=== PATIENT | female | born 1945 | race Caucasian/White ===

== ENCOUNTER 2020-06-05 08:56 | Outpatient (REF) | payer MEDICARE, SELFPAY ==
--- NOTE | 2020-06-05 | US_ITS ---
EXAMINATION: US RETROPERITONEAL LIMITED (RENAL ONLY) CLINICAL INFORMATION: Cyst of kidney. COMPARISON: Ultrasound abdomen 09/20/2019, CT abdomen without and with contrast 11/15/2019. TECHNIQUE: Real-time imaging of the kidneys. The bladder is not imaged. FINDINGS: RIGHT KIDNEY: 6.3 x 4.5 x 4.7 cm (SAG x AP x TRV). Similar size to prior exam 09/20/2019. There is no hydronephrosis, caliectasis, or visible calculi. Renal parenchymal echogenicity is normal. Lower pole cortical thinning is better appreciated on the CT exam. There is no parenchymal mass. LEFT KIDNEY: 12.3 x 5.7 x 5.1 cm (SAG x AP x TRV). There is prominent extrarenal pelvis and mild fullness upper ureter without overt hydronephrosis renal sinus or caliectasis. There is normal renal parenchymal thickness and echogenicity. The upper pole complex cystic mass for follow-up measures 4.0 x 3.8 x 3.1 cm. This is similar to prior CT measurements 4.1 x 3.8 x 2.8 cm. Again, there are are several internal septations measuring up to 3 mm in thickness. No associated vascularity seen on color Doppler within the septations. No interval solid component. US/US renal BI IMPRESSION: 1. Right: Stable renal atrophy. No hydronephrosis, calculi, or mass. 2. Left: Stable complex cystic mass upper pole 4.0 cm with moderate avascular internal septations. Fullness proximal left ureter and extrarenal pelvis. No intrarenal hydronephrosis.
== END 2020-06-05 08:57 | disposition home or self-care (01) ==
LOC: HO.HMGCX 08:56
PROVIDERS: PCP Internal Medicine; Visit Provider Urology
DX: N28.1 Cyst of kidney, acquired (principal)
CPT/HCPCS: 76775

== ENCOUNTER → 2020-06-17 11:12 | Outpatient (BNVA) | payer MEDICARE, SELFPAY | PROVIDERS: PCP Internal Medicine; Visit Provider Urology | DX: N32.81 Overactive bladder (principal); N28.1 Cyst of kidney, acquired | CPT/HCPCS: Q3014 ==

== ENCOUNTER 2020-09-14 09:27 | Outpatient (REF) | payer MEDICARE, SELFPAY ==
[2020-09-14 11:09] LABS: MANUAL DIFF FLAG NO
[2020-09-14 11:16] LABS: Basophils Absolute Auto 0.1 X10*3/uL (0.0-0.2); Basophils Percent Auto 1.2 % (0-2); Eosinophils Absolute Auto 0.2 X10*3/uL (0.0-0.4); Eosinophils Percent Auto 3.8 % (0-4); Hematocrit 39.7 % (37-47); Hemoglobin 12.5 g/dl (12.0-16.0); Imm Gran Abs Auto 0.02 X10*3/uL (0.00-0.03); Imm Gran Pct Auto 0.3 % (0.0-0.4); Lymphocytes Absolute Auto 1.5 X10*3/uL (1.2-4.9); Lymphocytes Percent Auto 26.2 % (20-40); Mean Corpuscular HGB Conc 31.5 g/dl (31.0-35.0); Mean Corpuscular Hemoglobin 28.3 pg (27.0-33.0); Mean Platelet Volume 11.5 fL (9.4-12.3); Monocytes Absolute Auto 0.6 X10*3/uL (0.1-1.2); Monocytes Percent Auto 10.3 % (2-11); Neutrophils Absolute Auto 3.4 X10*3/uL (2.0-8.3); Neutrophils Percent Auto 58.2 % (45-73); Platelet Count 213 X10*3/uL (160-400); Red Blood Count 4.41 X10*6/uL (4.20-5.50); Red Cell Distribution Width 12.7 % (11.0-16.0); White Blood Count 5.8 X10*3/uL (4.8-10.8)
[2020-09-14 11:56] LABS: Alanine Aminotransferase 31 U/L (0-31); Albumin Level 4.4 g/dL (3.5-5.0); Alkaline Phosphatase 48 U/L (39-117); Anion Gap 16 (12-20); Aspartate Amino Transferase 33 U/L (5-31); Bilirubin Total 1.2 mg/dL (0.0-1.0); Blood Urea Nitrogen 18 mg/dL (9-16); Calcium 9.9 mg/dL (8.4-10.2); Carbon Dioxide 27 mmol/L (22-29); Chloride 102 mmol/L (96-108); Cholesterol 191 mg/dL; Estimated Glomerular Filt Rate > 60; Glucose Random 95 mg/dL (60-115); HDL Cholesterol 75 mg/dL; LDL Cholesterol Calculated 102 mg/dl; Potassium 4.7 mmol/L (3.3-5.1); Sodium 140 mmol/L (135-145); Total Protein 7.3 g/dL (6.5-8.0); Triglycerides 73 mg/dL
[2020-09-14 12:18] LABS: Thyroid Stimulating Hormone 2.47 uIU/mL (0.32-4.0); Vitamin D 25-OH Total 57.1 ng/mL (>30)
[2020-09-14 12:24] LABS: Folate 15.6 ng/mL (> or = 4.0); Vitamin B12 188 pg/mL (200-900)
== END 2020-09-14 09:28 | disposition home or self-care (01) ==
LOC: HO.HMGCLDS 09:27
PROVIDERS: PCP Internal Medicine; Visit Provider Internal Medicine
DX: I10 Essential (primary) hypertension (principal); E78.00 Pure hypercholesterolemia, unspecified; R94.6 Abnormal results of thyroid function studies; M81.0 Age-related osteoporosis without current pathological fracture
CPT/HCPCS: 36415; 80053; 80061; 82306; 82607; 82746; 84439; 84443; 85025

== ENCOUNTER 2021-01-15 08:21 | Outpatient (REF) | payer MEDICARE, SELFPAY ==
--- NOTE | ~2021-01-15 | US_ITS ---
EXAMINATION: US RETROPERITONEAL LIMITED (RENAL ONLY) CLINICAL INFORMATION: Calculus of kidney. COMPARISON: Renal ultrasound 06/05/2020. CT abdomen and pelvis 11/15/2019. Ultrasound abdomen complete 09/20/2019. TECHNIQUE: Real-time imaging of the kidneys. FINDINGS: RIGHT KIDNEY: 6.6 x 3.5 x 5.0 cm (SAG x AP x TRV). The kidney is smaller than the left with lower pole renal cortical thinning or scarring. No renal stone, mass or hydronephrosis is seen. LEFT KIDNEY: 12.7 x 4.5 x 5.0 cm (SAG x AP x TRV). The kidney is normal in size, contour, and echogenicity. Renal cortical thickness is normal. There is a 4.7 x 3.9 x 4.1 cm complex cyst in the upper pole with septation or this measured 4 x 3.8 x 3.1 cm on June 2020 exam and may be slightly increased in size. No renal calculi or hydronephrosis. US/US renal BI IMPRESSION: No stone seen. Small right kidney. 4.7 x 3.9 x 4.1 cm complex left renal cyst. This may be slightly increased in size compared to previous exams.
== END 2021-01-15 08:22 | disposition home or self-care (01) ==
LOC: HO.HMGCX 08:21
PROVIDERS: PCP Internal Medicine; Visit Provider Urology
DX: N20.0 Calculus of kidney (principal); N28.1 Cyst of kidney, acquired; N28.0 Ischemia and infarction of kidney
CPT/HCPCS: 76775

== ENCOUNTER 2021-01-19 08:05 | Outpatient (REF) | payer MEDICARE, SELFPAY ==
[2021-01-20 15:37] LABS: Folate 11.8 ng/mL (> or = 4.0); Vitamin B12 575 pg/mL (200-900)
[2021-01-22 19:05] LABS: Intrinsic Factor Antibodies Negative (Negative)
[2021-01-25 14:01] LABS: Parietal Cell Antibody 46.6 Unit (<=20.0)
== END 2021-01-19 08:06 | disposition home or self-care (01) ==
LOC: HO.HMGCLDS 08:05
PROVIDERS: PCP Internal Medicine; Visit Provider Internal Medicine
DX: E53.8 Deficiency of other specified B group vitamins (principal)
CPT/HCPCS: 36415; 82607; 82746; 83516; 86340

== ENCOUNTER → 2021-07-22 08:51 | Outpatient (REF) | payer MEDICARE, SELFPAY ==
--- NOTE | 2021-07-22 08:56 | CA_ITS ---
Acquisition Time: 2021-07-22 09:04:43 Total Exercise Time: 00:04:34 Test Indications: CHEST PAIN Medications: Protocol: HEIDI Max HR: 148 BPM 100% of Pred: 147 BPM Max BP: 148/084 mmHG Max Work Load: 6.4 METS Exercise stress test with exercise 4 min 34 sec of Heidi protocol, with moderate shortness of breath, no chest discomfort, with isolated PAC which increase in stage 2 with runs of atrial bigeminy, with normotensive response to exercise, without EKG changes meeting criteria for ischemia at peak exercise, then with scooping ST segment inferiorly in recovery. Breathing normalized quickly with rest. Test reviewed with Dr Green. Message sent to Dr Wallace with above report and recommendation for pharmacological nuclear stress test for further evaluation. Referred By: Murray Wallace Overread By: JENIFFER GOMEZ
--- NOTE | 2021-07-22 08:56 | ECG_ITS ---
Test Reason : chest pain Blood Pressure : / mmHG Vent. Rate : 076 BPM Atrial Rate : 076 BPM P-R Int : 120 ms QRS Dur : 082 ms QT Int : 392 ms P-R-T Axes : 040 012 057 degrees QTc Int : 441 ms Normal sinus rhythm Normal ECG No previous ECGs available Referred By: Murray Wallace Electronically Signed By:Orville Green
== END ==
LOC: HO.CARD 08:51
PROVIDERS: PCP Internal Medicine; Visit Provider Internal Medicine
DX: R07.9 Chest pain, unspecified (principal)
CPT/HCPCS: 93005; 93017

== ENCOUNTER 2021-08-17 08:03 | Outpatient (REF) | payer MEDICARE, SELFPAY ==
--- NOTE | ~2021-08-17 | XR_ITS ---
EXAMINATION: XR CHEST CLINICAL INFORMATION: Chest pain. COMPARISON: None TECHNIQUE: 2 views of the chest were obtained. FINDINGS: The lungs are well-expanded and clear. The heart size and pulmonary vascularity is normal. No gross bony abnormality seen. There is a round calcification in the right breast likely calcified capsule surrounding the prosthesis. XR/XR chest 2V IMPRESSION: No acute cardiopulmonary process seen.
[2021-08-17 11:36] LABS: MANUAL DIFF FLAG NO
[2021-08-17 11:46] LABS: Basophils Absolute Auto 0.1 X10*3/uL (0.0-0.2); Basophils Percent Auto 1.4 % (0-2); Eosinophils Absolute Auto 0.2 X10*3/uL (0.0-0.4); Eosinophils Percent Auto 4.5 % (0-4); Imm Gran Abs Auto 0.03 X10*3/uL (0.00-0.03); Imm Gran Pct Auto 0.6 % (0.0-0.4); Lymphocytes Absolute Auto 1.5 X10*3/uL (1.2-4.9); Lymphocytes Percent Auto 29.8 % (20-40); Mean Corpuscular HGB Conc 31.6 g/dl (31.0-35.0); Mean Corpuscular Hemoglobin 28.4 pg (27.0-33.0); Mean Platelet Volume 10.8 fL (9.4-12.3); Monocytes Absolute Auto 0.6 X10*3/uL (0.1-1.2); Monocytes Percent Auto 12.2 % (2-11); Neutrophils Absolute Auto 2.5 x10*3/uL (2.0-8.3); Neutrophils Percent Auto 51.5 % (45-73); Platelet Count 209 X10*3/uL (160-400); Red Blood Count 4.22 X10*6/uL (4.20-5.50); Red Cell Distribution Width 12.9 % (11.0-16.0); White Blood Count 4.9 X10*3/uL (4.8-10.8)
[2021-08-17 11:56] LABS: Alanine Aminotransferase 25 U/L (0-31); Albumin Level 4.1 g/dL (3.5-5.0); Alkaline Phosphatase 42 U/L (39-117); Anion Gap 10 (12-20); Aspartate Amino Transferase 28 U/L (5-31); Bilirubin Total 0.8 mg/dL (0.0-1.0); Blood Urea Nitrogen 13 mg/dL (9-16); Calcium 10.1 mg/dL (8.4-10.2); Carbon Dioxide 30 mmol/L (22-29); Chloride 105 mmol/L (96-108); Cholesterol 162 mg/dL; Estimated Glomerular Filt Rate > 60; Glucose Random 101 mg/dL (60-115); HDL Cholesterol 66 mg/dL; LDL Cholesterol Calculated 85 mg/dl; Potassium 5.1 mmol/L (3.3-5.1); Sodium 140 mmol/L (135-145); Total Protein 7.2 g/dL (6.5-8.0); Triglycerides 55 mg/dL
[2021-08-17 12:17] LABS: Free T4 (Free Thyroxine) 1.01 ng/dL (0.71-1.85); Thyroid Stimulating Hormone 3.16 uIU/mL (0.32-4.0); Vitamin D 25-OH Total 53.3 ng/mL (>30)
[2021-08-17 12:25] LABS: B Type Natriuretic Peptide 73 pg/mL (<100)
[2021-08-17 12:35] LABS: Folate 17.7 ng/mL (> or = 4.0); Vitamin B12 618 pg/mL (200-900)
== END 2021-08-17 08:04 | disposition home or self-care (01) ==
LOC: HO.HMGCLDS 08:03
PROVIDERS: PCP Internal Medicine; Visit Provider Internal Medicine
DX: R07.9 Chest pain, unspecified (principal); E78.00 Pure hypercholesterolemia, unspecified
CPT/HCPCS: 36415; 71046; 80053; 80061; 82306; 82607; 82746; 83880; 84439; 84443; 85025

== ENCOUNTER 2021-10-12 15:42 | Outpatient (REF) | payer MEDICARE, SELFPAY ==
--- NOTE | 2021-10-12 17:32 | PFT_ITS ---
FLOWS: FEV1 102% of predicted at 2.48 L. FVC 97% of predicted at 3.13 L. FEV1 to FVC ratio of 0.79. No bronchodilator response. LUNG VOLUMES: Total lung capacity 94% of predicted at 5.20 L. Residual volume 84% of predicted at 2.03 L. Slow vital capacity 102% of predicted at 3.17 L. Expiratory reserve volume 64% of predicted at 0.48 L. Diffusion capacity is mildly decreased. IMPRESSION: No obstructive or restrictive ventilatory defect. No bronchodilator response. Isolated decrease in diffusion capacity suggests underlying pulmonary edema. Clinical correlation is advised. MD CARLY Garza/MODL / [id number]
== END 2021-10-12 15:43 | disposition home or self-care (01) ==
LOC: HO.RESP 15:42
PROVIDERS: PCP Internal Medicine; Visit Provider Internal Medicine
DX: R06.02 Shortness of breath (principal)
CPT/HCPCS: 94060; 94727; 94729

== ENCOUNTER → 2021-10-26 07:57 | Outpatient (REF) | payer MEDICARE, SELFPAY ==
--- NOTE | ~2021-10-26 | NM_ITS ---
Lexiscan Myocardial perfusion study Indication: Chest pain, assess for coronary disease and ischemia Technique: The patient was brought in for a Lexiscan perfusion study on 10/26/2021 and was injected 0.4 mg of Lexiscan intravenously. Within a minute of this injection 25 mCi of sestamibi was given intravenously. Images were obtained using the SPECT gamma camera interlaced with the gating device. Images were obtained in supine position. Resting perfusion study was performed on 10/29/2021. Patient was administered 25 mCi of sestamibi intravenously at rest. Images were then obtained in supine position. Total DLP 80mGy-cm. Images were processed with the software and compared side to side in short axis, horizontal long axis and vertical long axis views. Findings: Raw acquisition was reviewed. The stress perfusion study showed no significant perfusion abnormality. Both uncorrected as well as CT attenuation corrected images were reviewed. The gated study shows normal LV systolic function with calculated LVEF of 70%. LV cavity is normal in size. The gated study shows normal wall thickening and contraction of segments. Resting study shows diminished tracer uptake in the distal part of anterior wall. There is significant improvement with CT attenuation correction suggestive of soft tissue attenuation artifact. Gating at rest reveals normal wall motion with ejection fraction at > 70%. The findings are consistent with no definite reversible or fixed perfusion defects. NM/NM yonatan perf SPECT rest & str Impression: 1. Myocardial perfusion imaging study shows no definitive evidence of any ischemia or infarction. Likely normal myocardial perfusion. 2. Gated LVEF is 70% during stress; > 70% during rest. 3. Transient ischemic dilatation not present. EKG component of the test reported separately.
--- NOTE | 2021-10-26 07:59 | CA_ITS ---
Acquisition Time: 2021-10-26 08:24:09 Total Exercise Time: 00:02:00 Test Indications: Abnormal Treadmill Test Medications: Protocol: LEXISCAN Max HR: 112 BPM 76% of Pred: 146 BPM Max BP: 132/074 mmHG Max Work Load: 1.6 METS Pharmacological stress test with Lexiscan injection, while walking on treadmill, without anginal symptoms, with isolated PACs and runs of atrial bigeminy, with normotensive response to injection, with nondiagnostic EKG for ischemia. In recovery she reported dizziness that was treated with Aminophyllne 75mg IVP to reverse Lexiscan with resolution of symptom. Nuclear images pending. Test reviewed with Dr Strickland. Referred By: Murray Wallace Overread By: JENIFFER GOMEZ
== END ==
LOC: HO.CARD 07:57
PROVIDERS: PCP Internal Medicine; Visit Provider Internal Medicine
DX: R07.9 Chest pain, unspecified (principal)
CPT/HCPCS: 78452; 93017; A9500; J0280; J2785

== ENCOUNTER → 2021-12-21 14:48 | Outpatient (REF) | payer MEDICARE, SELFPAY ==
--- NOTE | 2021-12-21 14:50 | CA_ITS ---
Transthoracic Echocardiogram Patient (Last, First, Middle): Nikunj Lizama, Gender: Female Date of : 1945 Age: 76 Procedure Date: 12/21/2021 Procedure Type: Transthoracic Echocardiogram Location: OP Height: 170.18 cm Weight: 68.95 kg BSA: 1.80 m2 Heart Rate: 63 bpm Tower Switch Operator: USAMA Referring MD: Murray Wallace MD Painting Supervisor: Aric Adamson MD Symptoms: R07.9 - Chest pain, unspecified Study Quality: Adequate/TDS/Breast implants ECG Rhythm: Sinus Conclusions: - 1. Normal LV systolic function with grade 1 diastolic dysfunction 2. Normal cardiac valvular Doppler 3. Normal RV systolic pressure 4. No pericardial effusion Findings Left Ventricle Normal left ventricular size, thickness, and systolic function. The visually estimated ejection fraction is between 65-70%. Spectral Doppler is indicative of an impaired relaxation filling pattern. E/E prime ratio is <8, consistent with normal filling pressures. Evidence suggests grade I (mild) diastolic dysfunction. Peak GLS is -18.8%, within normal limits. Right Ventricle Normal right ventricular cavity size and systolic function. Atria The left atrium is normal in size. There is lipomatous hypertrophy of the interatrial septum. There is no evidence of interatrial shunt. The right atrium is normal in size. Aortic Valve The aortic valve structure and function is likely normal. There is no aortic valve stenosis. There is no aortic valve regurgitation. Mitral Valve Normal mitral valve structure and function. There is trace mitral valve regurgitation. There is no mitral valve stenosis. Pulmonic Valve The pulmonic valve was not well visualized. Tricuspid Valve Likely normal tricuspid valve structure and function. There is trace tricuspid valve regurgitation. The right ventricular systolic pressure is normal. The right ventricular systolic pressure is 24 mmHg. Normal right atrial pressure. There is no evidence of pulmonary hypertension. Great Vessels All visible segments of the aorta are normal in size. The pulmonary artery was not well visualized. Venous The inferior vena cava is normal in size and collapses greater than 50% with inspiration. Pericardium/Pleural There is no evidence of pericardial effusion. Prior Study Comparison No prior study available for comparison. Measurements 2D Linear Measurements IVSd: 1.02 0.6-0.9/0.6-1.0 cm LVIDd: 4.50 3.9-5.3/4.2-5.9 cm LVIDd Index: 2.50 2.4-3.2/2.2-3.1 cm/m2 LVIDs: 2.40 2.0-3.6 cm LVPWd: 0.48 0.7-1.1 cm LA Diam: 3.40 2.7-3.8/3.0-4.0 cm LAIDs Index: 1.89 1.5-2.3 cm/m2 LV Mass: 130.09 67-162/88-224 g LV Mass Index: 72.27 43-95/49-115 g/m2 LVOT Diam: 2.00 3.0+(-)1.3 cm 2D Systolic Function EF 4C: 72.10 >55% EF 2C: 73.90 >55% EF BiP: 72.80 >55% Mitral Valve MV Pk E: 0.63 MV PK A: 0.78 MV Decel Time: 202.00 E/A: 0.80 E'Lateral: 7.51 E'Medial: 5.98 E/E' Med: 10.50 E/E' Lat: 8.40 PHT: 59.00 MVA PHT: 3.73 Decel [place]: 3.12 Aortic Valve AoV Pk Steven: 1.34 AoV Mn Steven: 0.92 AoV VTI: 0.28 AoV Pk Grad: 7.00 Aov Mn Grad: 4.00 CARLOS Cont.VTI: 2.55 LVOT LVOT Pk Steven: 1.03 LVOT Mn Steven: 0.65 LVOT VTI: 0.23 LVOT Pk Grad: 4.00 LVOT Mn Grad: 2.00 LVOT Diam: 2.00 LVOT Area: 3.14 Diastolic Function MV Pk E: 0.63 MV Pk A: 0.78 E/A: 0.80 E'Medial: 5.98 E/E' Med: 10.50 E' Laterial: 7.51 E/E' Lat: 8.40 Right Ventricle TAPSE (mm): 26.50 TVS' Steven: 15.90 Tricuspid Valve TR Pk Steven: 1.99 TR Pk Grad: 16.00 RA Press: 8.00 RVSP: 24.00 Great Vessels Aorta Sinus of Valsalva: 3.32 2.0-3.5 cm Ao Asc: 3.50 2.1-3.4 cm Ao Arch: 3.10 Ao Desc: 2.40 Pulmonary Veins Pulm Vein S/D 1.20 Pulmonary Valve PV Pk Steven: 0.93 Peak PV Grad: 3.00 Updated in Other Vendor System with Status of Final Aric Adamson MD electronically signed on 12/21/2021 4:55:39 PM with status of Final
== END ==
LOC: HO.CARD 14:48
PROVIDERS: Visit Provider Internal Medicine
DX: R07.9 Chest pain, unspecified (principal)
CPT/HCPCS: 93306; 93356

== ENCOUNTER 2022-04-07 11:28 | Outpatient (REF) | payer MEDICARE, SELFPAY ==
--- NOTE | ~2022-04-07 | US_ITS ---
EXAMINATION: US RETROPERITONEAL LIMITED (RENAL ONLY) CLINICAL INFORMATION: Cyst of kidney, acquired. COMPARISON: Renal ultrasound 01/15/2021 and 06/05/2020. CT abdomen and pelvis 11/15/2019. TECHNIQUE: Real-time imaging of the kidneys. FINDINGS: RIGHT KIDNEY: 6.6 x 3.5 x 4.0 cm (SAG x AP x TRV). The kidney is normal in size, contour, and echogenicity. Renal cortical thickness is normal. No calculi or focal parenchymal lesions. No hydronephrosis. Atrophic right kidney LEFT KIDNEY: 13.6 x 5.4 x 5.2 cm (SAG x AP x TRV). The kidney is normal in size, contour, and echogenicity. Renal cortical thickness is normal. No renal calculi or hydronephrosis. There is a complex anechoic cyst upper pole measuring 4.6 x 3.0 x 4.1 cm. US/US renal BI IMPRESSION: Complex anechoic cyst upper pole left kidney measuring 4.6 cm. Atrophic right kidney appears unremarkable.
== END 2022-04-07 11:29 | disposition home or self-care (01) ==
LOC: HO.US 11:28
PROVIDERS: Visit Provider Urology
DX: N28.1 Cyst of kidney, acquired (principal)
CPT/HCPCS: 76775

== ENCOUNTER → 2022-04-28 13:12 | Outpatient (BNVA) | payer MEDICARE, SELFPAY | PROVIDERS: PCP Internal Medicine; Visit Provider Urology | DX: N28.1 Cyst of kidney, acquired (principal); N32.81 Overactive bladder | CPT/HCPCS: Q3014 ==

== ENCOUNTER 2022-05-17 14:06 | Outpatient (REF) | payer MEDICARE, SELFPAY ==
[2022-05-17 15:43] LABS: Hemoglobin 13.2 g/dl (12.0-16.0); Mean Corpuscular HGB Conc 32.2 g/dl (31.0-35.0); Mean Corpuscular Volume 90.1 fL (80.0-98.0); Mean Platelet Volume 11.3 fL (9.4-12.3); Platelet Count 221 X10*3/uL (160-400); Red Blood Count 4.55 X10*6/uL (4.20-5.50); Red Cell Distribution Width 12.7 % (11.0-16.0); White Blood Count 6.7 X10*3/uL (4.8-10.8)
[2022-05-17 15:51] LABS: Prothrombin Time 11.2 SEC (10.0-13.1)
[2022-05-17 16:13] LABS: Anion Gap 15 (12-20); Blood Urea Nitrogen 16 mg/dL (9-16); Calcium 10.4 mg/dL (8.4-10.2); Carbon Dioxide 25 mmol/L (22-29); Chloride 104 mmol/L (96-108); Estimated Glomerular Filt Rate > 60; Glucose Random 101 mg/dL (60-115); Potassium 4.8 mmol/L (3.3-5.1); Sodium 139 mmol/L (135-145)
== END 2022-05-17 14:07 | disposition home or self-care (01) ==
LOC: HO.LAB 14:06
PROVIDERS: PCP Internal Medicine; Referring Provider Internal Medicine; Visit Provider Internal Medicine
DX: I49.8 Other specified cardiac arrhythmias (principal); I10 Essential (primary) hypertension; R07.9 Chest pain, unspecified; R06.02 Shortness of breath; E78.5 Hyperlipidemia, unspecified; Z79.899 Other long term (current) drug therapy
CPT/HCPCS: 36415; 80048; 85027; 85610; 93005; 99202

== ENCOUNTER → 2022-05-27 08:22 | Outpatient (REF) | payer MEDICARE, SELFPAY ==
--- NOTE | 2022-05-27 08:30 | HM_ITS ---
* Total monitoring time 3 days. * Underlying rhythm is sinus. Average ventricular rate 70/Min. Range 36 to 102/Min. * Rare premature ventricular complexes. Minimal burden, 0.14%. * Occasional premature supraventricular complexes. Billings of about 1%. Very brief runs. * No sustained tachycardias. No significant bradycardia or pauses. * Rapid heartbeat in patient diary correlates with sinus rhythm. MTDD
[2022-05-27 09:13] LABS: Calcium 9.8 mg/dL (8.4-10.2)
[2022-05-29 10:17] LABS: Calcium (PTHI) 9.6 mg/dL (8.6-10.4); PTHI 63 pg/mL (16-77)
[2022-05-30 15:26] LABS: Calcium, Ionized 5.2 mg/dL (4.8-5.6)
== END ==
LOC: HO.CARD 08:22
PROVIDERS: Absent Provider Internal Medicine; PCP Internal Medicine; Visit Provider Internal Medicine
DX: I49.8 Other specified cardiac arrhythmias (principal); R06.02 Shortness of breath; E83.52 Hypercalcemia
CPT/HCPCS: 36415; 82310; 82330; 83970; 93242

== ENCOUNTER 2022-05-31 08:28 | Outpatient (REF) | payer MEDICARE, SELFPAY ==
--- NOTE | ~2022-05-31 | MM_ITS ---
EXAMINATION: BONE DENSITOMETRY CLINICAL INDICATION: Hypercalcemia. COMPARISON: Baseline BD dated 07/18/2019. TECHNIQUE: Using a [employer] DXA System (software version: 13.1) manufactured by [employer], dual-energy x-ray absorptiometry was performed of the lumbar spine and left hip. The images are of good technical quality. Summary results are attached. FINDINGS: AP SPINE L1-L4: Current: BMD 0.793 g/cm2, Z-score -1.6, T-score -3.2, osteoporosis, 15.4% decrease from baseline (<5% change is not significant). Baseline: BMD 0.937 g/cm2. LEFT FEMUR, NECK: Current: BMD 0.658 g/cm2, Z-score -0.9, T-score -2.7, osteoporosis. Baseline: BMD 0.724 g/cm2. LEFT FEMUR, TOTAL: Current: BMD 0.648 g/cm2, Z-score -1.2, T-score -2.9, osteoporosis, 6.4% decrease from baseline (<5% change is not significant). Baseline: BMD 0.692 g/cm2. IDENTIFIED RISK FACTORS: Menopause, family history (parental hip fracture), history of fracture (adult), osteoporosis. HISTORY OF FRACTURE: Ankle. MEDICATIONS: Vitamin D. MM/XR DEXA axial skeleton IMPRESSION: 1. DIAGNOSIS: Osteoporosis based on the lowest T-score value of -3.2 in the lumbar spine applying World Health Organization criteria. 2. 10-YEAR FRACTURE RISK PREDICTION, FRAX: According to the guidelines, FRAX calculation should only be performed on patients in the osteopenia bone density category. Therefore, FRAX was not performed on this patient. 3. Treatment Recommendations: NOF guidelines recommend consideration for treatment in postmenopausal women and men age 50 and older presenting with the following: -A hip or vertebral (clinical or morphometric) fracture. -T-score less than or equal to -2.5 at the femoral neck or spine after appropriate evaluation to exclude secondary causes. -Low bone mass at the hip or spine and a 10-year fracture probability by FRAX of greater than or equal to 3% for hip fracture or greater than or equal to 20% for major osteoporotic fracture based on the [place] adapted WHO algorithm. 4. Other Recommendations: All treatment decisions require clinical judgment and consideration of individual patient factors, including patient preferences, comorbidities, previous drug use, risk factors not captured in the FRAX model (e.g. frailty, falls, vitamin D deficiency, increased bone turnover, interval significant decline in bone density) and possible under or overestimation of fracture risk by FRAX. Additional medical evaluation for secondary cause of low bone mineral density may be appropriate. FUTURE SCAN RECOMMENDATION: People with diagnosed cases of osteoporosis or at high risk for fracture should have regular bone mineral density tests. For patients eligible for Medicare, routine testing is allowed once every 2 years. The testing frequency can be increased to one year for patients who have rapidly progressing disease, those who are receiving or discontinuing medical therapy to restore bone mass, or have additional risk factors.
== END 2022-05-31 08:29 | disposition home or self-care (01) ==
LOC: HO.MAMMO 08:28
PROVIDERS: PCP Internal Medicine; Visit Provider Internal Medicine
DX: Z13.820 Encounter for screening for osteoporosis (principal); Z78.0 Asymptomatic menopausal state; M81.0 Age-related osteoporosis without current pathological fracture; E83.52 Hypercalcemia
CPT/HCPCS: 77080

== ENCOUNTER → 2022-06-29 13:38 | Outpatient (BNVA) | payer MEDICARE, SELFPAY | PROVIDERS: PCP Internal Medicine; Referring Provider Internal Medicine; Visit Provider Nurse Practitioner Family | DX: R06.02 Shortness of breath (principal); R07.9 Chest pain, unspecified; I25.10 Atherosclerotic heart disease of native coronary artery without angina pectoris; I10 Essential (primary) hypertension; Z98.890 Other specified postprocedural states | CPT/HCPCS: 99212 ==

== ENCOUNTER → 2022-09-06 09:47 | Outpatient (BNVA) | payer MEDICARE, SELFPAY | PROVIDERS: PCP Internal Medicine; Visit Provider Internal Medicine | DX: R06.02 Shortness of breath (principal); Z98.890 Other specified postprocedural states | CPT/HCPCS: 99202 ==

== ENCOUNTER → 2022-12-27 13:03 | Outpatient (BNVA) | payer MEDICARE, SELFPAY | PROVIDERS: PCP Internal Medicine; Referring Provider Internal Medicine; Visit Provider Internal Medicine | DX: I51.89 Other ill-defined heart diseases (principal); I49.8 Other specified cardiac arrhythmias; R06.02 Shortness of breath; I10 Essential (primary) hypertension | CPT/HCPCS: 93005; 99212 ==

== ENCOUNTER 2023-03-24 08:07 | Outpatient (REF) | payer MEDICARE, SELFPAY ==
[2023-03-24 12:26] LABS: Anion Gap 12 (12-20); Blood Urea Nitrogen 13 mg/dL (9-16); Calcium 10.1 mg/dL (8.4-10.2); Carbon Dioxide 28 mmol/L (22-29); Chloride 101 mmol/L (96-108); Estimated Glomerular Filt Rate > 60; Glucose Random 94 mg/dL (60-115); Potassium 4.3 mmol/L (3.3-5.1); Sodium 137 mmol/L (135-145)
== END 2023-03-24 08:08 | disposition home or self-care (01) ==
LOC: HO.HMGCLDS 08:07
PROVIDERS: PCP Internal Medicine; Visit Provider Internal Medicine
DX: I25.10 Atherosclerotic heart disease of native coronary artery without angina pectoris (principal)
CPT/HCPCS: 36415; 80048

== ENCOUNTER 2023-03-30 12:42 | Outpatient (AMB) | payer MEDICARE, SELFPAY ==
--- NOTE | 2023-03-30 12:43 | MHC.OFFVIS ---
Intake Vital Signs 03/30/23 12:45 Height 5 ft 7.5 in Weight 148 lb 9.465 oz BMI 22.9 BP 129/66 Blood Pressure Location Lt brachial Position Sitting Respiration 16 Pulse 96 Pulse Source Pulse Oximeter Pulse Oximetry (%) 100 Oxygen Delivery Method Room Air Intake Visit Reasons: 3 mth f/up Golf Ball Cover Treater Required: No Allergies sulfur Allergy (Unknown, Verified 03/30/23 12:48) hives Medication List - Last Reconciled 03/30/23 by Los Strickland MD albuterol sulfate 90 mcg/actuation (Ventolin HFA) 2 puffs inhalation Q4-6H PRN amlodipine 10 mg PO DAILY 90 days atorvastatin 80 mg PO DAILY biotin 10,000 mcg PO DAILY cholecalciferol (vitamin D3) 25 mcg PO DAILY cyanocobalamin (vitamin B-12) 1,000 mcg PO DAILY oxybutynin chloride ER 10 mg PO DAILY 90 days rimegepant (Nurtec ODT) 75 mg PO Q OTHER DAY spironolacton-hydrochlorothiaz 25-25 mg 1 tab PO DAILY vitamin B comp and C no.3 (B Complex Plus Vitamin C) 1 cap PO DAILY HPI HPI Comments History of Present Illness Details Nikunj returns for follow-up. She was seen in consultation regarding shortness of breath and chest discomfort. Per patient, she still feels short of breath with any kind of activity. She underwent extensive workup including cardiac catheterization but no significant findings. Denies any history of prior smoking. Symptoms possibly related to exercise-induced diastolic dysfunction but not clear. Deconditioning also may play a role. [facility] Medical History (Updated 12/27/22 @ 15:41 by Los Strickland MD) Hypercalcemia Atrial arrhythmia Shortness of breath on exertion Chest pain Vitamin B12 deficiency Impacted cerumen of right ear TSH elevation CVA (cerebral vascular accident) Anemia Left renal mass Osteoporosis Hypertension Hypercholesterolemia Surgical History History of ankle surgery History of breast implant History of bunionectomy History of cardiac cath History of tubal ligation Family History Father Colon cancer Mother CHF (congestive heart failure) Daughter In good health Son In good health Sister In good health Sister In good health Sister In good health Brother In good health Social History Housing: House Alcohol intake: current Alcohol intake frequency: a few times a month Patient Tobacco Use Status: Never used Tobacco e-Cigarette/Vaping Use: Never Used Second Hand Smoke Exposure: No Current occupational status: retired Cognitive needs: No Hearing needs: Yes Vision needs: Yes Review of Systems Const Denies weakness ENT Denies dizziness Card Denies chest pain, Denies chest pain with activity, Denies syncope, Denies rapid heart rate, Denies pedal edema, Denies edema, Denies leg edema, Denies lightheadedness, Denies palpitations, Reports dyspnea, Reports dyspnea on exertion and Denies orthopnea Resp Denies cough, Reports dyspnea and Reports dyspnea on exertion GI Denies hematochezia and Denies change in stool character Reports no additional complaints and Reports as per HPI Musc Denies abnormal gait, Denies muscle cramps, Denies muscle weakness, Denies numbness, Denies radiating pain into limb and Denies tingling Skin/Breast Reports system reviewed and no additional complaints, except as documented and Reports as per HPI Neuro Denies abnormal gait, Denies dizziness, Denies syncope, Denies numbness, Denies tingling and Denies weakness Psych Reports no additional complaints and Reports as per HPI Endo Denies palpitations Physical Exam Vital Signs: Last Vital Signs Pulse 96 03/30/23 12:45 Resp 16 03/30/23 12:45 BP 129/66 03/30/23 12:45 Pulse Ox 100 03/30/23 12:45 Oxygen Delivery Method Room Air 03/30/23 12:45 BMI result Body Mass Index 22.9 Const General: comfortable and no acute distress Orientation/consciousness: patient oriented x3 HEENT Other: Unremarkable Head: Yes normal to inspection Neck Neck: Yes normal visual inspection Chest Chest palpation & inspection: normal inspection of the chest Resp Auscultation: clear to auscultation bilaterally Cardio Palpation: normal PMI Heart sounds: S1 normal heart sound present, S2 normal heart sound present, no gallops, no murmurs and no rubs GI Palpation (GI): Soft to palpation Back/Spine/Pelvis Other: unremarkable Skin General skin exam: no rashes or lesions noted Neuro General: patient oriented x3 Extrem General: Yes normal to inspection Psych Mental Status: mental status grossly normal Assessment & Plan Assessment & Plan (1) Shortness of breath on exertion: Code(s): R06.02 - Shortness of breath (2) Diastolic dysfunction: Code(s): I51.89 - Other ill-defined heart diseases (3) Atrial arrhythmia: Code(s): I49.8 - Other specified cardiac arrhythmias (4) Essential hypertension: Code(s): I10 - Essential (primary) hypertension Plan Pertinent data reviewed. Echocardiogram with LVEF 65-70%, no significant valvular pathology otherwise unremarkable. Mild diastolic dysfunction with normal filling pressures. Strain was also unremarkable. Myocardial perfusion imaging study without any definitive evidence of ischemia or infarction. In pulmonary function testing, described to have decreased diffusion capacity suggesting pulmonary edema. However, no obstructive or restrictive defects. In the cardiac catheterization, proximal circumflex/1st marginal 40% stenosis. Otherwise unremarkable. Normal left and right-sided filling pressures. She may have exercise-induced diastolic dysfunction/pulmonary hypertension. Other possibility being deconditioned. We will try to do an exercise stress echocardiogram, specifically looking at the diastolic parameters/pulmonary artery pressure. Will also get a chest CT scan. Otherwise, continue current meds for blood pressure. They seem to be better regulated. Follow-up after the above. Orders: Orders CA echo stress exercise Today I27.20 - Pulmonary hypertension, unspecified, I51.89 - Other ill-defined heart diseases, R06.02 - Shortness of breath CT chest wo IV con Today R06.02 - Shortness of breath Coding Level of Care Code Est Pt Level 4 (21521) Diagnoses Shortness of breath on exertion R06.02 Diastolic dysfunction I51.89 Atrial arrhythmia I49.8 Essential hypertension I10
[2023-03-30 12:45] VITALS: BP 129/66; PULSE 96; RESP 16; O2SAT 100; BMI 22.9
== END 2023-03-30 13:05 | disposition home or self-care (01) ==
PROVIDERS: PCP Internal Medicine; Visit Provider Internal Medicine
DX: R06.02 Shortness of breath (principal); I51.89 Other ill-defined heart diseases; I49.8 Other specified cardiac arrhythmias; I10 Essential (primary) hypertension
CPT/HCPCS: 99214

== ENCOUNTER → 2023-03-30 12:42 | Outpatient (BNVA) | payer MEDICARE, SELFPAY | PROVIDERS: PCP Internal Medicine; Visit Provider Internal Medicine | DX: R06.02 Shortness of breath (principal); I11.9 Hypertensive heart disease without heart failure; I49.8 Other specified cardiac arrhythmias | CPT/HCPCS: 99212 ==

== ENCOUNTER 2023-04-11 08:49 | Outpatient (REF) | payer MEDICARE, SELFPAY ==
--- NOTE | ~2023-04-11 | US_ITS ---
EXAMINATION: US RETROPERITONEAL LIMITED (RENAL ONLY) CLINICAL INFORMATION: Cyst of kidney, acquired. COMPARISON: Ultrasound retroperitoneal limited (renal only) 04/07/2022 and 01/15/2021. CT abdomen and pelvis 11/15/2019. TECHNIQUE: Real-time imaging of the kidneys. FINDINGS: RIGHT KIDNEY: 6.4 x 3.7 x 4.6 cm (SAG x AP x TRV). The kidney is normal in contour and echogenicity. Renal cortical thickness is normal. No calculi or focal parenchymal lesions. No hydronephrosis. LEFT KIDNEY: 14.0 x 5.6 x 4.8 cm (SAG x AP x TRV). The kidney is normal in size, contour, and echogenicity. Renal cortical thickness is normal. No renal calculi or hydronephrosis. Upper pole cyst with calcified septations measuring 4.6 x 3.8 x 4.2 cm. US/US renal BI IMPRESSION: Complex left upper pole cyst. Bosniak 2F.
== END 2023-04-11 08:50 | disposition home or self-care (01) ==
LOC: HO.HMGCX 08:49
PROVIDERS: PCP Internal Medicine; Visit Provider Nurse Practitioner Family
DX: N28.1 Cyst of kidney, acquired (principal)
CPT/HCPCS: 76775

== ENCOUNTER → 2023-04-13 10:47 | Outpatient (REF) | payer MEDICARE, SELFPAY ==
--- NOTE | 2023-04-13 10:55 | CA_ITS ---
Acquisition Time: 2023-04-13 11:13:53 Total Exercise Time: 00:04:57 Test Indications: Dyspnea Medications: SEE H Protocol: HEIDI Max HR: 162 BPM 111% of Pred: 145 BPM Max BP: 134/080 mmHG Max Work Load: 6.9 METS Exercise stress test exercise 4 min 57 sec of Heidi protocol achieving 94% MPHR, with moderate SOB, no chest discomfort, without arrhythmias, with normotensive response to exercise, with downsloping noted leads 2, 3, aVF . Echo images obtained by tech at rest and immediately post exercise. Test reviewed with Dr. Green Exercise stress echocardiogram reviewed. This was done for diastolic function assessment. Resting medial e' 8cm/s. Resting lateral e' 6cm/s. E/e' 7. Resting PASP 24mmHg. Post exercise medial e' 6cm/s; lateral e' 7cm/s; E/e' 11; PASP 38mmHg. Overall, no clear evidence of exercise induced diastolic dysfunction or pulmonary hypertension. Referred By: Michael Strickland Overread By: MICHAEL STRICKLAND
== END ==
LOC: HO.CARD 10:47
PROVIDERS: Visit Provider Internal Medicine
DX: R06.02 Shortness of breath (principal); I51.89 Other ill-defined heart diseases
CPT/HCPCS: 93017; 93350; Q9957

== ENCOUNTER → 2023-04-13 10:55 | Outpatient (BNV) | payer MEDICARE, SELFPAY | PROVIDERS: Visit Provider Internal Medicine | DX: R06.02 Shortness of breath (principal) | CPT/HCPCS: 93016; 93018; 93350 ==

== ENCOUNTER 2023-04-20 07:31 | Outpatient (REF) | payer MEDICARE, SELFPAY ==
--- NOTE | ~2023-04-20 | CT_ITS ---
EXAMINATION: CT CHEST WITHOUT CONTRAST CLINICAL INFORMATION: Shortness of breath. COMPARISON: Chest x-ray to. TECHNIQUE: Multidetector volumetric CT imaging of the chest was done. Axial MIP volume rendering provided. Sagittal and coronal reformatted images were obtained. This CT examination was performed using dose optimization techniques as appropriate, variously including the following: *Automated exposure control *Adjustment of mA and/or kV according to patient size (this includes techniques or standardized protocols for targeted exams where dose is matched to indication/reason for exam; i.e. extremities or head) *Use of iterative reconstruction technique DLP: 129 mGy-cm FINDINGS: LUNGS: No consolidation. No evidence of interstitial lung disease. Scattered micronodules. 6 mm average diameter groundglass nodule left upper lobe series 5 image 186. 6 mm average diameter part solid nodule superior segment right lower lobe series 5 image 242. MEDIASTINUM: No adenopathy. No pericardial effusion. Thoracic aorta top normal at 3.9 cm. Small hiatal hernia. CORONARY ARTERY CALCIFICATION: Mild RCA and LAD calcium. PLEURA: There is no pleural effusion. No pleural mass or thickening. AXILLA: No lymphadenopathy. Peripherally calcified breast implants. No focal chest wall mass. UPPER ABDOMEN: Simple cysts in the upper left kidney. No follow-up imaging is recommended. Degenerative changes in the spine. OSSEOUS STRUCTURES: Unremarkable. CT/CT chest wo IV con IMPRESSION: No acute findings. No focal pneumonia. Two 6 mm groundglass and part solid nodules as above. Per Fleischner Society Guidelines recommend a non-contrast chest CT at 3-6 months. Subsequent management based on the most suspicious nodule(s). Fleischner guidelines were followed.
== END 2023-04-20 07:32 | disposition home or self-care (01) ==
LOC: HO.CT 07:31
PROVIDERS: Visit Provider Internal Medicine
DX: R06.02 Shortness of breath (principal)
CPT/HCPCS: 71250

== ENCOUNTER 2023-05-02 13:15 | Outpatient (REF) | payer MEDICARE, SELFPAY | END 2023-05-02 13:16 | disposition home or self-care (01) | LOC: CF 13:15 | PROVIDERS: Visit Provider Nurse Practitioner Family | DX: N28.1 Cyst of kidney, acquired (principal); R35.1 Nocturia; R39.15 Urgency of urination; R35.0 Frequency of micturition; R39.9 Unspecified symptoms and signs involving the genitourinary system | CPT/HCPCS: 81003; 87086; 87088; 87186; 99212 ==

== ENCOUNTER 2023-05-02 13:15 | Outpatient (AMB) | payer MEDICARE, SELFPAY ==
--- NOTE | 2023-05-02 13:35 | MHC.OFFVIS ---
Intake Intake Visit Reasons: Cyst of Kidney- 1yr follow up/US(set) Intake Note: Patient presents today for 1 year follow-up with US Results: Meds- None Allergies to Antibiotic- No Known Allergies Blood Thinner- None Patient Symptoms: None Local Superintendent Required: No Accompanied by: Self / Same As Patient Allergies sulfur Allergy (Unknown, Verified 05/02/23 14:03) hives Medication List - Last Reconciled 05/02/23 by ENID Zeng-TITA albuterol sulfate 90 mcg/actuation (Ventolin HFA) 2 puffs inhalation Q4-6H PRN amlodipine 10 mg PO DAILY 90 days atorvastatin 80 mg PO DAILY biotin 10,000 mcg PO DAILY cholecalciferol (vitamin D3) 25 mcg PO DAILY cyanocobalamin (vitamin B-12) 1,000 mcg PO DAILY nitrofurantoin monohyd/m-cryst 100 mg (Macrobid) 100 mg PO Q12H 7 days oxybutynin chloride ER 10 mg PO DAILY 90 days rimegepant (Nurtec ODT) 75 mg PO Q OTHER DAY spironolacton-hydrochlorothiaz 25-25 mg 1 tab PO DAILY vitamin B comp and C no.3 (B Complex Plus Vitamin C) 1 cap PO DAILY HPI HPI Comments History of Present Illness Details Danielle is a very pleasant 77-year-old female patient. She has a past medical history of hypercalcemia, atrial rhythm E a, vitamin B12 deficiency, CVA, anemia, osteoporosis, hypertension, hypercholesteremia, and left renal cyst. She presents to the office today for follow-up of her complex renal cyst. In discussion with the patient today she reports to be doing and feeling well. She reports noting over the last 1-2 weeks increased episodes of nocturia, urinary urgency, and frequency. In office urinalysis results reviewed with the patient today 3+ leukocytes/negative nitrates; will send for urine culture. Recent renal ultrasound results reviewed with the patient today. Complex left upper pole cyst. Bosniak 2 F. bilateral kidneys with no calculi and or hydronephrosis. Left upper pole cyst with calcified septations measuring 4.6 x 3.8 x 4.2 cm. Discussed at length potential causes for renal cysts. Patient otherwise denies hematuria, dysuria, foul smelling urine, changes to urinary stream, flank pain, fever, and or chills. PFSH Medical History Hypercalcemia Atrial arrhythmia Shortness of breath on exertion Chest pain Vitamin B12 deficiency Impacted cerumen of right ear TSH elevation CVA (cerebral vascular accident) Anemia Left renal mass Osteoporosis Hypertension Hypercholesterolemia Surgical History History of ankle surgery History of breast implant History of bunionectomy History of cardiac cath History of tubal ligation Family History Father Colon cancer Mother CHF (congestive heart failure) Daughter In good health Son In good health Sister In good health Sister In good health Sister In good health Brother In good health Social History Housing: House Alcohol intake: current Alcohol intake frequency: a few times a month Patient Tobacco Use Status: Never used Tobacco e-Cigarette/Vaping Use: Never Used Second Hand Smoke Exposure: No Current occupational status: retired Cognitive needs: No Hearing needs: Yes Vision needs: Yes Review of Systems Const Reports as per HPI Eyes Reports no additional complaints ENT Reports no additional complaints Card Reports as per HPI Resp Reports no additional complaints GI Reports no additional complaints Reports as per HPI Musc Reports as per HPI Neuro Reports as per HPI Psych Reports no additional complaints Endo Reports no additional complaints Malik/Lymph Reports no additional complaints Aller/Immun Reports no additional complaints Physical Exam Const General: cooperative, healthy appearing, comfortable, no acute distress, well developed, alert and awake Orientation/consciousness: patient oriented x3 Limitations: no limitations HEENT Head: Yes normal to inspection, Yes normocephalic and Yes atraumatic Ears: hearing grossly normal bilaterally Eyes General: appearance normal, both eyes and all related structures Neck Neck: Yes normal visual inspection and Yes trachea midline Chest Chest palpation & inspection: normal inspection of the chest Resp Effort & Inspection: normal respiratory effort and able to speak in complete sentences Cardio Rate: regular rate GI Inspection: Yes normal to inspection General: Yes no CVA tenderness Back/Spine/Pelvis Back: no CVA tenderness Skin General skin exam: no rashes or lesions noted Neuro General: patient oriented x3 Extrem General: Yes normal to inspection Psych Appearance: grossly normal and well kempt Mental Status: mental status grossly normal Speech and movement: Normal speech and movement present and Clear speech present Affect: normal affect Attitude: cooperative Thought process: Normal thought process present Thought content: Normal thought content present Insight: Fair insight present (Psych) Judgement: Fair judgement present (Psych) Results AMB Urinalysis, Automated UA Leukoctes 500 Oleksandr/uL Last Edit by Javan Ogden Jarett on 05/02/23 13:43 3+ Javan Ogden 05/02/23 13:43 UA Nitrite Negative Last Edit by Javan Ogden [facility] on 05/02/23 13:43 UA Urobilinogen 0.2 mg/dL Last Edit by Javan Ogden [facility] on 05/02/23 13:43 UA Protein 15 mg/dL Last Edit by Javan Ogden [facility] on 05/02/23 13:43 UA pH 6.5 Last Edit by Javan Ogden [facility] on 05/02/23 13:43 UA Blood 0 Carson/uL Last Edit by Javan Ogden [facility] on 05/02/23 13:43 UA Specific [place] 1.010 Last Edit by Javan Ogden [facility] on 05/02/23 13:43 UA Ketone Negative Last Edit by Javan Ogden [facility] on 05/02/23 13:43 UA Bilirubin 0 mg/dL Last Edit by Javan Ogden [facility] on 05/02/23 13:43 UA Glucose 0 mg/dL Last Edit by Javan Ogden [facility] on 05/02/23 13:43 Results Reviewed Results Reviewed: Laboratory Last Values Urine pH (Auto) 6.5 05/02/23 13:37 Specific [place] (Auto) 1.010 05/02/23 13:37 Urine Protein (Auto) 15 mg/dL 05/02/23 13:37 Glucose (UA)(Auto) 0 mg/dL 05/02/23 13:37 Urine Ketones (Auto) Negative 05/02/23 13:37 Urine Blood (Auto) 0 Carson/uL 05/02/23 13:37 Urine Nitrite (Auto) Negative 05/02/23 13:37 Urine Bilirubin (Auto) 0 mg/dL 05/02/23 13:37 Urine Urobilinogen (Auto) 0.2 mg/dL 05/02/23 13:37 Leukocyte Esterase (Auto) 500 Oleksandr/uL 05/02/23 13:37 Date of Service: 04/11/23 EXAMINATION: US RETROPERITONEAL LIMITED (RENAL ONLY) CLINICAL INFORMATION: Cyst of kidney, acquired. COMPARISON: Ultrasound retroperitoneal limited (renal only) 04/07/2022 and 01/15/2021. CT abdomen and pelvis 11/15/2019. TECHNIQUE: Real-time imaging of the kidneys. FINDINGS: RIGHT KIDNEY: 6.4 x 3.7 x 4.6 cm (SAG x AP x TRV). The kidney is normal in contour and echogenicity. Renal cortical thickness is normal. No calculi or focal parenchymal lesions. No hydronephrosis. LEFT KIDNEY: 14.0 x 5.6 x 4.8 cm (SAG x AP x TRV). The kidney is normal in size, contour, and echogenicity. Renal cortical thickness is normal. No renal calculi or hydronephrosis. Upper pole cyst with calcified septations measuring 4.6 x 3.8 x 4.2 cm. IMPRESSION: Complex left upper pole cyst. Bosniak 2F. Assessment & Plan Assessment & Plan (1) Complex renal cyst: Code(s): N28.1 - Cyst of kidney, acquired (2) Nocturia: Code(s): R35.1 - Nocturia (3) Urinary urgency: Code(s): R39.15 - Urgency of urination (4) Urinary frequency: Code(s): R35.0 - Frequency of micturition (5) Lower urinary tract symptoms: Code(s): R39.9 - Unspecified symptoms and signs involving the genitourinary system Plan Urinalysis results reviewed with the patient today; as noted above; will send for urine culture. Recent renal ultrasound results reviewed with the patient today; as noted above. Start Macrobid as discussed and prescribed. Discussed at length potential causes for renal cyst. Discussed UTI prevention with D mannose supplement, vitamin-C, increasing fluid intake, behavioral therapy with timed voiding, perineal hygiene and postcoital voiding, and management of constipation with stool softeners and increased fiber intake. Will obtain retroperitoneal ultrasound in 1 year. Follow-up in 1 year with imaging to be completed prior; or sooner with any issues, concerns, and or questions. Orders: Orders Urine Culture Today R35.1 - Nocturia, R39.15 - Urgency of urination US retroperitoneal comp 364 Days N28.1 - Cyst of kidney, acquired AMB Urinalysis Automated Today Z13.9 - Encounter for screening, unspecified Medications: New nitrofurantoin monohyd/m-cryst 100 mg (Macrobid) must administer with a meal/food 100 mg PO Q12H 14 caps 0RF 7 days Patient Instructions: The patient had an opportunity to ask questions regarding the treatment plan. All questions were answered. Physical exam, labs, and imaging were discussed and reviewed in detail. As well as risks, benefits, and discussion of treatment choices. No major barriers to understanding were identified. The patient expressed understanding and agreement with the above treatment plan. The patient was made aware they should contact our office by phone for worsening of their current condition, the appearance of new symptoms, or with any questions or concerns. Compliance is encouraged with any medications and follow up testing that is ordered. It is a privilege to be allowed the opportunity to participate in? your urological care.? Again, if you have any questions or concerns If you have any questions or concerns please do not hesitate to contact me. The office is [phone]. This note is constructed using voice recognition software. While every effort has been made to ensure accuracy watermelon harvesting supervisor errors may have been included. Yours sincerely, PAMELA Zeng Coding Level of Care Code Est Pt Level 4 (69375) Diagnoses Complex renal cyst N28.1 Nocturia R35.1 Urinary urgency R39.15 Urinary frequency R35.0 Lower urinary tract symptoms R39.9
== END 2023-05-02 14:06 | disposition home or self-care (01) ==
PROVIDERS: Visit Provider Nurse Practitioner Family
DX: N28.1 Cyst of kidney, acquired (principal); R35.1 Nocturia; R39.15 Urgency of urination; R35.0 Frequency of micturition; R39.9 Unspecified symptoms and signs involving the genitourinary system
CPT/HCPCS: 99214

== ENCOUNTER 2023-06-02 08:37 | Outpatient (REF) | payer MEDICARE, SELFPAY ==
[2023-06-02 11:22] LABS: MANUAL DIFF FLAG NO
[2023-06-02 11:36] LABS: Basophils Absolute Auto 0.1 X10*3/uL (0.0-0.2); Basophils Percent Auto 1.7 % (0-2); Eosinophils Absolute Auto 0.2 X10*3/uL (0.0-0.4); Imm Gran Abs Auto 0.03 X10*3/uL (0.00-0.03); Imm Gran Pct Auto 0.5 % (0.0-0.4); Lymphocytes Absolute Auto 1.9 X10*3/uL (1.2-4.9); Lymphocytes Percent Auto 31.1 % (20-40); Mean Corpuscular HGB Conc 31.7 g/dl (31.0-35.0); Mean Corpuscular Hemoglobin 29.7 pg (27.0-33.0); Mean Corpuscular Volume 93.8 fL (80.0-98.0); Mean Platelet Volume 11.4 fL (9.4-12.3); Monocytes Absolute Auto 0.7 X10*3/uL (0.1-1.2); Neutrophils Absolute Auto 3.1 x10*3/uL (2.0-8.3); Neutrophils Percent Auto 50.7 % (45-73); Platelet Count 208 X10*3/uL (160-400); Red Blood Count 4.37 X10*6/uL (4.20-5.50); Red Cell Distribution Width 12.9 % (11.0-16.0)
[2023-06-02 12:24] LABS: Alanine Aminotransferase 61 U/L (0-31); Albumin Level 4.3 g/dL (3.5-5.0); Alkaline Phosphatase 38 U/L (39-117); Anion Gap 14 (12-20); Aspartate Amino Transferase 71 U/L (5-31); Bilirubin Total 0.8 mg/dL (0.0-1.0); Blood Urea Nitrogen 16 mg/dL (9-16); Calcium 10.3 mg/dL (8.4-10.2); Carbon Dioxide 27 mmol/L (22-29); Chloride 102 mmol/L (96-108); Cholesterol 188 mg/dL (<200); Estimated Glomerular Filt Rate > 60; Glucose Random 97 mg/dL (60-115); HDL Cholesterol 73 mg/dL (>40); LDL Cholesterol Calculated 100 mg/dL (<100); Sodium 139 mmol/L (135-145); Total Protein 8.1 g/dL (6.5-8.0); Triglycerides 78 mg/dL (<150)
[2023-06-02 12:26] LABS: Free T4 (Free Thyroxine) 1.02 ng/dL (0.71-1.85); Thyroid Stimulating Hormone 2.72 uIU/mL (0.32-4.0); Vitamin D 25-OH Total 47.2 ng/mL (>30)
[2023-06-02 12:31] LABS: Folate 15.3 ng/mL (> or = 4.0); Vitamin B12 > 2000 pg/mL (200-900)
== END 2023-06-02 08:38 | disposition home or self-care (01) ==
LOC: HO.HMGCLDS 08:37
PROVIDERS: PCP Internal Medicine; Visit Provider Internal Medicine
DX: E78.00 Pure hypercholesterolemia, unspecified (principal); M81.0 Age-related osteoporosis without current pathological fracture
CPT/HCPCS: 36415; 80053; 80061; 82306; 82607; 82746; 84439; 84443; 85025

== ENCOUNTER 2023-06-09 10:48 | Outpatient (AMB) | payer MEDICARE, SELFPAY ==
[2023-06-09 10:51] VITALS: BP 140/80; PULSE 63; O2SAT 95; BMI 24.6
--- NOTE | 2023-06-09 10:51 | A.OFFVIS_ITS ---
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 Patient presents today for subsequent annual wellness visit. Bone density screening completed 05/2022 showed osteoporosis Mammogram: Patient reports that she will no longer go for mammogram screening. Colonoscopy: Referral entered Eye exam: Goes for yearly eye exam. Healthcare proxy MOLST forms root with patient in office today patient advised to bring completed forms into office to be scanned into chart. [place] of care was reviewed with patient patient was provided with a written screening schedule Labs reviewed in office with patient today, noted to have elevated calcium 10.3. Labs ordered to follow-up on calcium level, ionized calcium and PTH ordered. Patient noted to have elevated LFTs will repeat LFTs in draw hepatitis panel to further evaluate. [facility] Medical History (Updated 06/09/23 @ 11:28 by ENID Perales) Hypercalcemia Atrial arrhythmia Shortness of breath on exertion Chest pain Vitamin B12 deficiency Impacted cerumen of right ear TSH elevation CVA (cerebral vascular accident) Anemia Left renal mass Osteoporosis Hypertension Hypercholesterolemia Surgical History History of cardiac cath History of ankle surgery History of bunionectomy History of breast implant History of tubal ligation Family History Father Colon cancer Mother CHF (congestive heart failure) Daughter In good health Son In good health Sister In good health Sister In good health Sister In good health Brother In good health Social History Housing: House Alcohol intake: current Alcohol intake frequency: a few times a month Patient Tobacco Use Status: Never used Tobacco e-Cigarette/Vaping Use: Never Used Second Hand Smoke Exposure: No Current occupational status: retired Cognitive needs: No Hearing needs: Yes Vision needs: Yes Questionnaire Medicare Wellness Checkup [age] What gender do you identify with?: female During the past 4 weeks, how much have you been bothered by emotional problems such as feeling anxious, depressed, irritable, sad or downhearted, and blue?: quite a bit During the past 4 weeks, has your physical & emotional health limited your social activities with family, friends, neighbors, or groups?: moderately During the past 4 weeks, how much bodily pain have you generally had?: no pain During the past 4 weeks, was someone available to help you if you needed & wanted help?: yes, quite a bit During the past 4 weeks, what was the hardest physical activity you could do for at least 2 minutes?: heavy Can you get to places out of walking distance without help? (For eg., can you travel alone on buses, taxis or drive your car?): Yes Can you go shopping for groceries or clothes without someone's help?: Yes Can you prepare your own meals?: Yes Can you do your housework without help?: Yes Because of any health problems, do you need the help of another person with your personal care needs such as eating, bathing, dressing or getting around the terrie se?: No Can you handle your own money without help?: Yes During the past 4 weeks, how would you rate your health in general?: fair During the past 4 weeks how have things been going for you?: good & bad parts about equal Are you having difficulties driving your car?: no Do you always fasten your seat belt when you are in a car?: yes, usually During past 4 weeks, have you been bothered by the following: never: Teeth or denture problems? and Problems using the telephone?, seldom: Sexual problems? and sometimes: Falling or dizzy when standing up, Trouble eating well? and Tiredness or fatigue? Have you fallen 2 or more times in the past year?: No Are you afraid of falling?: No Are you a smoker?: no During the past 4 weeks, how many drinks of wine, beer, or other alcoholic beverages did you have?: 1 drink or less per week Do you exercise for about 20 minutes 3 or more times a week?: yes, all the time Have you been given information to help with the following?: no: Hazards in your house that might hurt you? and no: Keeping track of your medications? How often do you have trouble taking medicines the way you have been told to take them?: I always take medicine as prescribed How confident are you that you can control & manage most of your health proble ms?: somewhat confident What is your race?: White PHQ-9 Over the last 2 weeks, how often have you been bothered by any of the following problems? 1. Little interest or pleasure in doing things: more than half the days 2. Feeling down, depressed, or hopeless: more than half the days 3. Trouble falling or staying asleep, or sleeping too much: more than half the days 4. Feeling tired or having little energy: more than half the days 5. Poor appetite or overeating: more than half the days 6. Feeling bad about yourself - or that you are a failure or have let yourself or your family down: more than half the days 7. Trouble concentrating on things, such as reading the newspaper or watching television: not at all 8. Moving or speaking so slowly that other people could have noticed. Or the opposite - being so fidgety or restless that you have been moving around a lot more than usual: not at all 9. Thoughts that you would be better off or of hurting yourself in some way: not at all Total score: 12 39914 - PHQ-9 Billing: Yes Source: Developed by Drs. Steven Omer, Lavonne Mattson, Dom Aguilar and colleagues, with an educational cat from [employer]. Physical Exam Vital Signs: Last Vital Signs Pulse 63 06/09/23 10:51 BP 140/80 H 06/09/23 10:51 Pulse Ox 95 06/09/23 10:51 Oxygen Delivery Method Room Air 06/09/23 10:51 BMI result Body Mass Index 24.6 Const General: cooperative and no acute distress Orientation/consciousness: patient oriented x3 HEENT Ears: other (whisper test: pass) Neuro General: patient oriented x3 Gait exam (Neuro): Normal gait present Coordination: tandem gait normal and Romberg test negative Assessment & Plan Assessment & Plan (1) Hypercholesterolemia: Code(s): E78.00 - Pure hypercholesterolemia, unspecified Plan: Continue on atorvastatin 80 mg daily. Follow low-cholesterol diet and exercise (2) Hypertension: Code(s): I10 - Essential (primary) hypertension Qualifiers: Hypertension type: essential hypertension Qualified Code(s): I10 - Essential (primary) hypertension Plan: Continue on spironolactone-hydrochlorothiazide. Blood pressure goal less than 140/90. Follow low-salt diet and exercise. (3) Medicare annual wellness visit, subsequent: Code(s): Z00.00 - Encounter for general adult medical examination without abnormal findings Plan: Follow-up in 1 year for subsequent annual wellness visit. Patient declined flu shot (4) Hypercalcemia: Code(s): E83.52 - Hypercalcemia Plan: Repeat calcium, ionized calcium and PTH ordered to further evaluate. (5) Elevated LFTs: Code(s): R79.89 - Other specified abnormal findings of blood chemistry Plan: Repeat LFTs and hepatitis panel ordered. Plan Follow-up in 6 months with PCP or sooner if needed. Orders: Orders Comprehensive Met. Panel Today R79.89 - Other specified abnormal findings of blood chemistry Hepatitis A,B,C Profile Today R79.89 - Other specified abnormal findings of blood chemistry Calcium, Ionized Today E83.52 - Hypercalcemia Parathyroid Hormone Intact Today E83.52 - Hypercalcemia Referrals Gastroenterology Referral Z12.11 - Encounter for screening for malignant neoplasm of colon Quality Reporting (2019) Depression/Bipolar (159/160/161/177) PHQ-9: Total score: 12 Coding Level of Care Code Medicare Subsequent (G0439) Diagnoses Hypercholesterolemia E78.00 Essential hypertension I10 Hypertension type: essential hypertension Medicare annual wellness visit, subsequent Z00.00 Hypercalcemia E83.52 Elevated LFTs R79.89 CPT Codes Advance Care Planning - Time spent: 1-15 minutes, not on file ([id number]) Advance Care Planning Date of discussion: 06/09/23 Who was present: patient Forms completed: Health Care Proxy and MOLST Time spent: 1-15 minutes, not on file Actual minutes spent: 2
== END 2023-06-09 11:26 | disposition home or self-care (01) ==
PROVIDERS: Visit Provider Nurse Practitioner Family
DX: E78.00 Pure hypercholesterolemia, unspecified (principal); I10 Essential (primary) hypertension; Z00.00 Encounter for general adult medical examination without abnormal findings; E83.52 Hypercalcemia; R79.89 Other specified abnormal findings of blood chemistry
CPT/HCPCS: 1124F; G0439

== ENCOUNTER 2023-06-27 13:37 | Outpatient (AMB) | payer MEDICARE, SELFPAY ==
[2023-06-27 13:40] VITALS: BP 140/80; PULSE 81; BMI 24.8
--- NOTE | 2023-06-27 13:40 | MHC.OFFVIS ---
Intake Vital Signs 06/27/23 13:40 Height 5 ft 7.5 in Weight 160 lb 14.999 oz BMI 24.8 BP 140/80 H Blood Pressure Location Lt brachial Position Sitting Pulse 81 Intake Visit Reasons: 3 month follow up Intake Note: 3 month follow up Service Order Clerk Required: No Accompanied by: Self / Same As Patient Allergies sulfur Allergy (Unknown, Verified 06/27/23 13:43) hives Medication List - Last Reconciled 06/27/23 by Los Strickland MD albuterol sulfate 90 mcg/actuation (Ventolin HFA) 2 puffs inhalation Q4-6H PRN amlodipine 10 mg PO DAILY 90 days atorvastatin 80 mg PO DAILY biotin 10,000 mcg PO DAILY cholecalciferol (vitamin D3) 25 mcg PO DAILY cyanocobalamin (vitamin B-12) 1,000 mcg PO DAILY oxybutynin chloride ER 10 mg PO DAILY 90 days spironolacton-hydrochlorothiaz 25-25 mg 1 tab PO DAILY vitamin B comp and C no.3 (B Complex Plus Vitamin C) 1 cap PO DAILY HPI HPI Comments History of Present Illness Details Nikunj returns for follow-up. She was seen in consultation regarding shortness of breath and chest discomfort. Per patient, she still feels short of breath with any kind of activity. She underwent extensive workup including cardiac catheterization but no significant findings. Denies any history of prior smoking. Now she has known drug if it is all just psychological as opposed to being something true. [facility] Medical History (Updated 06/27/23 @ 14:45 by Los Strickland MD) Hypercalcemia Atrial arrhythmia Shortness of breath on exertion Chest pain Vitamin B12 deficiency Impacted cerumen of right ear TSH elevation CVA (cerebral vascular accident) Anemia Left renal mass Osteoporosis Hypertension Hypercholesterolemia Surgical History History of cardiac cath History of ankle surgery History of bunionectomy History of breast implant History of tubal ligation Family History Father Colon cancer Mother CHF (congestive heart failure) Daughter In good health Son In good health Sister In good health Sister In good health Sister In good health Brother In good health Social History Housing: House Alcohol intake: current Alcohol intake frequency: a few times a month Patient Tobacco Use Status: Never used Tobacco e-Cigarette/Vaping Use: Never Used Second Hand Smoke Exposure: No Current occupational status: retired Cognitive needs: No Hearing needs: Yes Vision needs: Yes Review of Systems Const Denies weakness ENT Denies dizziness Card Denies chest pain, Denies chest pain with activity, Denies syncope, Denies rapid heart rate, Denies pedal edema, Denies edema, Denies leg edema, Denies lightheadedness, Denies palpitations, Reports dyspnea and Reports dyspnea on exertion Resp Denies cough, Reports dyspnea and Reports dyspnea on exertion GI Denies hematochezia and Denies change in stool character Musc Denies abnormal gait, Denies muscle cramps, Denies muscle weakness, Denies numbness, Denies radiating pain into limb and Denies tingling Neuro Denies abnormal gait, Denies dizziness, Denies syncope, Denies numbness, Denies tingling and Denies weakness Endo Denies palpitations Physical Exam Vital Signs: Last Vital Signs Pulse 81 06/27/23 13:40 BP 140/80 H 06/27/23 13:40 BMI result Body Mass Index 24.8 Const General: comfortable and no acute distress Orientation/consciousness: patient oriented x3 HEENT Other: Unremarkable Head: Yes normal to inspection Neck Neck: Yes normal visual inspection Chest Chest palpation & inspection: normal inspection of the chest Resp Auscultation: clear to auscultation bilaterally Cardio Palpation: normal PMI Heart sounds: S1 normal heart sound present, S2 normal heart sound present, no gallops, no murmurs and no rubs GI Palpation (GI): Soft to palpation Back/Spine/Pelvis Other: unremarkable Skin General skin exam: no rashes or lesions noted Neuro General: patient oriented x3 Extrem General: Yes normal to inspection Psych Mental Status: mental status grossly normal Assessment & Plan Assessment & Plan (1) Shortness of breath on exertion: Code(s): R06.02 - Shortness of breath (2) Essential hypertension: Code(s): I10 - Essential (primary) hypertension (3) Ascending aorta dilatation: Code(s): I77.810 - Thoracic aortic ectasia Plan Pertinent data reviewed. Echocardiogram with LVEF 65-70%, no significant valvular pathology, otherwise unremarkable. Mild diastolic dysfunction with normal filling pressures. Strain was also unremarkable. Myocardial perfusion imaging study without any definitive evidence of ischemia or infarction. In pulmonary function testing, described to have decreased diffusion capacity suggesting pulmonary edema. However, no obstructive or restrictive defects. In the cardiac catheterization, proximal circumflex/1st marginal 40% stenosis. Otherwise unremarkable. Normal left and right-sided filling pressures. Then she had an exercise stress echocardiogram where she reached 6.9 METS and had shortness of breath but there was no evidence of exercise induced diastolic dysfunction or pulmonary hypertension on the echocardiogram. In the chest CT scan chest, no findings to explain the shortness of breath. 2 small nodules and she was recommended PCP follow-up for any additional CTs in the future. Discussed today. Overall, no clear cardiac etiology to explain her shortness of breath. As she has had extensive workup as above, do not recommend anything more at this time. Blood pressure is borderline. She is on amlodipine/spironolactone-hydrochlorothiazide. In the chest CT scan, ascending aortic size described to be at 3.9 cm. We can recheck that in the future. Otherwise, mainly reassurance. Total time spent including review of data, counseling, documentation, coordination of care-32 minutes. Orders: Orders CA echo transthoracic complete 51 Weeks I77.810 - Thoracic aortic ectasia Coding Level of Care Code Est Pt Level 4 (27944) Diagnoses Shortness of breath on exertion R06.02 Essential hypertension I10 Ascending aorta dilatation I77.810
== END 2023-06-27 14:05 | disposition home or self-care (01) ==
PROVIDERS: PCP Internal Medicine; Visit Provider Internal Medicine
DX: R06.02 Shortness of breath (principal); I10 Essential (primary) hypertension; I77.810 Thoracic aortic ectasia
CPT/HCPCS: 99214

== ENCOUNTER → 2023-06-27 13:37 | Outpatient (BNVA) | payer MEDICARE, SELFPAY | PROVIDERS: PCP Internal Medicine; Visit Provider Internal Medicine | DX: R06.02 Shortness of breath (principal); I77.810 Thoracic aortic ectasia; I10 Essential (primary) hypertension | CPT/HCPCS: 99212 ==

== ENCOUNTER 2023-07-18 07:27 | Outpatient (AMB) | payer MEDICARE, SELFPAY ==
--- NOTE | 2023-07-18 07:33 | MHC.OFFVIS ---
Intake Vital Signs 07/18/23 07:38 Height 5 ft 7.5 in BP 163/71 H Blood Pressure Location Lt brachial Position Sitting Pulse 84 Intake Visit Reasons: Colonoscopy Screening Intake Note: Nikunj presents in the office as a colonoscopy screening. CC: She states that she is not having any concerns - she states she has a every 5 year colo. Litigation Docket Manager Required: No Allergies sulfur Allergy (Unknown, Verified 07/18/23 07:36) hives Medication List - Last Reconciled 07/18/23 by Danielle Foster PA-C albuterol sulfate 90 mcg/actuation (Ventolin HFA) 2 puffs inhalation Q4-6H PRN amlodipine 10 mg PO DAILY 90 days atorvastatin 80 mg PO DAILY biotin 10,000 mcg PO DAILY cholecalciferol (vitamin D3) 25 mcg PO DAILY cyanocobalamin (vitamin B-12) 1,000 mcg PO DAILY oxybutynin chloride ER 10 mg PO DAILY 90 days spironolacton-hydrochlorothiaz 25-25 mg 1 tab PO DAILY vitamin B comp and C no.3 (B Complex Plus Vitamin C) 1 cap PO DAILY HPI HPI Comments History of Present Illness Details A 75 y/o family hx colon cancer-she has never had polyps- Bowels good Appetite good dad at 72CRC Monitors BP at home-was better No HOLLIDAY, dizziness, cough or CP. No N/V/D, abdominal pain, fever or chills PFSH Medical History (Updated 07/18/23 @ 08:04 by Danielle Foster PA-C) Hypercalcemia Atrial arrhythmia Shortness of breath on exertion Chest pain Vitamin B12 deficiency Impacted cerumen of right ear TSH elevation CVA (cerebral vascular accident) Anemia Left renal mass Osteoporosis Hypertension Hypercholesterolemia Surgical History Hx of colonoscopy History of cardiac cath History of ankle surgery History of bunionectomy History of breast implant History of tubal ligation Family History Father Colon cancer Mother CHF (congestive heart failure) Daughter In good health Son In good health Sister In good health Sister In good health Sister In good health Brother In good health Social History Housing: House Alcohol intake: current Alcohol intake frequency: a few times a month Patient Tobacco Use Status: Never used Tobacco e-Cigarette/Vaping Use: Never Used Second Hand Smoke Exposure: No Current occupational status: retired Cognitive needs: No Hearing needs: Yes Vision needs: Yes Review of Systems Const All systems reviewed & are unremarkable except as noted in HPI and below Card Denies chest pain and Reports dyspnea on exertion Resp Reports dyspnea on exertion GI Denies abdominal pain, Denies hematochezia, Denies heartburn, Denies nausea and Denies vomiting Physical Exam Vital Signs: Last Vital Signs Pulse 84 07/18/23 07:38 BP 163/71 H 07/18/23 07:38 Const General: cooperative, healthy appearing, comfortable, no acute distress and well developed Orientation/consciousness: patient oriented x3 Limitations: no limitations HEENT Ears: hearing grossly abnormal bilaterally Resp Effort & Inspection: normal respiratory effort and able to speak in complete sentences Auscultation: clear to auscultation bilaterally, no rales, no rhonchi and no wheezes Cardio Rate: regular rate Rhythm: regular rhythm Heart sounds: S1 normal heart sound present and S2 normal heart sound present GI Palpation (GI): Soft to palpation and nontender Auscultation: normal bowel sounds Skin General skin exam: no rashes or lesions noted Neuro General: patient oriented x3 Extrem General: Yes full ROM Psych Appearance: grossly normal and well kempt Mental Status: mental status grossly normal Speech and movement: Normal speech and movement present and Clear speech present Affect: normal affect Attitude: cooperative Thought process: Normal thought process present Thought content: Normal thought content present Assessment & Plan Assessment & Plan (1) Family history of colon cancer in father: Comment: discussed 5 year plan- likely if no polyps- may not need to repeat in 5 years Discussed procedure, rare risks, need for escort prep Code(s): Z80.0 - Family history of malignant neoplasm of digestive organs Plan: colonoscopy Plan colonoscopy MG prep Orders: Orders Colonoscopy - GI Use Only Today Z12.11 - Encounter for screening for malignant neoplasm of colon, Z80.0 - Family history of malignant neoplasm of digestive organs Medications: New bisacodyl (Dulcolax (bisacodyl)) Day before procedure, prep day Take 4 tablets by mouth upon awakening followed by large glass of water 20 mg (4 x 5 mg) PO ONCE 4 tabs 0RF colonoscopy prep 1 day Z12.11 - Encounter for screening for malignant neoplasm of colon polyethylene glycol 3350 (Miralax) Take as directed by mouth the day before your procedure. 238 grams PO ONCE PRN 238 grams 0RF laxative effect 1 day Patient Instructions: colonoscopy MG prep, reviewed, lit given Call with questions or concerns Coding Level of Care Code New Pt Level 3 (44945) Diagnoses Family history of colon cancer in father Z80.0 Time Spent (min) 30
[2023-07-18 07:38] VITALS: BP 163/71; PULSE 84
== END 2023-07-18 08:05 | disposition home or self-care (01) ==
PROVIDERS: PCP Internal Medicine; Visit Provider Physician Assistant
DX: Z80.0 Family history of malignant neoplasm of digestive organs (principal)
CPT/HCPCS: 99203

== ENCOUNTER → 2023-07-18 07:27 | Outpatient (BNVA) | payer MEDICARE, SELFPAY | PROVIDERS: PCP Internal Medicine; Visit Provider Physician Assistant | DX: Z01.818 Encounter for other preprocedural examination (principal); Z80.0 Family history of malignant neoplasm of digestive organs | CPT/HCPCS: 99202 ==

== ENCOUNTER 2023-11-14 08:55 | Day surgery (SDC) | payer MEDICARE, SELFPAY ==
[2023-11-13 06:58] VITALS: BMI 25.1
--- NOTE | 2023-11-13 13:06 | HO.ANESPROP2 ---
Documented by User: Maura Sykes NP 11/13/23 13:15 HPI - Anesthesia Eval Consult details Narrative: 78yo F for Colonoscopy 2022 cardiac w/u for CABA, non cardiac etiology per 06/2023 office visit note PMFSH Active Problems Active Problems: All Active Problems Family history of colon cancer in father (Acute) Ascending aorta enlargement (Acute) Ascending aorta dilatation (Acute) Elevated LFTs (Acute) Hypercalcemia (Acute) Lower urinary tract symptoms (Acute) Urinary frequency (Acute) Nocturia (Acute) Urinary urgency (Acute) Diastolic dysfunction (Acute) Essential hypertension (Acute) Colon cancer screening (Acute) Peripheral vascular disease (Acute) Coronary artery arteriosclerosis (Acute) History of cardiac cath (Acute) Impaired fasting blood sugar (Acute) Vitamin B12 deficiency (Acute) Mammogram declined (Acute) Osteoporosis (Acute) Hypertension (Acute) Hypercholesterolemia (Acute) Overactive bladder (Acute) Complex renal cyst (Acute) Past Medical History Medical History (Updated 07/18/23 @ 08:04 by Danielle Foster PA-C) Hypercalcemia Atrial arrhythmia Shortness of breath on exertion Chest pain Vitamin B12 deficiency Impacted cerumen of right ear TSH elevation CVA (cerebral vascular accident) Anemia Left renal mass Osteoporosis Hypertension Hypercholesterolemia Family History Family History Father Colon cancer Mother CHF (congestive heart failure) Daughter In good health Son In good health Sister In good health Sister In good health Sister In good health Brother In good health Surgical History Surgical History Hx of colonoscopy History of cardiac cath History of ankle surgery History of bunionectomy History of breast implant History of tubal ligation Social History Social History Housing: House Alcohol intake: current Alcohol intake frequency: a few times a month Patient Tobacco Use Status: Never used Tobacco e-Cigarette/Vaping Use: Never Used Second Hand Smoke Exposure: No Advance Directives: No Advance Directives Information Provided: Yes Current occupational status: retired Cognitive needs: No Hearing needs: Yes Vision needs: Yes Meds Allergies Allergy/AdvReac Type Severity Reaction Status Date / Time sulfur Allergy Unknown hives Verified 07/18/23 07:36 Home Medications ?Medication ?Instructions ?Recorded ?Confirmed ?Last Taken ?Type biotin 5,000 mcg disintegrating 10,000 mcg PO DAILY 09/07/20 11/14/23 Unknown History tablet cholecalciferol (vitamin D3) 25 25 mcg PO DAILY 09/07/20 11/14/23 Unknown History mcg (1,000 unit) capsule Exam Height,Weight and Vital Signs: Height 5 ft 7 in Weight 72.575 kg Narrative Narrative: Per 06/2023 cardiac office visit: Echocardiogram with LVEF 65-70%, no significant valvular pathology, otherwise unremarkable. Mild diastolic dysfunction with normal filling pressures. Strain was also unremarkable. Myocardial perfusion imaging study without any definitive evidence of ischemia or infarction. In pulmonary function testing, described to have decreased diffusion capacity suggesting pulmonary edema. However, no obstructive or restrictive defects. In the cardiac catheterization, proximal circumflex/1st marginal 40% stenosis. Otherwise unremarkable. Normal left and right-sided filling pressures. Then she had an exercise stress echocardiogram where she reached 6.9 METS and had shortness of breath but there was no evidence of exercise induced diastolic dysfunction or pulmonary hypertension on the echocardiogram. Assessment and Plan Assessment Anesthesia Assessment: Chart Reviewed Documented by User: Stanford Magallanes MD 11/14/23 10:48 REPLACED BY [facility] Past Medical History Medical History (Updated 07/18/23 @ 08:04 by Danielle Foster PA-C) Hypercalcemia Atrial arrhythmia Shortness of breath on exertion Chest pain Vitamin B12 deficiency Impacted cerumen of right ear TSH elevation CVA (cerebral vascular accident) Anemia Left renal mass Osteoporosis Hypertension Hypercholesterolemia Family History Family History Father Colon cancer Mother CHF (congestive heart failure) Daughter In good health Son In good health Sister In good health Sister In good health Sister In good health Brother In good health Family history of problems with anesthesia: No Surgical History Surgical History Hx of colonoscopy History of cardiac cath History of ankle surgery History of bunionectomy History of breast implant History of tubal ligation History of Problems with Anesthesia: No Social History Social History Housing: House Alcohol intake: current Alcohol intake frequency: a few times a month Patient Tobacco Use Status: Never used Tobacco e-Cigarette/Vaping Use: Never Used Second Hand Smoke Exposure: No Advance Directives: No Advance Directives Information Provided: Yes Current occupational status: retired Cognitive needs: No Hearing needs: Yes Vision needs: Yes Meds Allergies Allergy/AdvReac Type Severity Reaction Status Date / Time sulfur Allergy Unknown hives Verified 07/18/23 07:36 Home Medications ?Medication ?Instructions ?Recorded ?Confirmed ?Last Taken ?Type biotin 5,000 mcg disintegrating 10,000 mcg PO DAILY 09/07/20 11/14/23 Unknown History tablet cholecalciferol (vitamin D3) 25 25 mcg PO DAILY 09/07/20 11/14/23 Unknown History mcg (1,000 unit) capsule Exam Airway Mallampati Class: II TM Dist: >3cm Neck ROM: Full Partial: Upper and Lower Loose/Missing/Broken Teeth: No Heart: rrr Lungs: cta Assessment and Plan Assessment Anesthesia Assessment: Anesthesia Plan Discussed Final Anesthetic Review Family History of Problems with Anesthesia: No History of Problems with Anesthesia: No NPO: Yes ASA Class: II Final Preanesthetic Review: No Changes in Pt Med Stat, Meds/Allgs Chart Reviewed, Consent Obtained/Reviewed and Anes Risks/Benef Reviewed Patient Risk: Intermediate Procedure Risk: Intermediate Anesthetic Plan Anesthetic Plan: MAC: Disposition: Standard PACU
--- NOTE | 2023-11-14 10:36 | MHC.SHP ---
Pre-Procedural Eval Section A - 24 Hr Update-Section A only Date of Service: 11/14/23 Section B - Complete if H&P > 30 days Chief Complaint: screening Details of Present Illness: crc in parent Relevant Family History (Specify if Yes): Yes Relevant Social History: None Present Medications: see Short Stay Collaborative assessment Medical History: Significant History (Hypercalcemia Atrial arrhythmia Shortness of breath on exertion Chest pain Vitamin B12 deficiency Impacted cerumen of right ear TSH elevation CVA (cerebral vascular accident) Anemia Left renal mass Osteoporosis Hypertension Hypercholesterolemia) History of Previous Operations: Relevant previous surgery/procedure and date(s) (Hx of colonoscopy History of cardiac cath History of ankle surgery History of bunionectomy History of breast implant History of tubal ligation) Allergies: Allergies Allergy/AdvReac Type Severity Reaction Status Date / Time sulfur Allergy Unknown hives Verified 07/18/23 07:36 Review of Systems Sugical H&P ROS: Negative: Constitution, Cardiovascular, Respiratory, Neurological, Psychiatric, Hem-Onc, Allergic/Immunologic, Gastrointestinal, Genitourinary, Musculoskeletal, Integumentary, Endocrine and Eyes/Ears/Nose/Throat Exam Surgical H&P Exam: Normal: HEENT, Normal: Heart, Normal: Lungs, Normal: Extremities, Normal: Abdomen, Normal: Skin and Normal: Neurological Plan Diagnosis/Plan: Unchanged I have reviewed the history and physical and performed a pertinent physical examination on my patient. No changes have occurred unless specified. Time Spent With Patient Time: Total time managing care of this patient today ____ minutes.
[2023-11-14 10:44] VITALS: BP 157/79; PULSE 84; RESP 18; TEMP 36.7; O2SAT 99; BMI 24.6
[2023-11-14] MEDS: Lactated Ringers 1,000 ML 100 ML IVCONT (11:11)
--- NOTE | 2023-11-14 11:22 | HO.OPN-COLON ---
Colonoscopy Operative Note Operative Note Date of Service: 11/14/23 Narrative: Operative Information Procedure Description: Colonoscopy Indication: screening, FH of CRC Anesthesia: MAC COLONOSCOPY Instrument: Olympus variable stiffness pediatric scope 190L Colonoscopy Monitoring: Vital signs and clinical assessment, continuous EKG monitoring, Pulse oximetry, Carbon Dioxide monitoring and blood pressure monitoring were done throughout the procedure. Colon withdrawal time was 6 minutes. Procedure: The patient was placed in the left lateral decubitis position and pre-procedure medications were administered. After a digital rectal examination of the ano-rectum, the video colonoscope was inserted into the rectum and advanced through the colon to the cecum/TI. The colonoscope was slowly withdrawn in a retrograde panoramic fashion and the colon mucosa was carefully examined including a retroflexed view of the rectum. Findings and interventions are described below. Procedure Difficulty: easy Findings: Terminal Ileum-normal Cecum:normal Right sided retroflexion- normal Ascending Colon: normal Transverse Colon -normal Descending Colon:normal Sigmoid Colon: moderate diverticulosis Rectum: Retroflexion with small internal hemorrhoids seen, grade I Anorectum - normal Intervention: none Colon preparation: [place] Bowel Preparation Scale Right colon; 1-2 Transverse colon: 2 Left colon; 2 (0 = Unprepared colon segment with mucosa not seen due to solid stool that cannot be cleared. 1 = Portion of mucosa of the colon segment seen, but other areas of the colon segment not well seen due to staining, residual stool and/or opaque liquid. 2 = Minor amount of residual staining, small fragments of stool and/or opaque liquid, but mucosa of colon segment seen well. 3 = Entire mucosa of colon segment seen well with no residual staining, small fragments of stool or opaque liquid) Impression and Post Procedure Diagnosis: diverticulosis internal hemorrhoids Plan: High fiber diet leaflet Avoid straining at stool, epsom salts and sitz bath, anusol supps or cream Repeat Colonoscopy in 5 years due to FH and fair prep on right if health allows or earlier if clinically indicated Above findings were reviewed with the patient and relevant handouts were provided if indicated.
[2023-11-14 11:57] VITALS: BP 99/50; PULSE 64; RESP 16; TEMP 36.1; O2SAT 97
[2023-11-14 12:17] VITALS: BP 128/71; PULSE 60; RESP 18; TEMP 36.3; O2SAT 100
== END 2023-11-14 13:00 | disposition home or self-care (01) ==
PROVIDERS: PCP Internal Medicine; Visit Provider Internal Medicine Gastroenterology
PROC: 0DJD8ZZ Inspection of Lower Intestinal Tract, Via Natural or Artificial Opening Endoscopic (ICD-10-PCS; CPT 45378; principal; 2023-11-14 12:40)
DX: Z12.11 Encounter for screening for malignant neoplasm of colon (principal); K57.30 Diverticulosis of large intestine without perforation or abscess without bleeding; K64.0 First degree hemorrhoids; Z80.0 Family history of malignant neoplasm of digestive organs; I10 Essential (primary) hypertension; Z86.73 Personal history of transient ischemic attack (TIA), and cerebral infarction without residual deficits; Z88.2 Allergy status to sulfonamides
CPT/HCPCS: G0105; J2704

== ENCOUNTER → 2023-11-14 08:55 | Outpatient (BNV) | payer MEDICARE, SELFPAY | PROVIDERS: PCP Internal Medicine; Visit Provider Internal Medicine Gastroenterology | DX: Z12.11 Encounter for screening for malignant neoplasm of colon (principal); Z80.0 Family history of malignant neoplasm of digestive organs; K57.30 Diverticulosis of large intestine without perforation or abscess without bleeding; K64.0 First degree hemorrhoids | CPT/HCPCS: G0105 ==

== ENCOUNTER 2023-11-16 08:59 | Outpatient (AMB) | payer MEDICARE, SELFPAY ==
[2023-11-16 09:03] VITALS: BP 122/70; PULSE 65; TEMP 36.3; O2SAT 99; BMI 24.0
--- NOTE | 2023-11-16 09:03 | AM.OFFWIN_ITS ---
Intake Vital Signs 11/16/23 09:03 Height 5 ft 7 in Weight 153 lb BMI 24.0 BP 122/70 Blood Pressure Location Lt brachial Position Sitting Pulse 65 Pulse Source Pulse Oximeter Temp 97.3 F Temp Source Temporal Artery Scan Pulse Oximetry (%) 99 Oxygen Delivery Method Room Air Intake Visit Reasons: EST/poison sumac on face(lobby) Intake Note: pt is here today for poison sumac on face started 1 week ago Patient Tobacco Use Status: Never used Tobacco Allergies sulfur Allergy (Unknown, Verified 11/16/23 09:18) hives Do you need a note to return to daycare/school/sports/work: No HPI HPI Comments History of Present Illness Details 78 y/o female patient who presents to [facility] with c/o Rash on her face for 1 week. Reports that rash is very itchy, red and swelling. Denies SOB, CP or tightness. She was working on her Garden and she accidentally touched her face with Gardening gloves. [facility] Medical History (Updated 07/18/23 @ 08:04 by Danielle Foster PA-C) Hypercalcemia Atrial arrhythmia Shortness of breath on exertion Chest pain Vitamin B12 deficiency Impacted cerumen of right ear TSH elevation CVA (cerebral vascular accident) Anemia Left renal mass Osteoporosis Hypertension Hypercholesterolemia Surgical History Hx of colonoscopy History of cardiac cath History of ankle surgery History of bunionectomy History of breast implant History of tubal ligation Family History Father Colon cancer Mother CHF (congestive heart failure) Daughter In good health Son In good health Sister In good health Sister In good health Sister In good health Brother In good health Social History Housing: House Alcohol intake: current Alcohol intake frequency: a few times a month Patient Tobacco Use Status: Never used Tobacco e-Cigarette/Vaping Use: Never Used Second Hand Smoke Exposure: No Current occupational status: retired Cognitive needs: No Hearing needs: Yes Vision needs: Yes Review of Systems Const All systems reviewed & are unremarkable except as noted in HPI and below Physical Exam Vital Signs: Last Vital Signs Temp 97.3 F 11/16/23 09:03 Pulse 65 11/16/23 09:03 BP 122/70 11/16/23 09:03 Pulse Ox 99 11/16/23 09:03 Oxygen Delivery Method Room Air 11/16/23 09:03 BMI result Body Mass Index 24.0 Const General: comfortable and no acute distress Orientation/consciousness: patient oriented x3 HEENT Head: Yes normocephalic General nose exam: Normal external nose present Face and sinus: Yes erythema and Yes edema (mild swelling cheeks, no tongue swelling or lips) Resp Effort & Inspection: normal respiratory effort Auscultation: clear to auscultation bilaterally Neuro General: patient oriented x3, gait normal and moves all extremities Psych Speech and movement: Normal speech and movement present Assessment & Plan Assessment & Plan (1) Rash: Code(s): R21 - Rash and other nonspecific skin eruption Plan: - Apply a thin layer to the face and neck x 7 days - Take medications as directed. - RTC if not better. Medications: New prednisone 50 mg PO DAILY 5 tabs 0RF Rash 5 days R21 - Rash and other nonspecific skin eruption triamcinolone acetonide 0.1% 1 appl topical BID 15 grams 0RF Itching R21 - Rash and other nonspecific skin eruption hydroxyzine HCl 25 mg PO BID PRN 20 tabs 0RF itching R21 - Rash and other nons pecific skin eruption Coding Level of Care Code Est Pt Level 3 (18616) Diagnoses Rash R21 Time Spent (min) 15
== END 2023-11-16 10:21 | disposition home or self-care (01) ==
PROVIDERS: PCP Internal Medicine; Visit Provider Nurse Practitioner Family
DX: R21 Rash and other nonspecific skin eruption (principal)
CPT/HCPCS: 99213

== ENCOUNTER 2024-04-22 10:21 | Outpatient (REF) | payer MEDICARE, SELFPAY ==
--- NOTE | ~2024-04-22 | US_ITS ---
EXAMINATION: US RETROPERITONEAL COMPLETE (RENAL) CLINICAL INFORMATION: Cyst of kidney, acquired. COMPARISON: Renal ultrasound 04/11/2023 and 04/07/2022. Correlated to CT abdomen and pelvis 11/15/2019. TECHNIQUE: Real-time imaging of the kidneys and bladder using grayscale and color Doppler technique. FINDINGS: RIGHT KIDNEY: 7 x 3 x 5 cm (SAG x AP x TRV). Volume is 54 cc. Small. No hydronephrosis. No solid or cystic lesion. The LEFT KIDNEY: 13 x 6 x 6 cm (SAG x AP x TRV). Volume is 235 cc. There is an exophytic 5 cm septated anechoic lesion in the upper pole without flow on color Doppler interrogation. 2.1 cm septated anechoic lesion in the corticomedullary junction in the midportion without flow on color Doppler interrogation. No hydronephrosis. BLADDER: Fluid-filled. Bilateral ureteral jets are demonstrated. Prevoid bladder volume is 364 mL. Postvoid bladder volume is 112 mL. . US/US retroperitoneal comp IMPRESSION: Complex septated cystic lesions in the left kidney the largest in the upper pole. Recommend IV contrast enhanced CT versus MRI renal mass protocol. No hydronephrosis. 112 urinary retention.. Electronically signed by: Isaias Parra MD 05/09/2024 01:42 PM BRITTANI
== END 2024-04-22 10:22 | disposition home or self-care (01) ==
LOC: HO.US 10:21
PROVIDERS: PCP Internal Medicine; Visit Provider Nurse Practitioner Family
DX: N28.1 Cyst of kidney, acquired (principal)
CPT/HCPCS: 76770

== ENCOUNTER → 2024-04-22 10:23 | Outpatient (BNV) | payer MEDICARE, SELFPAY | PROVIDERS: PCP Internal Medicine; Visit Provider Radiology Diagnostic Radiology | DX: N28.1 Cyst of kidney, acquired (principal) | CPT/HCPCS: 76770 ==

== ENCOUNTER 2024-04-29 15:20 | Outpatient (AMB) | payer MEDICARE, SELFPAY ==
[2024-04-29 15:24] VITALS: BP 130/64; PULSE 81; O2SAT 97; BMI 22.6
--- NOTE | 2024-04-29 15:24 | A.OFFPC_ITS ---
Vital Signs 04/29/24 15:24 Height 5 ft 7 in Weight 144 lb BMI 22.6 BP 130/64 Blood Pressure Location Lt brachial Position Sitting Pulse 81 Pulse Source Pulse Oximeter Pulse Oximetry (%) 97 Oxygen Delivery Method Room Air Intake Visit Reasons: 6 Month Follow Up Dynamite Shooter Required: No Allergies sulfur Allergy (Unknown, Verified 04/29/24 15:24) hives Tobacco use date assessed: 04/29/24 Fall risk assessment: No Falls in past year Last assessed Fall Risk: 04/29/24 Dental Screening Dental Screen Date: 04/29/24 HPI 6 Month Follow Up HPI Details 78-year-old female(noted 9 lb weight los s) with hypertension hypercholesterolemia coming in for follow-up. Last seen in June for wellness exam. Patient had bone density done in 05/22/2022 for osteoporosis, up-to-date with colonoscopy november 2023 declined mammogram. Patient was seen in the Urgent Center in November 2023 for allergic contact dermatitis was given prednisone hydroxyzine and triamcinolone. Colonoscopy done in October showing only internal hemorrhoids and diverticulosis. Five years due to family history . Patient also has seen Cardiology June due to shortness of breath and chest pain. Echocardiogram normal with mild diastolic dysfunction. Perfusion imaging negative PFT suggesting pulmonary edema however no obstructive or restrictive. Cardiac catheterization no exercise of exercise-induced diastolic dysfunction. Two small nodules and was advised follow-up CT no clear cardiac etiology. eating better and exercising. [facility] Medical History (Updated 04/29/24 @ 15:50 by Murray Wallace MD) Hypertension Hypercalcemia Atrial arrhythmia Shortness of breath on exertion Chest pain Vitamin B12 deficiency Impacted cerumen of right ear TSH elevation CVA (cerebral vascular accident) Anemia Left renal mass Osteoporosis Hypercholesterolemia Surgical History Hx of colonoscopy History of cardiac cath History of ankle surgery History of bunionectomy History of breast implant History of tubal ligation Family History Father Colon cancer Mother CHF (congestive heart failure) Daughter In good health Son In good health Sister In good health Sister In good health Sister In good health Brother In good health Social History Housing: House Alcohol intake: current Alcohol intake frequency: a few times a month Patient Tobacco Use Status: Never used Tobacco e-Cigarette/Vaping Use: Never Used Second Hand Smoke Exposure: No Current occupational status: retired Cognitive needs: No Hearing needs: Yes Vision needs: Yes Questionnaire PHQ-9 Over the last 2 weeks, how often have you been bothered by any of the following problems? 1. Little interest or pleasure in doing things: more than half the days 2. Feeling down, depressed, or hopeless: more than half the days 3. Trouble falling or staying asleep, or sleeping too much: more than half the days 4. Feeling tired or having little energy: more than half the days 5. Poor appetite or overeating: more than half the days 6. Feeling bad about yourself - or that you are a failure or have let yourself or your family down: more than half the days 7. Trouble concentrating on things, such as reading the newspaper or watching television: not at all 8. Moving or speaking so slowly that other people could have noticed. Or the opposite - being so fidgety or restless that you have been moving around a lot more than usual: not at all 9. Thoughts that you would be better off or of hurting yourself in some way: not at all Total score: 12 41610 - PHQ-9 Billing: Yes Source: Developed by Drs. Steven Omer, Lavonne Mattson, Dom Aguilar and colleagues, with an educational cat from [employer]. Thrive Questionnaire Date Thrive assessed: 07/26/22 AUDIT C Alcohol Use Questionnaire (AUDIT-C) 2. How many drinks containing alcohol do you have on a typical day when you are drinking?: 10 or more 3. How often do you have six or more drinks on one occasion?: Daily or almost daily Total Score: 8 TONY-7 AMB Questionnaire TONY-7 Date TONY - 7 assessed: 04/29/24 Source: Developed by Drs. Steven Omer, Dom Magallon and colleagues, with an educational cat from [employer]. Physical exam (Primary Care) Vital Signs: Last Vital Signs Pulse 81 04/29/24 15:24 BP 130/64 04/29/24 15:24 Pulse Ox 97 04/29/24 15:24 Oxygen Delivery Method Room Air 04/29/24 15:24 BMI result Body Mass Index 22.6 Tobacco/Smoking Status: Tobacco use Status Tobacco use date assessed 04/29/24 04/29/24 15:25 Patient Tobacco Use Status Never used Tobacco 04/29/24 15:25 e-Cigarette/Vaping Use Never Used 04/29/24 15:25 PHQ-9: PHQ-9 Score PHQ-9: Total score 12 04/29/24 15:25 Thrive Assessment: Date of Thrive Assessment Date Thrive assessed 07/26/22 04/29/24 15:25 Const General: alert; No acute distress Eyes Conjunctivae: conjunctivae normal Resp Auscultation: clear to auscultation bilaterally Cardio Rate: regular rate Rhythm: regular rhythm GI Inspection: Yes normal to inspection Extrem General: Yes normal to inspection and No edema Coding Level of Care Code Est Pt Level 4 (91951) Diagnoses Family history of colon cancer in father Z80.0 Hypercholesterolemia E78.00 Essential hypertension I10 Pulmonary nodule R91.1 Assessment & Plan Assessment & Plan (1) Family history of colon cancer in father: Comment: discussed 5 year plan- likely if no polyps- may not need to repeat in 5 years Discussed procedure, rare risks, need for escort prep Code(s): Z80.0 - Family history of malignant neoplasm of digestive organs Category: Medical Plan: Patient was advised repeat CT scan in 5 years (2) Hypercholesterolemia: Code(s): E78.00 - Pure hypercholesterolemia, unspecified Category: Medical Plan: Avoid fried foods, chicken skin, eggs, butter margarine, pastries and meat. Be it pork or beef they have a lot of cholesterol presently on atorvastatin 80 mg once a day LDL goal of less than (3) Essential hypertension: Code(s): I10 - Essential (primary) hypertension Category: Medical Plan: Continue with blood pressure medication. Decrease salt intake and exercise on amlodipine 10 mg once a day (4) Pulmonary nodule: Comment: April 2023Two 6 mm groundglass and part solid nodules as above. Per Fleischner Society Guidelines recommend a non-contrast chest CT at 3-6 months. Subsequent management based on the most suspicious nodule(s). Code(s): R91.1 - Solitary pulmonary nodule Category: Medical Plan: Patient is a nonsmoker. Orders: Orders CT chest wo IV con Today R91.1 - Solitary pulmonary nodule Vitamin B12 and Folate Today E78.00 - Pure hypercholesterolemia, unspecified Complete Blood Count Auto Diff Today E78.00 - Pure hypercholesterolemia, unspecified Comprehensive Met. Panel Today E78.00 - Pure hypercholesterolemia, unspecified Free T4 (Free Thyroxine) Today E78.00 - Pure hypercholesterolemia, unspecified Lipid Panel Today E78.00 - Pure hypercholesterolemia, unspecified Thyroid Stimulating Hormone Today E78.00 - Pure hypercholesterolemia, unspecified Vitamin D 25-OH Total Today E78.00 - Pure hypercholesterolemia, unspecified
== END 2024-04-29 16:14 | disposition home or self-care (01) ==
LOC: HO.HMCH 15:21
PROVIDERS: PCP Internal Medicine; Visit Provider Internal Medicine
DX: Z80.0 Family history of malignant neoplasm of digestive organs (principal); E78.00 Pure hypercholesterolemia, unspecified; I10 Essential (primary) hypertension; R91.1 Solitary pulmonary nodule

== ENCOUNTER → 2024-04-29 15:20 | Outpatient (BNVA) | payer MEDICARE, SELFPAY | PROVIDERS: PCP Internal Medicine; Visit Provider Internal Medicine | DX: R91.1 Solitary pulmonary nodule (principal); E78.00 Pure hypercholesterolemia, unspecified; I10 Essential (primary) hypertension; Z80.0 Family history of malignant neoplasm of digestive organs | CPT/HCPCS: 96127; 99212 ==

== ENCOUNTER 2024-05-01 09:22 | Outpatient (AMB) | payer MEDICARE, SELFPAY ==
--- NOTE | 2024-05-01 09:25 | A.OFFVIS_ITS ---
Intake Visit Reasons: 1y/US(set) Intake Note: Patient presents today for 1 year follow-up with US Results: Meds- Oxybutynin Allergies to Antibiotic- No Known Allergies Blood Thinner- None PVR: 0ml's Patient Symptoms: None Nat Instructor Required: No Accompanied by: Self / Same As Patient Allergies sulfur Allergy (Unknown, Verified 05/01/24 10:43) hives Medication List - Last Reconciled 05/01/24 by ENID Zeng- amlodipine 10 mg PO DAILY 90 days atorvastatin 80 mg PO DAILY oxybutynin chloride ER 10 mg PO DAILY 90 days triamcinolone acetonide 0.1% 1 appl topical BID vitamin B comp and C no.3 (B Complex Plus Vitamin C) 1 cap PO DAILY HPI Comments Details: Danielle is a very pleasant 78-year-old female patient of Dr. Wallace. She has a past medical history of hypercalcemia, atrial arrhythmia, vitamin B12 deficiency, CVA, anemia, osteoporosis, hypertension, hypercholesteremia, and left renal cyst. She presents to the office today for follow-up of her left co mplex renal cyst. In discussion with the patient today she reports to be doing and feeling well. She denies having had any bothersome urinary issues or concerns since her last office visit here approximately 1 year ago. She reports compliance with oxybutynin as prescribed and feels this has been extremely helpful in episodes of urinary urgency and frequency she had been experiencing. In office urinalysis results reviewed with the patient today. PVR 0 mL. Recent renal imaging results reviewed with the patient today. Right kidney with no hydronephrosis or cystic lesion. Left kidney with exophytic 5 cm septated anechoic lesion in the upper pole. 2.1 cm septated anechoic lesion in the midportion of the left kidney. No hydronephrosis. We discussed stability of cystic lesion dating back to 2019. Discussed potential causes for renal cysts. We discussed further intervention with MRI verses CT renal mass protocol versus surveillance monitoring. Risks and benefits of these interventions were discussed. Will continue with surveillance monitoring at this time. We discuss trial of another OAB medication due to BEERS criteria and oxybutynin. Patient otherwise denies hematuria, dysuria, foul smelling urine, changes to urinary stream, flank pain, fever, and or chills. [facility] Medical History Hypertension Hypercalcemia Atrial arrhythmia Shortness of breath on exertion Chest pain Vitamin B12 deficiency Impacted cerumen of right ear TSH elevation CVA (cerebral vascular accident) Anemia Left renal mass Osteoporosis Hypercholesterolemia Surgical History Hx of colonoscopy History of cardiac cath History of ankle surgery History of bunionectomy History of breast implant History of tubal ligation Family History Father Colon cancer Mother CHF (congestive heart failure) Daughter In good health Son In good health Sister In good health Sister In good health Sister In good health Brother In good health Social History Housing: House Alcohol intake: current Alcohol intake frequency: a few times a month Patient Tobacco Use Status: Never used Tobacco e-Cigarette/Vaping Use: Never Used Second Hand Smoke Exposure: No Current occupational status: retired Cognitive needs: No Hearing needs: Yes Vision needs: Yes Review of Systems Const Reports as per HPI Eyes Reports no additional complaints ENT Reports no additional complaints Card Reports as per HPI Resp Reports no additional complaints GI Reports no additional complaints Reports as per HPI Musc Reports as per HPI Neuro Reports as per HPI Psych Reports no additional complaints Endo Reports no additional complaints Malik/Lymph Reports no additional complaints Aller/Immun Reports no additional complaints Physical Exam Const General: cooperative, healthy appearing, comfortable, no acute distress, well developed, alert and awake Orientation/consciousness: patient oriented x3 Limitations: no limitations HEENT Head: Yes normal to inspection, Yes normocephalic and Yes atraumatic Ears: hearing grossly normal bilaterally Eyes General: appearance normal, both eyes and all related structures Neck Neck: Yes normal visual inspection and Yes trachea midline Chest Chest palpation & inspection: normal inspection of the chest Resp Effort & Inspection: normal respiratory effort and able to speak in complete sentences Cardio Rate: regular rate GI Inspection: Yes normal to inspection General: Yes no CVA tenderness Back/Spine/Pelvis Back: no CVA tenderness Skin General skin exam: no rashes or lesions noted Neuro General: patient oriented x3 Extrem General: Yes normal to inspection Psych Appearance: grossly normal and well kempt Mental Status: mental status grossly normal Speech and movement: Normal speech and movement present and Clear speech present Affect: normal affect Attitude: cooperative Thought process: Normal thought process present Thought content: Normal thought content present Insight: Fair insight present (Psych) Judgement: Fair judgement present (Psych) Office Procedures Post Void Residual Post Residual Void Post Void Residual (PVR): 0 [id number]-[id number] Void Residual by ultrasound Results Reviewed Results Reviewed: Date of Service: 04/22/24 EXAMINATION: US RETROPERITONEAL COMPLETE (RENAL) FINDINGS: RIGHT KIDNEY: 7 x 3 x 5 cm (SAG x AP x TRV). Volume is 54 cc. Small. No hydronephrosis. No solid or cystic lesion. The LEFT KIDNEY: 13 x 6 x 6 cm (SAG x AP x TRV). Volume is 235 cc. There is an exophytic 5 cm septated anechoic lesion in the upper pole without flow on color Doppler interrogation. 2.1 cm septated anechoic lesion in the corticomedullary junction in the midportion without flow on color Doppler interrogation. No hydronephrosis. BLADDER: Fluid-filled. Bilateral ureteral jets are demonstrated. Prevoid bladder volume is 364 mL. Postvoid bladder volume is 112 mL. . IMPRESSION: Complex septated cystic lesions in the left kidney the largest in the upper pole. Recommend IV contrast enhanced CT versus MRI renal mass protocol. No hydronephrosis. 112 urinary retention.. Assessment & Plan Assessment & Plan (1) Nocturia: Code(s): R35.1 - Nocturia Category: Medical (2) Urinary urgency: Code(s): R39.15 - Urgency of urination Category: Medical (3) Overactive bladder: Code(s): N32.81 - Overactive bladder Category: Medical (4) Complex renal cyst: Code(s): N28.1 - Cyst of kidney, acquired Category: Medical Plan In office urinalysis results reviewed with the patient today; as noted above. PVR 0 mL. Recent renal imaging results reviewed with the patient today; as noted above. We discussed further interventions and CT or MRI renal mass protocol versus surveillance monitoring; risks and benefits of these interventions were discussed. We discuss trial of other OAB medication given patient's age and beers criteria however she declines at this time. She denies any bothersome urinary issues or concerns. She reports be happy with current voiding parameters. Will obtain MRI renal mass protocol in 1 year. Follow-up in 1 year with imaging to be completed prior; or sooner with any issues, concerns, and or questions. Orders: Orders AMB Urinalysis Automated 05/01/24 Z13.9 - Encounter for screening, unspecified AMB Post Void Residual by ultrasound 05/01/24 R35.0 - Frequency of micturition Patient Instructions: The patient had an opportunity to ask questions regarding the treatment plan. All questions were answered. Physical exam, labs, and imaging were discussed and reviewed in detail. As well as risks, benefits, and discussion of treatment choices. No major barriers to understanding were identified. The patient expressed understanding and agreement with the above treatment plan. The patient was made aware they should contact our office by phone for worsening of their current condition, the appearance of new symptoms, or with any questions or concerns. Compliance is encouraged with any medications and follow up testing that is ordered. It is a privilege to be allowed the opportunity to participate in? your urological care.? Again, if you have any questions or concerns If you have any questions or concerns please do not hesitate to contact me. The office is [phone]. This note is constructed using voice recognition software. While every effort has been made to ensure accuracy wirer maintenance errors may have been included. Yours sincerely, PAMELA Zeng Coding Level of Care Code Est Pt Level 3 (17786) Complex EM visit Add On G2211 Diagnoses Nocturia R35.1 Urinary urgency R39.15 Overactive bladder N32.81 Complex renal cyst N28.1 CPT Codes Post Residual Void - PVR CPT Code: 37023-Qklq Void Residual by ultrasound ([id number])
== END 2024-05-01 10:01 | disposition home or self-care (01) ==
LOC: HO.HUSH 09:22
PROVIDERS: PCP Internal Medicine; Visit Provider Nurse Practitioner Family
DX: R35.1 Nocturia (principal); R39.15 Urgency of urination; N32.81 Overactive bladder; N28.1 Cyst of kidney, acquired
CPT/HCPCS: 99213; G2211

== ENCOUNTER → 2024-05-01 09:22 | Outpatient (BNVA) | payer MEDICARE, SELFPAY | PROVIDERS: PCP Internal Medicine; Visit Provider Nurse Practitioner Family | DX: R35.1 Nocturia (principal); R39.15 Urgency of urination; N32.81 Overactive bladder; R35.0 Frequency of micturition; N28.1 Cyst of kidney, acquired | CPT/HCPCS: 51798; 99212 ==

== ENCOUNTER 2024-06-07 07:21 | Outpatient (REF) | payer MEDICARE, SELFPAY ==
--- NOTE | ~2024-06-07 | CT_ITS ---
EXAMINATION: CT CHEST WITHOUT CONTRAST CLINICAL INFORMATION: Solitary pulmonary nodule COMPARISON: CT chest 04/20/2023. TECHNIQUE: Multidetector volumetric CT imaging of the chest was done. Axial MIP volume rendering provided. Sagittal and coronal reformatted images were obtained. This CT examination was performed using dose optimization techniques as appropriate, variously including the following: *Automated exposure control *Adjustment of mA and/or kV according to patient size (this includes techniques or standardized protocols for targeted exams where dose is matched to indication/reason for exam; i.e. extremities or head) *Use of iterative reconstruction technique DLP: 107 mGy/cm. FINDINGS: DIE POLISHER: Hyperinflated lungs. LUNGS: There is diffuse centrilobular emphysema without acute pneumonic process. There is a 4 mm groundglass nodule left upper lobe, image 151/6 punctate 1 mm calcification in the left major fissure image 20/6, pleural 1 mm nodule left lower lobe axial image 255/5, 2 mm subpleural nodule right middle lobe axial image 265/6, October nodule right middle lobe axial image 307/6, 3 mm nodule left lingula axial image 40/6. Some of these nodules are new since the last exam especially the last couple of nodules. MEDIASTINUM: Thyroid lobes are symmetric and normal. The central trachea and the bronchi are widely patent. Heart size and the great vessels are normal caliber. No pericardial effusion seen. No abnormal size mediastinal hilar lymph nodes seen. CORONARY ARTERY CALCIFICATION: Trace coronary artery calcification seen. PLEURA: There is no pleural effusion. No pleural mass or thickening. AXILLA: No abnormal size axillary lymph nodes seen. There are bilateral augmented breasts with thick calcified capsule. There is probable right lateral wall breast prosthesis rupture but contained. Correlate with mammogram. UPPER ABDOMEN: Liver, gallbladder and pancreas are unremarkable. A small splenic granuloma. The spleen is otherwise unremarkable. The adrenal glands are unremarkable. A small right kidney lower pole seen OSSEOUS STRUCTURES: No aggressive lytic or sclerotic process seen. CT/CT chest wo IV con IMPRESSION: The 6 mm groundglass nodule seen previously now measures 4 mm in left upper lobe. Q. daily new pulmonary nodules visualized measuring less than 3 mm. No abnormal mediastinal hilar lymph nodes seen. Bilateral augmented breasts with thick calcified capsule. There is likely rupture of the right prosthesis. It is stable however to 04/20/2023 exam. Fleischner guidelines were followed. Electronically signed by: Jerry Viera MD 07/23/2024 12:24 PM EST
== END 2024-06-07 07:22 | disposition home or self-care (01) ==
LOC: HO.CT 07:21
PROVIDERS: PCP Internal Medicine; Visit Provider Internal Medicine
DX: R91.1 Solitary pulmonary nodule (principal)
CPT/HCPCS: 71250

== ENCOUNTER → 2024-06-07 07:24 | Outpatient (BNV) | payer MEDICARE, SELFPAY | PROVIDERS: PCP Internal Medicine; Visit Provider Radiology Diagnostic Radiology | DX: R91.1 Solitary pulmonary nodule (principal) | CPT/HCPCS: 71250 ==

== ENCOUNTER → 2024-06-18 08:55 | Outpatient (REF) | payer MEDICARE, SELFPAY ==
--- NOTE | 2024-06-18 08:57 | CA_ITS ---
Transthoracic Echocardiogram Patient (Last, First, Middle): Nikunj Lizama M Gender: Female Date of : 1945 Age: 78 Procedure Date: 06/18/2024 Procedure Type: Transthoracic Echocardiogram Location: OP Height: 170. cm Weight: 65.77 kg BSA: 1.76 m2 Heart Rate: 79 bpm BP: 130 / 70 mmHg Cripple Cutter: JULI Referring MD: Los Strickland MD Symptoms: I77.810 - Thoracic aortic ectasia Study Quality: Technically Difficult/Breast implant/Adequate ECG Rhythm: Sinus Conclusions: - The left ventricular systolic function is normal. The calculated ejection fraction is 69% by biplane method. - No obvious valvular pathology seen on this study. Findings Left Ventricle Normal left ventricular cavity size. There is mildly increased left ventricular wall thickness. The left ventricular systolic function is normal. The calculated ejection fraction is 69% by biplane method. There is no evidence of regional wall motion abnormalities. Diastolic function is normal for age. There is moderate septal and moderate basal asymmetric hypertrophy. LV peak GLS -19.7%. Right Ventricle Normal right ventricular cavity size and systolic function. Atria Both atria are normal in size. Aortic Valve There is a normal trileaflet aortic valve. There is no aortic valve stenosis. There is no aortic valve regurgitation. Mitral Valve There is mild mitral annular calcification. There is trace mitral valve regurgitation. There is no mitral valve stenosis. Pulmonic Valve The pulmonic valve is likely normal. Tricuspid Valve There is trace tricuspid valve regurgitation. There is no evidence of pulmonary hypertension. Great Vessels The asc aorta and aortic arch are normal in size. Venous The inferior vena cava is normal in size and collapses greater than 50% with inspiration. Pericardium/Pleural There is no evidence of pericardial effusion. Prior Study Comparison No significant change compared to prior study dated: 04/13/2023. Recommendations, Care & Conclusions No obvious valvular pathology seen on this study. Measurements 2D Linear Measurements IVSd: 1.34 0.6-0.9/0.6-1.0 cm LVIDd: 3.08 3.9-5.3/4.2-5.9 cm LVIDd Index: 1.75 2.4-3.2/2.2-3.1 cm/m2 LVIDs: 1.93 2.0-3.6 cm LVPWd: 1.18 0.7-1.1 cm LA Diam: 3.50 2.7-3.8/3.0-4.0 cm LAIDs Index: 1.99 1.5-2.3 cm/m2 LV Mass: 152.25 67-162/88-224 g LV Mass Index: 86.51 43-95/49-115 g/m2 LVOT Diam: 2.00 3.0+(-)1.3 cm 2D Systolic Function EF 4C: 64.70 >55% EF 2C: 72.00 >55% EF BiP: 68.60 >55% Mitral Valve MV Pk E: 0.73 MV PK A: 0.86 MV Decel Time: 249.00 E/A: 0.80 E'Lateral: 8.16 E'Medial: 7.94 E/E' Med: 9.20 E/E' Lat: 8.90 PHT: 73.00 MVA PHT: 3.01 Decel Blaine: 2.93 Aortic Valve AoV Pk Steven: 1.31 AoV Mn Steven: 1.01 AoV VTI: 0.30 AoV Pk Grad: 7.00 Aov Mn Grad: 4.00 CARLOS Cont.VTI: 2.14 LVOT LVOT Pk Steven: 1.04 LVOT Mn Steven: 0.72 LVOT VTI: 0.20 LVOT Pk Grad: 4.00 LVOT Mn Grad: 2.00 LVOT Diam: 2.00 LVOT Area: 3.14 Diastolic Function MV Pk E: 0.73 MV Pk A: 0.86 E/A: 0.80 E'Medial: 7.94 E/E' Med: 9.20 E' Laterial: 8.16 E/E' Lat: 8.90 Right Ventricle TAPSE (mm): 27.40 TVS' Steven: 13.40 Tricuspid Valve TR Pk Steven: 1.87 TR Pk Grad: 14.00 RA Press: 3.00 RVSP: 17.00 Great Vessels Aorta Sinus of Valsalva: 3.70 2.0-3.5 cm Ao Asc: 3.60 2.1-3.4 cm Ao Arch: 3.20 Pulmonary Valve PV Pk Steven: 1.06 Peak PV Grad: 4.00 Updated in Other Vendor System with Status of Final Los Strickland MD electronically signed on 06/18/2024 12:23:49 PM with status of Final
== END ==
LOC: HO.CARD 08:55
PROVIDERS: PCP Internal Medicine; Visit Provider Internal Medicine
DX: I77.810 Thoracic aortic ectasia (principal)
CPT/HCPCS: 93306

== ENCOUNTER → 2024-06-18 08:57 | Outpatient (BNV) | payer MEDICARE, SELFPAY | PROVIDERS: PCP Internal Medicine; Visit Provider Internal Medicine | DX: I42.2 Other hypertrophic cardiomyopathy (principal); I34.81 Nonrheumatic mitral (valve) annulus calcification | CPT/HCPCS: 93306; 93356 ==

== ENCOUNTER 2024-07-16 08:55 | Outpatient (AMB) | payer MEDICARE, SELFPAY ==
[2024-07-16 09:06] VITALS: BP 132/70; PULSE 75; BMI 23.4
--- NOTE | 2024-07-16 09:06 | MHC.OFFVIS ---
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 Cardiac catheterization showed mild nonobstructive coronary disease. Her last visit was 06/27/2023 and she now presents for follow-up. Today she reports that she has been feeling well overall. She continues to have some shortness of breath after physical activity. She denies shortness of breath during activity but finds that she needs to rest and catch her breath afterwards. This symptom is unchanged in the last 2 years. No chest discomfort at rest or with activity. No PND, orthopnea or edema. No palpitations, lightheadedness, presyncope, syncope. She reports being active and goes to the gym periodically where she does upper body exercises and light cardio. She is compliant with her meds. [facility] Medical History (Updated 07/16/24 @ 10:56 by Naheed Bridges, EDWARD-C) Shortness of breath on exertion Hypertension Hypercalcemia Atrial arrhythmia Chest pain Vitamin B12 deficiency Impacted cerumen of right ear TSH elevation CVA (cerebral vascular accident) Anemia Left renal mass Osteoporosis Hypercholesterolemia Surgical History Hx of colonoscopy History of cardiac cath History of ankle surgery History of bunionectomy History of breast implant History of tubal ligation Family History Father Colon cancer Mother CHF (congestive heart failure) Daughter In good health Son In good health Sister In good health Sister In good health Sister In good health Brother In good health Social History Housing: House Alcohol intake: current Alcohol intake frequency: a few times a month Patient Tobacco Use Status: Never used Tobacco e-Cigarette/Vaping Use: Never Used Second Hand Smoke Exposure: No Current occupational status: retired Cognitive needs: No Hearing needs: Yes Vision needs: Yes Review of Systems Const All systems reviewed & are unremarkable except as noted in HPI and below ENT Denies dizziness Card Denies chest pain, Denies chest pain at rest, Denies chest pain with activity, Denies rapid heart rate, Denies pedal edema, Denies edema, Denies leg edema, Denies lightheadedness, Denies palpitations, Denies dyspnea, Reports dyspnea on exertion (notices it after being active - needs to rest) and Denies orthopnea Resp Details: upper chest congestion from recent cold Denies cough, Denies dyspnea and Reports dyspnea on exertion (notices it after being active - needs to rest) GI Denies hematochezia and Denies change in stool character Musc Denies abnormal gait, Denies limited range of motion, Denies muscle cramps, Denies muscle weakness, Denies numbness, Denies radiating pain into limb, Denies stiffness and Denies tingling Neuro Denies abnormal gait, Denies dizziness, Denies numbness and Denies tingling Endo Denies palpitations Physical Exam Vital Signs: Last Vital Signs Pulse 75 07/16/24 09:06 BP 132/70 07/16/24 09:06 BMI result Body Mass Index 23.4 Const General: cooperative, healthy appearing, comfortable and no acute distress Orientation/consciousness: patient oriented x3 Neck Neck: Yes normal visual inspection Resp Effort & Inspection: normal respiratory effort Auscultation: clear to auscultation bilaterally, no rales, no rhonchi and no wheezes Cardio Rate: regular rate Rhythm: regular rhythm Heart sounds: S1 normal heart sound present, S2 normal heart sound present, no murmurs and no rubs Neuro General: patient oriented x3 Extrem General: Yes normal to inspection and No no pedal edema Psych Appearance: grossly normal Mental Status: mental status grossly normal Speech and movement: Normal speech and movement present Office Procedures EKG Details: Today, read by me, normal sinus rhythm, can not exclude prior anterior infarct, nonspecific ST and T-wave abnormality in lead 1 and aVL, some artifact noted on tracing, rate 75, QTC 457 milliseconds [id number], Complete Results Reviewed Results Reviewed: Echocardiogram 12/21/21 with LVEF 65-70%, no significant valvular pathology, otherwise unremarkable. Mild diastolic dysfunction with normal filling pressures. Strain was also unremarkable. Myocardial perfusion imaging study 10/26/21 without any definitive evidence of ischemia or infarction. Cardiac catheterization 06/14/22 proximal circumflex/1st marginal 40% stenosis. Otherwise unremarkable. Normal left and right-sided filling pressures. Exercise stress echocardiogram 04/13/23 where she reached 6.9 METS and had shortness of breath but there was no evidence of exercise induced diastolic dysfunction or pulmonary hypertension on the echocardiogram Assessment & Plan Assessment & Plan (1) Shortness of breath on exertion: Code(s): R06.02 - Shortness of breath Category: Medical Plan: Reports of shortness of breath with exertion. She tells me her symptom mostly occurs after she has done physical activity and has not changed in last 2 years. She underwent cardiac evaluation without significant findings. She was found to have nonobstructive coronary disease however this does not contribute to her symptom. EKG done today showing normal sinus rhythm, can not exclude prior anterior infarct, nonspecific ST and T-wave abnormality laterally, rate 75. Today she has no recent change to her symptoms. She has no chest discomfort at rest or with activity. She will continue to monitor symptoms and notify this office if she has changes. (2) Coronary artery arteriosclerosis: Comment: Nonobstructive Code(s): I25.10 - Atherosclerotic heart disease of [place] coronary artery without angina pectoris Category: Medical Plan: Cardiac catheterization with finding of mild nonobstructive coronary disease. He has no reports of chest discomfort. Will continue med management for stable mild CAD. Continue aspirin indefinitely. Continue atorvastatin with ideal LDL goal less than 70. She is due for an updated fasting lipid profile. Labs normally followed by her PCP. Continue activity as tolerated. Cardiology follow-up 1 year, sooner if needed. (3) History of cardiac cath: Comment: 06/14/2022 showing left main, LAD and RCA normal, left circumflex proximal 40% stenosis, 1st OM 40% stenosis, normal filling pressures, LVEDP normal, wedge 4 Code(s): Z98.890 - Other specified postprocedural states Category: Surgical Plan: As above (4) Ascending aorta enlargement: Code(s): I77.89 - Other specified disorders of arteries and arterioles Category: Medical Plan: Ascending aorta very mildly elevated on echocardiogram. Most recent echo 06/18/2024 showed EF 69%, moderate septal and basal asymmetric hypertrophy, ascending aorta 3.6 cm, unchanged from echo 04/13/2023. (5) Hypercholesterolemia: Code(s): E78.00 - Pure hypercholesterolemia, unspecified Category: Medical Plan: As above (6) Hypertension: Code(s): I10 - Essential (primary) hypertension Category: Medical Qualifiers: Hypertension type: essential hypertension Qualified Code(s): I10 - Essential (primary) hypertension Plan: Well controlled at this time. Continue amlodipine Plan Time spent on chart review, documentation, interview assessment Coding Level of Care Code Est Pt Level 4 (27117) Complex EM visit Add On G2211 Diagnoses Shortness of breath on exertion R06.02 Coronary artery arteriosclerosis I25.10 History of cardiac cath Z98.890 Ascending aorta enlargement I77.89 Hypercholesterolemia E78.00 Essential hypertension I10 Hypertension type: essential hypertension CPT Codes EKG - CPT: [id number], Complete ([id number]) Time Spent (min) 28
== END 2024-07-16 09:35 | disposition home or self-care (01) ==
PROVIDERS: PCP Internal Medicine; Visit Provider Nurse Practitioner Family
DX: R06.02 Shortness of breath (principal); I25.10 Atherosclerotic heart disease of native coronary artery without angina pectoris; Z98.890 Other specified postprocedural states; I77.89 Other specified disorders of arteries and arterioles; E78.00 Pure hypercholesterolemia, unspecified; I10 Essential (primary) hypertension
CPT/HCPCS: 93010; 99214; G2211

== ENCOUNTER → 2024-07-16 08:55 | Outpatient (BNVA) | payer MEDICARE, SELFPAY | PROVIDERS: PCP Internal Medicine; Visit Provider Nurse Practitioner Family | DX: I10 Essential (primary) hypertension (principal); I25.10 Atherosclerotic heart disease of native coronary artery without angina pectoris; I77.89 Other specified disorders of arteries and arterioles; E78.5 Hyperlipidemia, unspecified; R06.02 Shortness of breath; E78.00 Pure hypercholesterolemia, unspecified; Z98.890 Other specified postprocedural states; Z79.899 Other long term (current) drug therapy | CPT/HCPCS: 93005; 99212 ==

== ENCOUNTER 2024-08-01 08:36 | Outpatient (REF) | payer MEDICARE, SELFPAY ==
[2024-08-01 10:11] LABS: MANUAL DIFF FLAG NO
[2024-08-01 10:21] LABS: Basophils Absolute Auto 0.1 X10*3/uL (0.0-0.2); Basophils Percent Auto 1.4 % (0-2); Eosinophils Absolute Auto 0.3 X10*3/uL (0.0-0.4); Eosinophils Percent Auto 5.5 % (0-4); Hematocrit 37.1 % (37.0-47.0); Hemoglobin 12.1 g/dl (12.0-16.0); Imm Gran Abs Auto 0.02 X10*3/uL (0.00-0.03); Imm Gran Pct Auto 0.4 % (0.0-0.4); Lymphocytes Absolute Auto 1.9 X10*3/uL (1.2-4.9); Lymphocytes Percent Auto 38.7 % (20-40); Mean Corpuscular HGB Conc 32.6 g/dl (31.0-35.0); Mean Corpuscular Hemoglobin 29.5 pg (27.0-33.0); Mean Corpuscular Volume 90.5 fL (80.0-98.0); Mean Platelet Volume 10.9 fL (9.4-12.3); Monocytes Absolute Auto 0.5 X10*3/uL (0.1-1.2); Neutrophils Absolute Auto 2.1 x10*3/uL (2.0-8.3); Platelet Count 192 X10*3/uL (160-400); White Blood Count 4.9 X10*3/uL (4.8-10.8)
[2024-08-01 10:58] LABS: Alanine Aminotransferase 45 U/L (0-31); Albumin Level 4.2 g/dL (3.5-5.0); Alkaline Phosphatase 49 U/L (39-117); Anion Gap 10 (12-20); Aspartate Amino Transferase 55 U/L (5-31); Bilirubin Total 0.6 mg/dL (0.0-1.0); Blood Urea Nitrogen 10 mg/dL (9-16); Calcium 9.4 mg/dL (8.4-10.2); Carbon Dioxide 26 mmol/L (22-29); Chloride 110 mmol/L (96-108); Cholesterol 154 mg/dL (<200); Estimated Glomerular Filt Rate > 60; Glucose Random 96 mg/dL (60-115); HDL Cholesterol 73 mg/dL (>40); LDL Cholesterol Calculated 71 mg/dL (<100); Potassium 4.5 mmol/L (3.3-5.1); Sodium 141 mmol/L (135-145); Triglycerides 52 mg/dL (<150)
[2024-08-01 11:13] LABS: Folate 15.9 ng/mL (> or = 4.0); Vitamin B12 > 2000 pg/mL (200-900)
[2024-08-01 11:19] LABS: Thyroid Stimulating Hormone 3.17 uIU/mL (0.32-4.0); Vitamin D 25-OH Total 47.5 ng/mL (>30)
== END 2024-08-01 08:37 | disposition home or self-care (01) ==
LOC: HO.HMGCLDS 08:36
PROVIDERS: PCP Internal Medicine; Visit Provider Internal Medicine
DX: E78.00 Pure hypercholesterolemia, unspecified (principal)
CPT/HCPCS: 36415; 80053; 80061; 82306; 82607; 82746; 84439; 84443; 85025

== ENCOUNTER 2024-08-12 09:45 | Outpatient (AMB) | payer MEDICARE, SELFPAY ==
--- NOTE | 2024-08-12 10:03 | A.OFFVIS_ITS ---
Intake Vital Signs 08/12/24 10:05 Height 5 ft 7 in Weight 149 lb 8 oz BMI 23.4 BP 140/80 H Blood Pressure Location Lt brachial Position Sitting Pulse 76 Pulse Source Pulse Oximeter Temp 97.1 F Temp Source Skin Pulse Oximetry (%) 100 Oxygen Delivery Method Room Air Intake Visit Reasons: [facility] G0439 Intake Note: Patient is here for an Annual Wellness Visit. 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: Carton Waxing Machine Operator offered & declined Accompanied by: Self / Same As Patient Allergies sulfur Allergy (Unknown, Verified 08/12/24 10:31) hives Medication List - Last Reconciled 08/12/24 by Sonia Quiñonez PA-C amlodipine 10 mg PO DAILY 90 days aspirin 81 mg PO DAILY atorvastatin 80 mg PO DAILY oxybutynin chloride ER 10 mg PO DAILY 90 days triamcinolone acetonide 0.1% 1 appl topical BID vitamin B comp and C no.3 (B Complex Plus Vitamin C) 1 cap PO DAILY HPI SWV G0439 HPI Details 79-year-old female with past medical his tory of hypertension, hypercholesterolemia last seen 04/[address] Wallace coming in for annual wellness exam.? In review of the notes patient was seen by Cardiology 07/16/2024 advised to continue on atorvastatin with LDL goal less than 70 and follow up in 1 year.? Patient was seen by Urology 05/01/2024 advised to undergo MRI renal mass protocol in 1 year and follow up in 1 year. mammo: refused colo: 2023 repeat in 5 years DEXA: referred today [facility] and HCP: given and reviewed during this visit to be completed at home. pap: no longer needed/refused Patient states she exercises regularly and plan at fitness has a good diet. She does have 1 concern today she has ringing in bilateral ears which is a chronic problem and would like to be evaluated through an ear nose and throat specialists. She also mentions having an itchy patch of skin on the right ankle. She states her blood pressures at home are typically in the 130/80 range and does not exceed 140 systolic. [facility] Medical History Shortness of breath on exertion Hypertension Hypercalcemia Atrial arrhythmia Chest pain Vitamin B12 deficiency Impacted cerumen of right ear TSH elevation CVA (cerebral vascular accident) Anemia Left renal mass Osteoporosis Hypercholesterolemia Surgical History Hx of colonoscopy History of cardiac cath History of ankle surgery History of bunionectomy History of breast implant History of tubal ligation Family History Father Colon cancer Mother CHF (congestive heart failure) Daughter In good health Son In good health Sister In good health Sister In good health Sister In good health Brother In good health Social History Housing: House Alcohol intake: current Alcohol intake frequency: a few times a month Patient Tobacco Use Status: Never used Tobacco e-Cigarette/Vaping Use: Never Used Second Hand Smoke Exposure: No Current occupational status: retired Cognitive needs: No Hearing needs: Yes Vision needs: Yes Questionnaire Medicare Wellness Checkup [age] What gender do you identify with?: female During the past 4 weeks, how much have you been bothered by emotional problems such as feeling anxious, depressed, irritable, sad or downhearted, and blue?: moderately During the past 4 weeks, has your physical & emotional health limited your s ocial activities with family, friends, neighbors, or groups?: not at all During the past 4 weeks, how much bodily pain have you generally had?: no pain During the past 4 weeks, was someone available to help you if you needed & wanted help?: yes, as much as I wanted During the past 4 weeks, what was the hardest physical activity you could do for at least 2 minutes?: heavy Can you get to places out of walking distance without help? (For eg., can you travel alone on buses, taxis or drive your car?): Yes Can you go shopping for groceries or clothes without someone's help?: Yes Can you prepare your own meals?: Yes Can you do your housework without help?: Yes Because of any health problems, do you need the help of another person with your personal care needs such as eating, bathing, dressing or getting around the house?: Yes Can you handle your own money without help?: Yes During the past 4 weeks, how would you rate your health in general?: good During the past 4 weeks how have things been going for you?: pretty well Are you having difficulties driving your car?: no Do you always fasten your seat belt when you are in a car?: yes, usually During past 4 weeks, have you been bothered by the following: never: Sexual problems?, Trouble eating well?, Teeth or denture problems? and Problems using the telephone? and seldom: Falling or dizzy when standing up and Tiredness or fatigue? Have you fallen 2 or more times in the past year?: Yes Are you afraid of falling?: Yes Are you a smoker?: no During the past 4 weeks, how many drinks of wine, beer, or other alcoholic beverages did you have?: 1 drink or less per week Do you exercise for about 20 minutes 3 or more times a week?: yes, all the time Have you been given information to help with the following?: no: Hazards in your house that might hurt you? and no: Keeping track of your medications? How often do you have trouble taking medicines the way you have been told to take them?: I always take medicine as prescribed How confident are you that you can control & manage most of your health problems?: very confident What is your race?: White PHQ-9 Over the last 2 weeks, how often have you been bothered by any of the following problems? 1. Little interest or pleasure in doing things: not at all 2. Feeling down, depressed, or hopeless: not at all 3. Trouble falling or staying asleep, or sleeping too much: several days 4. Feeling tired or having little energy: several days 5. Poor appetite or overeating: not at all 6. Feeling bad about yourself - or that you are a failure or have let yourself or your family down: not at all 7. Trouble concentrating on things, such as reading the newspaper or watching television: not at all 8. Moving or speaking so slowly that other people could have noticed. Or the opposite - being so fidgety or restless that you have been moving around a lot more than usual: not at all 9. Thoughts that you would be better off or of hurting yourself in some way: not at all Total score: 2 Depression Screening Interpretation: Negative Depression Screening Done: Yes Source: Developed by Drs. Lavonne Samuels, Dom Aguilar and colleagues, with an educational cat from [employer]. Thrive Questionnaire Date Thrive assessed: 08/12/24 I am a: Patient What is your living situation today?: I have a steady place to live Within the past 12 months, did the food you bought not last and you didn't have the money to get more?: Never true Within the past 12 months, did you worry whether your food would run out before you got money to buy more?: Never true Do you have trouble paying for medicines?: No Do you have trouble getting transportation to medical appointments?: No Do you have trouble paying your heating and electricity bill?: No Do you have trouble taking care of your child, family member or friend?: No Do you have trouble with day-to-day activities such as bathing, preparing meals, shopping, managing finances, etc.?: No Are you currently unemployed and looking for a job?: No Are you interested in more education?: No Please select the resources that you would like help with: None Currently or been in a relationship where the following occur: No concerns reported THRIVE Score: 0 TONY-7 AMB Questionnaire TONY-7 Date TONY - 7 assessed: 08/12/24 Feeling nervous, anxious, or on edge: 0 = Not at all Not being able to stop or control worryin = Not at all Worrying too much about different things: 0 = Not at all Trouble relaxin = Not at all Being so restless that it is hard to sit still: 0 = Not at all Becoming easily annoyed or irritable: 0 = Not at all Feeling afraid as if something awful might happen: 0 = Not at all Total TONY-7 score (0-4 normal; 5-9 mild; 10-14 moderate; 15-21 severe): 0 Source: Developed by Drs. Steven Omer, Lavonne Mattson, Dom Aguilar and colleagues, with an educational cat from [employer]. AUDIT C Alcohol Use Questionnaire (AUDIT-C) 1. How often do you have a drink containing alcohol?: 2-4 times a month 2. How many drinks containing alcohol do you have on a typical day when you are drinking?: 1 or 2 Total Score: 2 Review of Systems Const Denies body aches, Denies fatigue, Denies fever(s), Denies frequent falls, Denies headache(s) and Denies weakness Eyes Reports no additional complaints and Denies change in vision ENT Denies dysphagia, Denies dizziness, Denies facial pain, Denies headache(s), Reports hearing loss, Denies nasal congestion, Denies odynophagia and Reports tinnitus Card Denies chest pain, Denies syncope, Denies irregular heart rhythm, Denies leg edema, Denies lightheadedness and Denies dyspnea Resp Denies cough and Denies dyspnea GI Denies abdominal pain, Denies constipation, Denies dysphagia, Denies dyspepsia, Denies diarrhea, Denies nausea, Denies odynophagia and Denies vomiting Denies urinary frequency, Denies dysuria, Denies urinary hesitancy and Denies urinary urgency Musc Denies back pain and Denies myalgias Skin/Breast Reports system reviewed and no additional complaints, except as documented Neuro Denies dizziness, Denies syncope, Denies frequent falls, Denies headache(s) and Denies weakness Psych Reports no additional complaints Endo Denies fatigue Physical Exam Vital Signs: Last Vital Signs Temp 97.1 F 08/12/24 10:05 Pulse 76 08/12/24 10:05 BP 140/80 H 08/12/24 10:05 Pulse Ox 100 08/12/24 10:05 Oxygen Delivery Method Room Air 08/12/24 10:05 BMI result Body Mass Index 23.4 Const General: cooperative, healthy appearing, comfortable and no acute distress Orientation/consciousness: patient oriented x3 HEENT Head: Yes normocephalic Ears: hearing grossly normal bilaterally, external ears normal, TM's normal bilaterally and EAC's normal General nose exam: Normal external nose present Face and sinus: Yes normal facial exam and Yes sinuses nontender Mouth: Normal oral and palatal mucosa present and tongue normal Throat: Yes posterior oropharynx normal Eyes General: appearance normal, both eyes and all related structures Conjunctivae: conjunctivae normal Pupils: Equal, round and reactive pupils present EOM: EOMs intact bilaterally and No Nystagmus present Neck Neck: Yes normal visual inspection, Yes full ROM and Yes no lymphadenopathy Chest Chest palpation & inspection: normal inspection of the chest Resp Effort & Inspection: normal respiratory effort Auscultation: clear to auscultation bilaterally, no crackles, no rales, no r honchi, no wheezes and breath sounds present Cardio Rate: regular rate Rhythm: regular rhythm Peripheral pulses: radial pulses present and dorsalis pedis present GI Inspection: Yes normal to inspection and No Abdominal wall edema Palpation (GI): Soft to palpation, not firm and nontender Auscultation: normal bowel sounds Rectal Exam - Female: deferred General: Yes no CVA tenderness Back/Spine/Pelvis Back: no CVA tenderness Skin General skin exam: no rashes or lesions noted Neuro General: patient oriented x3 Cranial nerves: Yes Equal, round and reactive pupils present, Yes Midline tongue present, Yes Ability to bilaterally elevate shoulders present and No Nystagmus present Gait exam (Neuro): Normal gait present Extrem General: Yes normal to inspection, Yes full ROM, No no pedal edema and No edema Psych Speech and movement: Normal speech and movement present Affect: normal affect Insight: Good insight present (Psych) Judgement: Good judgement present (Psych) Assessment & Plan Assessment & Plan (1) Hypertension: Code(s): I10 - Essential (primary) hypertension Qualifiers: Hypertension type: essential hypertension Qualified Code(s): I10 - Essential (primary) hypertension Plan: Continue on current blood pressure medication. Avoid salt intake and encourage healthy diet and regular exercise. Blood pressure mildly elevated today 140/80 and elevated when retaken at a similar value. Advised to continue to monitor blood pressures at home and if values are persistently above 140/90 to reach out to the office. (2) Pulmonary nodule: Comment: April 2023Two 6 mm groundglass and part solid nodules as above. Per Fleischner Society Guidelines recommend a non-contrast chest CT at 3-6 months. Subsequent management based on the most suspicious nodule(s). 07/2023 Code(s): R91.1 - Solitary pulmonary nodule Plan: Recent CT scan 06/2024 stable since last April (3) Family history of colon cancer in father: Comment: discussed 5 year plan- likely if no polyps- may not need to repeat in 5 years Discussed procedure, rare risks, need for escort prep Code(s): Z80.0 - Family history of malignant neoplasm of digestive organs Plan: Colonoscopy completed last year advised to follow up in 5 years. (4) Ascending aorta enlargement: Code(s): I77.89 - Other specified disorders of arteries and arterioles Plan: Advised to have good control of blood pressure and cholesterol. Recently saw cardiology advised to follow up in 1 year. (5) Overactive bladder: Code(s): N32.81 - Overactive bladder Plan: Recently saw Urology advised to undergo renal mass protocol. Continue to follow with urologist currently on oxybutynin 10 mg (6) Hypercholesterolemia: Code(s): E78.00 - Pure hypercholesterolemia, unspecified Plan: Avoid foods that are high in cholesterol such as red meat, fried foods, eggs and baked goods. Triglyceride goal of less than 150 and LDL goal of less than 70. Continue on atorvastatin 80 (7) Osteoporosis: Comment: July 2019 Code(s): M81.0 - Age-related osteoporosis without current pathological fracture Plan: Repeat bone density scan ordered today. (8) Mammogram declined: Comment: July 2019 Code(s): Z53.20 - Procedure and treatment not carried out because of patient's decision for unspecified reasons Plan: Patient continues to decline mammogram at this time (9) Vitamin B12 deficiency: Comment: 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 Code(s): E53.8 - Deficiency of other specified B group vitamins Plan: Continue to monitor blood work with serial B12 (10) History of cardiac cath: Comment: 06/14/2022 showing left main, LAD and RCA normal, left circumflex proximal 40% stenosis, 1st OM 40% stenosis, normal filling pressures, LVEDP normal, wedge 4 Code(s): Z98.890 - Other specified postprocedural states Plan: Continue to follow with Cardiology. Advised good control of cholesterol, blood sugars and blood pressures. (11) Impaired fasting blood sugar: Code(s): R73.01 - Impaired fasting glucose Plan: Decrease the amount of carbohydrates such as pasta, bread, rice, and potatoes and limit the amount of sweets. Although fruits are generally healthy they should be eaten in moderation as they are still high in sugar. (12) Coronary artery arteriosclerosis: Comment: Nonobstructive Code(s): I25.10 - Atherosclerotic heart disease of [place] coronary artery without angina pectoris Plan: Currently following with Cardiology stable on current medication regimen. Advised good control of blood pressure, cholesterol and blood sugars (13) Peripheral vascular disease: Code(s): I73.9 - Peripheral vascular disease, unspecified Plan: Advised good control of blood pressure, cholesterol and blood sugars. Healthy diet and regular exercise is encouraged. (14) Annual wellness visit: Code(s): Z00.00 - Encounter for general adult medical examination without abnormal findings Plan: Patient is up-to-date on all recommended routine screenings and vaccinations for her age. She continues to decline influenza, pneumonia and COVID vaccines and continues to decline mammogram at this time. I placed an order for a bone density scan. Blood work is up-to-date and within normal limits. [place] of care was reviewed with patient patient was provided with a written screening schedule. Healthcare proxy/ [facility] forms were reviewed with patient patient advised to bring completed forms to office to be scanned to chart (15) Tinnitus: Code(s): H93.19 - Tinnitus, unspecified ear Plan: Patient complaining of ringing in the ears which is a chronic problem for her does wear regular hearing aids. Referral placed to ENT (16) Decreased hearing of both ears: Code(s): H91.93 - Unspecified hearing loss, bilateral Plan: Patient complaining of decreased hearing in both ears she does regularly wear hearing aids. Referral placed to ENT for further evaluation Plan This note was constructed using voice recognition software. While every effort has been made to ensure accuracy and hog ribber, still areas may have been included sometimes these areas may affect the content or meeting of the given symptoms. Total time spent caring for the patient today was 30 minutes. This includes time spent before the visit reviewing the chart, time spent during the visit, and time spent after the visit and documentation. Orders: Orders XR DEXA axial skeleton Today Z78.0 - Asymptomatic menopausal state Referrals Ear/Nose/Throat Referral H91.93 - Unspecified hearing loss, bilateral, H93.19 - Tinnitus, unspecified ear Quality Reporting (2019) Depression/Bipolar (159/160/161/177) PHQ-9: Total score: 2 Coding Level of Care Code Medicare Subsequent (G0439) Diagnoses Essential hypertension I10 Hypertension type: essential hypertension Pulmonary nodule R91.1 Family history of colon cancer in father Z80.0 Ascending aorta enlargement I77.89 Overactive bladder N32.81 Hypercholesterolemia E78.00 Osteoporosis M81.0 Mammogram declined Z53.20 Vitamin B12 deficiency E53.8 History of cardiac cath Z98.890 Impaired fasting blood sugar R73.01 Coronary artery arteriosclerosis I25.10 Peripheral vascular disease I73.9 Annual wellness visit Z00.00 Tinnitus H93.19 Decreased hearing of both ears H91.93 CPT Codes Advance Care Planning - Time spent: 1-15 minutes, not on file ([id number]) Advance Care Planning Advance Care Planning discussion: Completed/Scanned Date of discussion: 08/12/24 Who was present: Patient Forms completed: Health Care Proxy and [facility] Time spent: 1-15 minutes, not on file Actual minutes spent: 10
[2024-08-12 10:05] VITALS: BP 140/80; PULSE 76; TEMP 36.2; O2SAT 100; BMI 23.4
== END 2024-08-12 10:57 | disposition home or self-care (01) ==
PROVIDERS: PCP Internal Medicine
DX: Z00.00 Encounter for general adult medical examination without abnormal findings (principal); I77.89 Other specified disorders of arteries and arterioles; I73.9 Peripheral vascular disease, unspecified; I10 Essential (primary) hypertension; R91.1 Solitary pulmonary nodule; Z80.0 Family history of malignant neoplasm of digestive organs; N32.81 Overactive bladder; E78.00 Pure hypercholesterolemia, unspecified; M81.0 Age-related osteoporosis without current pathological fracture; Z53.20 Procedure and treatment not carried out because of patient's decision for unspecified reasons; E53.8 Deficiency of other specified B group vitamins; R73.01 Impaired fasting glucose

== ENCOUNTER 2024-09-20 08:22 | Outpatient (REF) | payer MEDICARE, SELFPAY ==
--- NOTE | ~2024-09-20 | MM_ITS ---
EXAMINATION: DXA BONE DENSITY AXIAL HISTORY: Estrogen deficiency TECHNIQUE: Womply Dual energy absorptiometry (DEXA) of the lumbar spine, total left hip, and femoral neck was performed. COMPARISON: Comparison is made with the prior examination dated 05/27/2022. FINDINGS: The bone mineral density of the lumbar spine is 0.840 with a T-score of -2.8, and a Z-score of -1.1. This is indicative of osteoporosis. This represents a BMD change of 5.9% compared to the prior exam. This is statistically significant. The bone mineral density of the left total hip is 0.633 with a T-score of -3.0, and a Z-score of -1.2. This is indicative of osteoporosis. This represents a BMD change of -2.3% compared to the prior exam. This is not statistically significant. The bone mineral density of the left femoral neck is 0.637 with a T-score of -2.9, and a Z-score of -0.9. This is indicative of osteoporosis. This represents a BMD change of -3.2% compared to the prior exam. FRACTURE RISK: The FRAX index suggests a ten year probability of major osteoporotic fracture of 53.4%, and of hip fracture 40.1%. MM/XR DEXA axial skeleton IMPRESSION: Based on bone mineral density, and according to World Health Organization (WHO) criteria, the diagnosis is consistent with osteoporosis. All bone density values are in grams per centimeter squared (g/cm2). Statistically, 68% of repeat scans fall within 1 SD (+/- 0.010 g/cm2 for AP spine L1-L4) and 1 SD (+/- 0.012 g/cm2 for femur total) FRAX is a trademark of the [employer] [place] [facility] Metabolic Bone Disease, a World Health Organization (WHO) Collaborating Center. Electronically signed by: Steven Bowman MD 09/20/2024 09:57 AM EDT
== END 2024-09-20 08:23 | disposition home or self-care (01) ==
LOC: HO.MAMMO 08:22
DX: Z13.820 Encounter for screening for osteoporosis (principal); Z78.0 Asymptomatic menopausal state
CPT/HCPCS: 77080

== ENCOUNTER → 2024-09-20 08:45 | Outpatient (BNV) | payer MEDICARE, SELFPAY | PROVIDERS: Visit Provider Radiology Diagnostic Radiology | DX: E28.39 Other primary ovarian failure (principal) | CPT/HCPCS: 77080 ==

== ENCOUNTER 2024-10-09 07:52 | Outpatient (AMB) | payer MEDICARE, SELFPAY ==
--- NOTE | 2024-10-09 07:55 | MHC.OFFVIS ---
Vital Signs 10/09/24 08:00 Height 5 ft 6.42 in Weight 147 lb 14.883 oz BMI 23.6 BP 126/62 Blood Pressure Location Rt brachial Position Sitting Pulse 50 Pulse Source Pulse Oximeter Pulse Oximetry (%) 96 Oxygen Delivery Method Room Air Intake Visit Reasons: Osteoporosis Intake Note: New patient internally referred by PCP for Osteoporosis. 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 Diagnosed approximately four to five years ago, she has not pursued additional consults or treatments beyond her initial diagnosis. She reports no history of fractures common to osteoporosis, though she has experienced notable height loss, traditionally an indicator of potential vertebral compression fractures. A family history is significant for osteoporosis in both her sisters and a hip fracture in her mother. Her menstrual and menopausal history was uneventful with no need for supplemental estrogen therapy. The patient engages in regular weight-bearing exercises, which include pounding barbells around four or five times a week. Her diet consists of calcium-rich foods such as cheese, yogurt, fruits, ice cream, and certain fish. Despite taking vitamin D with some calcium supplementation, she is unable to specify their precise dosages. There is no record of smoking or substantial alcohol consumption. Of relevance is her history of coronary artery disease, a consideration in assessing medication options, as certain medications to treat osteoporosis may have cardiovascular implications. First diagnosed in 4-5 yrs ago.Never seen specialist before Not Received treatment in the past No history of pathologic fracture or ONJ. Has several servings of dietary calcium per day in the form of cheese, yogurt, salmon, ice cream . Takes Calcium supplement ? mg daily in divided doses. Takes ? IU of Vitamin D daily. Denies ever using PPI, anticoagulant, antiepileptic or glucocorticoid medication. Does weight bearing exercise 4-5 days per week in the form of light weight lifting . 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 age - nl mense Denies history of Kidney stones: Has family history of Osteoporosis in sisters and mom had hip fracture. UTD on dental cleanings and sees dentist every 6 months. No planned upcoming dental work or extractions. No tabacco use or heavy ETOH use DXA dated 09/20/24: FINDINGS: The bone mineral density of the lumbar spine is 0.840 with a T-score of -2.8, and a Z-score of -1.1. This is indicative of osteoporosis. This represents a BMD change of 5.9% compared to the prior exam. This is statistically significant. The bone mineral density of the left total hip is 0.633 with a T-score of -3.0, and a Z-score of -1.2. This is indicative of osteoporosis. This represents a BMD change of -2.3% compared to the prior exam. This is not statistically significant. The bone mineral density of the left femoral neck is 0.637 with a T-score of -2.9, and a Z-score of -0.9. This is indicative of osteoporosis. This represents a BMD change of -3.2% compared to the prior exam. FRACTURE RISK: The FRAX index suggests a ten year probability of major osteoporotic fracture of 53.4%, and of hip fracture 40.1%. MM/XR DEXA axial skeleton IMPRESSION: Based on bone mineral density, and according to World Health Organization (WHO) criteria, the diagnosis is consistent with osteoporosis. Labs: [facility] Medical History Shortness of breath on exertion Hypertension Hypercalcemia Atrial arrhythmia Chest pain Vitamin B12 deficiency Impacted cerumen of right ear TSH elevation CVA (cerebral vascular accident) Anemia Left renal mass Osteoporosis Hypercholesterolemia Surgical History Hx of colonoscopy History of cardiac cath History of ankle surgery History of bunionectomy History of breast implant History of tubal ligation Family History Father Colon cancer Mother CHF (congestive heart failure) Daughter In good health Son In good health Sister In good health Sister In good health Sister In good health Brother In good health Social History Housing: House Alcohol intake: current Alcohol intake frequency: a few times a month Patient Tobacco Use Status: Never used Tobacco e-Cigarette/Vaping Use: Never Used Second Hand Smoke Exposure: No Current occupational status: retired Cognitive needs: No Hearing needs: Yes Vision needs: Yes Physical Exam There are no Cushingoid features. Absence of blue sclera. Absence of kyphosis. Thyroid gland is of nl size and weighs 15 gms. There are no thyroid nodules palpated. Lungs CTA. Heart S1 S2 Reg R/R Abdominal exam benign. Muscle strength 5/5 . Examination of spine reveals absence of tenderness on palpation Assessment & Plan Assessment & Plan (1) Osteoporosis: Comment: July 2019 Code(s): M81.0 - Age-related osteoporosis without current pathological fracture Category: Medical Plan: This is a 79-year-old female with a history of osteoporosis with partial secondary workup Plan is to complete the secondary workup by checking a phosphorus level, 24 hour urine for calcium and creatinine, SPEP, urine immunofixation. We will ensure 1200 mg of calcium and vitamin D3 continued supplementation. Assuming secondary workup was negative would strongly consider the use of anabolic agent like Forteo or Tymlos initially in light of the high risk of fracture followed by an anti resorptive agent. Evenity may be relatively contraindicated in light of the history of ongoing coronary artery disease. 1. Osteoporosis Osteoporosis is managed through dietary measures and supplementation, with a goal of 1200 mg of daily calcium. Testing will include 24-hour urine and blood tests, followed by a consultation in four months to determine the necessity of pharmacological therapy. 2. Coronary Artery Disease The presence of CAD requires careful selection of osteoporosis treatments to minimize potential cardiovascular risks. Anabolic therapy options are preferred, avoiding those linked to adverse cardiac effects. An extensive discussion outlined the chronic nature of osteoporosis, distinguishing it from osteoarthritis for the patient's reassurance. Potential treatments were reviewed, focusing on both preventive and pharmacologic strategies. We discussed the importance of calcium and vitamin D intake, alongside considerations tailoring therapy decisions to align with the patient's coronary artery disease. Descriptions of possible medication regimens were provided, highlighting cost, administration, potential side effects, and insurance implications. We aim to perform comprehensive diagnostic testing, with plans for reevaluation in four months. The discussion stressed no immediate urgency, allowing a full understanding of therapeutic options. - Maintain a balanced diet with 1200 mg of calcium per day. - Review dietary intake and ensure adequate calcium consumption, supplemented as needed. - Continue regular vitamin D supplementation. - Schedule and complete 24-hour urine collection and blood work to assess calcium levels and any possible secondary causes of osteoporosis. - Follow up in four months for reassessment and further management based on diagnostic results. - The patient had an opportunity to ask questions regarding treatment plan. The patient expressed understanding and agreement with the above treatment plan. Patient was informed and verbally consented to the use of an ambient scribe for clinic note documentation during this visit. Orders: Orders Calcium, 24 Hr Ur Today M81.0 - Age-related osteoporosis without current pathological fracture Immunofixation, Random Urine Today M81.0 - Age-related osteoporosis without current pathological fracture Creatinine, 24 Hr Group Today M81.0 - Age-related osteoporosis without current pathological fracture Phosphorus Today M81.0 - Age-related osteoporosis without current pathological fracture Protein Electrophoresis, Serum Today M81.0 - Age-related osteoporosis without current pathological fracture Coding Level of Care Code New Pt Level 4 (48715) Diagnoses Osteoporosis M81.0
[2024-10-09 08:00] VITALS: BP 126/62; PULSE 50; O2SAT 96; BMI 23.6
== END 2024-10-09 08:50 | disposition home or self-care (01) ==
LOC: HO.ENCR 07:52
PROVIDERS: Visit Provider Internal Medicine Endocrinology, Diabetes & Metabolism
DX: M81.0 Age-related osteoporosis without current pathological fracture (principal)
CPT/HCPCS: 99204

== ENCOUNTER → 2024-10-09 07:52 | Outpatient (BNVA) | payer MEDICARE, SELFPAY | PROVIDERS: Visit Provider Internal Medicine Endocrinology, Diabetes & Metabolism | DX: M81.0 Age-related osteoporosis without current pathological fracture (principal) | CPT/HCPCS: 99202 ==

== ENCOUNTER 2024-12-06 08:19 | Outpatient (AMB) | payer MEDICARE, SELFPAY ==
--- NOTE | 2024-12-06 08:23 | A.OFFPC_ITS ---
Vital Signs 12/06/24 08:24 Height 5 ft 6.42 in Weight 150 lb BMI 23.9 BP 130/64 Blood Pressure Location Lt brachial Position Sitting Pulse 71 Pulse Source Pulse Oximeter Temp 97.5 F Temp Source Temporal Artery Scan Pulse Oximetry (%) 98 Oxygen Delivery Method Room Air Intake Visit Reasons: f/u HTN and CAD rescheduled from 11/11 Intake Note: Patient is here to follow up on HTN, CAD. 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 Accompanied by: Self / Same As Patient Allergies sulfur Allergy (Unknown, Verified 12/06/24 08:50) hives Medication List - Last Reconciled 12/06/24 by Sonia Quiñonez PA-C amlodipine 10 mg PO DAILY 90 days aspirin 81 mg PO DAILY atorvastatin 80 mg PO DAILY oxybutynin chloride ER 10 mg PO DAILY 90 days triamcinolone acetonide 0.1% 1 appl topical BID vitamin B comp and C no.3 (B Complex Plus Vitamin C) 1 cap PO DAILY Tobacco use date assessed: 12/06/24 Fall risk assessment: No Falls in past year Last assessed Fall Risk: 12/06/24 Dental Screening Dental Screen Date: 12/06/24 Did you have a dental visit in the last 12 months?: Yes Did you have a dental problem in the last 6 months where you did not have access to dental care?: No Was dental information given to patient?: Patient has dentist HPI f/u HTN and CAD rescheduled from 11/11 HPI Details 79-year-old with past medical history of overactive bladder, hypercholesterolemia, osteoporosis, impaired glucose tolerance, coronary artery disease, hypertension last seen 08/2024 coming in for follow up. In review of the notes, patient was seen by endocrinology for maintain dietary calcium of 1200 mg per day and continue on vitamin-D supplementation. Further blood work in urine testing was ordered. Presenting with a follow-up for hypertension management and evaluation of leg and feet swelling. Essential Hypertension is managed with medication and noted lifestyle changes, specifically reduced caffeine intake, with improved blood pressure readings maintaining around 130/64 mmHg. Peripheral edema is experienced with swelling most pronounced at the end of the day. The recent increase in deskbound work and sedentary time is considered contributory. Patient denies any significant change in dietary habits, other than decreased caffeine intake; physical activity includes walking approximately a mile daily, constrained by work fatigue. [facility] Medical History Shortness of breath on exertion Hypertension Hypercalcemia Atrial arrhythmia Chest pain Vitamin B12 deficiency Impacted cerumen of right ear TSH elevation CVA (cerebral vascular accident) Anemia Left renal mass Osteoporosis Hypercholesterolemia Surgical History Hx of colonoscopy History of cardiac cath History of ankle surgery History of bunionectomy History of breast implant History of tubal ligation Family History Father Colon cancer Mother CHF (congestive heart failure) Daughter In good health Son In good health Sister In good health Sister In good health Sister In good health Brother In good health Social History Housing: House Alcohol intake: current Alcohol intake frequency: a few times a month Patient Tobacco Use Status: Never used Tobacco e-Cigarette/Vaping Use: Never Used Second Hand Smoke Exposure: No service: No Current occupational status: retired Cognitive needs: No Hearing needs: Yes Vision needs: Yes Questionnaire PHQ-9 Over the last 2 weeks, how often have you been bothered by any of the following problems? 1. Little interest or pleasure in doing things: not at all 2. Feeling down, depressed, or hopeless: not at all 3. Trouble falling or staying asleep, or sleeping too much: not at all 4. Feeling tired or having little energy: not at all 5. Poor appetite or overeating: not at all 6. Feeling bad about yourself - or that you are a failure or have let yourself or your family down: not at all 7. Trouble concentrating on things, such as reading the newspaper or watching television: not at all 8. Moving or speaking so slowly that other people could have noticed. Or the opposite - being so fidgety or restless that you have been moving around a lot more than usual: not at all 9. Thoughts that you would be better off or of hurting yourself in some way: not at all Total score: 0 Depression Screening Interpretation: Negative Depression Screening Done: Yes Source: Developed by Drs. Steven Omer, Lavonne Mattson, Dom Aguilar and colleagues, with an educational cat from [employer]. Thrive Questionnaire Date Thrive assessed: 08/12/24 I am a: Patient What is your living situation today?: I choose not to answer this question Within the past 12 months, did the food you bought not last and you didn't have the money to get more?: I choose not to answer this question Within the past 12 months, did you worry whether your food would run out before you got money to buy more?: I choose not to answer this question Do you have trouble paying for medicines?: I choose not to answer this question Do you have trouble getting transportation to medical appointments?: I choose not to answer this question Do you have trouble paying your heating and electricity bill?: I choose not to answer this question Do you have trouble taking care of your child, family member or friend?: I choose not to answer this question Do you have trouble with day-to-day activities such as bathing, preparing meals, shopping, managing finances, etc.?: I choose not to answer this question Are you currently unemployed and looking for a job?: I choose not to answer this question Are you interested in more education?: I choose not to answer this question Please select the resources that you would like help with: None Currently or been in a relationship where the following occur: I choose not to answer THRIVE Score: 0 AUDIT C Alcohol Use Questionnaire (AUDIT-C) 1. How often do you have a drink containing alcohol?: Never Total Score: 0 TONY-7 AMB Questionnaire TONY-7 Date TONY - 7 assessed: 08/12/24 Feeling nervous, anxious, or on edge: 0 = Not at all Not being able to stop or control worryin = Not at all Worrying too much about different things: 0 = Not at all Trouble relaxin = Not at all Being so restless that it is hard to sit still: 0 = Not at all Becoming easily annoyed or irritable: 0 = Not at all Feeling afraid as if something awful might happen: 0 = Not at all Total TONY-7 score (0-4 normal; 5-9 mild; 10-14 moderate; 15-21 severe): 0 Source: Developed by Lavonne Oliva.W. Srinivasan, Dom Aguilar and colleagues, with an educational cat from [employer]. Review of Systems Const Denies body aches, Denies chills, Denies fever(s), Denies headache(s) and Denies poor appetite Eyes Reports no additional complaints ENT Denies dysphagia, Denies dizziness, Denies headache(s) and Denies odynophagia Card Denies chest pain, Denies syncope, Denies edema, Denies irregular heart rhythm, Denies lightheadedness and Denies dyspnea Resp Denies cough and Denies dyspnea GI Denies abdominal pain, Denies constipation, Denies dysphagia, Denies diarrhea, Denies nausea, Denies odynophagia and Denies vomiting Reports no additional complaints Musc Reports no additional complaints and Denies abnormal gait Skin/Breast Reports system reviewed and no additional complaints, except as documented Neuro Denies abnormal gait, Denies dizziness, Denies syncope and Denies headache(s) Psych Reports no additional complaints Physical exam (Primary Care) Vital Signs: Last Vital Signs Temp 97.5 F 12/06/24 08:24 Pulse 71 12/06/24 08:24 BP 130/64 12/06/24 08:24 Pulse Ox 98 12/06/24 08:24 Oxygen Delivery Method Room Air 12/06/24 08:24 BMI result Body Mass Index 23.9 Tobacco/Smoking Status: Tobacco use Status Tobacco use date assessed 12/06/24 12/06/24 08:29 Patient Tobacco Use Status Never used Tobacco 12/06/24 08:29 e-Cigarette/Vaping Use Never Used 12/06/24 08:29 PHQ-9: PHQ-9 Score PHQ-9: Total score 0 12/06/24 08:29 Depression Screening Interpretation: Negative Thrive Assessment: Date of Thrive Assessment Date Thrive assessed 08/12/24 12/06/24 08:29 Currently or been in a relationship where the following occur: I choose not to answer Const General: cooperative, healthy appearing, comfortable and no acute distress Orientation/consciousness: patient oriented x3 HENMT Head: Yes normocephalic Ears: hearing grossly normal bilaterally General nose exam: Normal external nose present Eyes General: appearance normal, both eyes and all related structures Conjunctivae: conjunctivae normal Neck Neck: Yes full ROM and Yes no lymphadenopathy Resp Effort & Inspection: normal respiratory effort Auscultation: clear to auscultation bilaterally, no crackles, no rales, no rhonchi and no wheezes Cardio Rate: regular rate Rhythm: regular rhythm Skin General skin exam: no rashes or lesions noted Neuro General: patient oriented x3 Gait exam (Neuro): Normal gait present Extrem Other: No tenderness to palpation of bilateral calves. No redness, warmth, swelling of bilateral lower extremities General: Yes normal to inspection, Yes full ROM and No edema Psych Affect: normal affect Attitude: cooperative Insight: Good insight present (Psych) Judgement: Good judgement present (Psych) Coding Level of Care Code Est Pt Level 3 (46141) Diagnoses Essential hypertension I10 Hypertension type: essential hypertension Overactive bladder N32.81 Hypercholesterolemia E78.00 Osteoporosis M81.0 Impaired fasting blood sugar R73.01 Coronary artery arteriosclerosis I25.10 Lower extremity edema R60.0 Assessment & Plan Assessment & Plan (1) Hypertension: Code(s): I10 - Essential (primary) hypertension Category: Medical Qualifiers: Hypertension type: essential hypertension Qualified Code(s): I10 - Essential (primary) hypertension Plan: Continue on current blood pressure medication. Avoid salt intake and encourage healthy diet and regular exercise. (2) Overactive bladder: Code(s): N32.81 - Overactive bladder Category: Medical Plan: Recently saw Urology advised to undergo renal mass protocol. Continue to follow with urologist currently on oxybutynin 10 mg (3) Hypercholesterolemia: Code(s): E78.00 - Pure hypercholesterolemia, unspecified Category: Medical Plan: Avoid foods that are high in cholesterol such as red meat, fried foods, eggs and baked goods. Triglyceride goal of less than 150 and LDL goal of less than 70. Continue on atorvastatin 80 (4) Osteoporosis: Comment: July 2019 Code(s): M81.0 - Age-related osteoporosis without current pathological fracture Category: Medical Plan: Currently following with Dr. Patel from endocrinology for secondary workup. (5) Impaired fasting blood sugar: Code(s): R73.01 - Impaired fasting glucose Category: Medical Plan: Decrease the amount of carbohydrates such as pasta, bread, rice, and potatoes and limit the amount of sweets. Although fruits are generally healthy they should be eaten in moderation as they are still high in sugar. (6) Coronary artery arteriosclerosis: Comment: Nonobstructive Code(s): I25.10 - Atherosclerotic heart disease of [place] coronary artery without angina pectoris Category: Medical Plan: Currently following with Cardiology stable on current medication regimen. Advised good control of blood pressure, cholesterol and blood sugars (7) Lower extremity edema: Code(s): R60.0 - Localized edema Category: Medical Plan: Patient reporting bilateral lower leg swelling worsened the end of the day. Last echocardiogram was normal and kidney function was normal on last labs. Patient is clinically euvolemic today on exam and denying symptoms of shortness of breath. There is no signs of edema on exam today, no leg swelling, pain, redness or warmth. Discussed leg elevation, compression stockings and exercise as tolerated. Plan The patient's current antihypertensive regimen appears effective with improved blood pressure readings; continued use and lifestyle adjustments such as reduced caffeine consumption seem beneficial. Peripheral edema management includes lifestyle modification advice?promoting increased physical activity during work hours, elevating legs when feasible, and potential use of compression stockings?acknowledging its likely connection to prolonged sitting. 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 This note was constructed using voice recognition software. While every effort has been made to ensure accuracy and dipper fish, still areas may have been included sometimes these areas may affect the content or meeting of the given symptoms. Total time spent caring for the patient today was 30 minutes. This includes time spent before the visit reviewing the chart, time spent during the visit, and time spent after the visit and documentation.
[2024-12-06 08:24] VITALS: BP 130/64; PULSE 71; TEMP 36.4; O2SAT 98; BMI 23.9
== END 2024-12-06 09:05 | disposition home or self-care (01) ==
LOC: HO.HMCH 08:20
PROVIDERS: PCP Internal Medicine
DX: I10 Essential (primary) hypertension (principal); N32.81 Overactive bladder; E78.00 Pure hypercholesterolemia, unspecified; M81.0 Age-related osteoporosis without current pathological fracture; R73.01 Impaired fasting glucose; I25.10 Atherosclerotic heart disease of native coronary artery without angina pectoris; R60.0 Localized edema

== ENCOUNTER → 2024-12-06 08:19 | Outpatient (BNVA) | payer MEDICARE, SELFPAY | PROVIDERS: PCP Internal Medicine | DX: I10 Essential (primary) hypertension (principal); I25.10 Atherosclerotic heart disease of native coronary artery without angina pectoris; N32.81 Overactive bladder; E78.00 Pure hypercholesterolemia, unspecified; M81.0 Age-related osteoporosis without current pathological fracture; R73.01 Impaired fasting glucose; R60.0 Localized edema | CPT/HCPCS: 96127; 99212 ==

== ENCOUNTER 2025-01-08 09:56 | Outpatient (REF) | payer MEDICARE, SELFPAY | END 2025-01-08 09:57 | disposition home or self-care (01) | LOC: HO.LAB 09:56 | PROVIDERS: PCP Internal Medicine | DX: N30.01 Acute cystitis with hematuria (principal); Z13.9 Encounter for screening, unspecified; Z79.82 Long term (current) use of aspirin; Z79.899 Other long term (current) drug therapy; Z98.51 Tubal ligation status | CPT/HCPCS: 81003; 87086; 87088; 87186; 99212 ==

== ENCOUNTER 2025-01-08 09:56 | Outpatient (AMB) | payer MEDICARE, SELFPAY ==
[2025-01-08 09:59] VITALS: BP 116/70; PULSE 91; TEMP 36.5; O2SAT 99; BMI 22.1
--- NOTE | 2025-01-08 09:59 | AM.OFFWIN_ITS ---
Intake Vital Signs 01/08/25 09:59 Height 5 ft 6.42 in Weight 139 lb BMI 22.1 BP 116/70 Blood Pressure Location Lt brachial Position Sitting Pulse 91 Pulse Source Pulse Oximeter Temp 97.7 F Pulse Oximetry (%) 99 Oxygen Delivery Method Room Air Intake Visit Reasons: EP ?UTI Intake Note: presents with abdominal pain, burning with peeing, chills, fever, lightheaded, dizziness, fatigue, irritability for a little over a week. Also notes legs/feet were swelling last week Patient Tobacco Use Status: Never used Tobacco Allergies sulfur Allergy (Unknown, Verified 01/08/25 10:07) hives Medication List - Last Reconciled 01/08/25 by Lien Carvajal PA-C amlodipine 10 mg PO DAILY 90 days aspirin 81 mg PO DAILY atorvastatin 80 mg PO DAILY oxybutynin chloride ER 10 mg PO DAILY 90 days triamcinolone acetonide 0.1% 1 appl topical BID vitamin B comp and C no.3 (B Complex Plus Vitamin C) 1 cap PO DAILY Do you need a note to return to daycare/school/sports/work: No HPI HPI Comments History of Present Illness Details History - The patient is a 79-year-old female pr esenting with suspected urinary tract infection. - Reports symptoms of yellow and cloudy urine, burning during urination, and incomplete bladder emptying. - Symptoms have persisted for over a wee k, with dizziness, lightheadedness, and balance issues. She has these symptoms when she gets a UTI. - Experienced a fever with Tmax 102?F 8 days ago, that has since resolved, with associated low back pain. - History of urinary tract infections, p reviously treated with cefuroxime for E. coli infection. Physical Exam General: Cooperative, healthy appearing, comfortable, no acute distress and well developed Orientation: Patient oriented x3 Limitations: No limitations Head: Normal to inspection Ears: Hearing grossly normal bilaterally Face and sinus: Normal facial exam Neck: Normal visual inspection and Yes full ROM Respiratory: Normal respiratory effort and able to speak in complete sentences. Skin: No rashes or lesions noted Neuro: Patient oriented x3, gait normal [facility] Medical History Shortness of breath on exertion Hypertension Hypercalcemia Atrial arrhythmia Chest pain Vitamin B12 deficiency Impacted cerumen of right ear TSH elevation CVA (cerebral vascular accident) Anemia Left renal mass Osteoporosis Hypercholesterolemia Surgical History Hx of colonoscopy History of cardiac cath History of ankle surgery History of bunionectomy History of breast implant History of tubal ligation Family History Father Colon cancer Mother CHF (congestive heart failure) Daughter In good health Son In good health Sister In good health Sister In good health Sister In good health Brother In good health Social History Housing: House Alcohol intake: current Alcohol intake frequency: a few times a month Patient Tobacco Use Status: Never used Tobacco e-Cigarette/Vaping Use: Never Used Second Hand Smoke Exposure: No service: No Current occupational status: retired Cognitive needs: No Hearing needs: Yes Vision needs: Yes Review of Systems Const All systems reviewed & are unremarkable except as noted in HPI and below Physical Exam Vital Signs: Last Vital Signs Temp 97.7 F 01/08/25 09:59 Pulse 91 01/08/25 09:59 BP 116/70 01/08/25 09:59 Pulse Ox 99 01/08/25 09:59 Oxygen Delivery Method Room Air 01/08/25 09:59 BMI result Body Mass Index 22.1 Assessment & Plan Assessment & Plan (1) UTI (urinary tract infection): Code(s): N39.0 - Urinary tract infection, site not specified Qualifiers: Urinary tract infection type: acute cystitis Hematuria presence: with hematuria Qualified Code(s): N30.01 - Acute cystitis with hematuria Plan: Patient was informed and verbally consented to the use of an ambient scribe for clinic note documentation during this visit. 1. Urinary Tract Infection (Uti) - UA 3+ leuks, positive nitrites, + protein and + blood. Will treat UTI. - Prescribe cefuroxime, to be taken twice daily for five days. - Conduct urine culture if possible, to confirm infection and guide treatment. Orders: Orders Urine Culture Today N39.0 - Urinary tract infection, site not specified Medications: New cefuroxime axetil 500 mg PO Q12H 10 tabs 0RF Coding Level of Care Code Est Pt Level 3 (29364) Diagnoses Acute cystitis with hematuria N30.01 Urinary tract infection type: acute cystitis Hematuria presence: with hematuria
== END 2025-01-08 10:20 | disposition home or self-care (01) ==
PROVIDERS: PCP Internal Medicine; Visit Provider Physician Assistant
DX: N30.01 Acute cystitis with hematuria (principal); Z13.9 Encounter for screening, unspecified

== ENCOUNTER 2025-01-21 09:26 | Outpatient (REF) | payer MEDICARE, SELFPAY ==
[2025-01-21 13:42] LABS: Hematocrit 35.4 % (37.0-47.0); Hemoglobin 11.2 g/dl (12.0-16.0); Mean Corpuscular HGB Conc 31.6 g/dl (31.0-35.0); Mean Corpuscular Hemoglobin 28.1 pg (27.0-33.0); Mean Corpuscular Volume 88.9 fL (80.0-98.0); NRBC Abs Auto 0.000 X10*3/uL (0.0-0.012); NRBC Pct Auto 0.0 /100WBC (0.0-0.2); Platelet Count 235 X10*3/uL (160-400); Red Blood Count 3.98 X10*6/uL (4.20-5.50); White Blood Count 7.9 X10*3/uL (4.8-10.8)
[2025-01-21 13:54] LABS: Hemoglobin A1C 108.2329 umol/L; Total Hemoglobin (HGBA1C) 2988.9068 umol/L
[2025-01-21 14:03] LABS: Cholesterol 132 mg/dL (<200); HDL Cholesterol 61 mg/dL (>40); Iron 53 mcg/dL (30-160); Percent Iron Saturation 20 % (15-50); Total Iron Binding Capacity 259 mcg/dL (228-428); Triglycerides 55 mg/dL (<150); Unsaturated Iron Binding 206 ug/dL
[2025-01-21 14:34] LABS: Ferritin 181 ng/mL (10-250)
[2025-01-21 14:53] LABS: Folate 14.6 ng/mL (> or = 4.0); Vitamin B12 > 2000 pg/mL (200-900)
== END 2025-01-21 09:27 | disposition home or self-care (01) ==
LOC: HO.HMGCLDS 09:26
PROVIDERS: Internal Medicine Endocrinology, Diabetes & Metabolism; PCP Internal Medicine; Visit Provider Nurse Practitioner Family
DX: N39.0 Urinary tract infection, site not specified (principal); B96.5 Pseudomonas (aeruginosa) (mallei) (pseudomallei) as the cause of diseases classified elsewhere; R39.9 Unspecified symptoms and signs involving the genitourinary system; E78.00 Pure hypercholesterolemia, unspecified; R73.01 Impaired fasting glucose; E53.8 Deficiency of other specified B group vitamins; N28.1 Cyst of kidney, acquired; M81.0 Age-related osteoporosis without current pathological fracture
CPT/HCPCS: 36415; 80061; 81003; 82607; 82728; 82746; 83036; 83540; 85027; 86335; 87086; 87088; 87186; 93005; 99212

== ENCOUNTER 2025-01-21 09:26 | Outpatient (AMB) | payer MEDICARE, SELFPAY ==
[2025-01-21 09:28] VITALS: BP 134/60; PULSE 86; TEMP 36.3; O2SAT 99; BMI 22.0
--- NOTE | 2025-01-21 09:28 | AM.OFFWIN_ITS ---
Intake Vital Signs 01/21/25 09:28 Height 5 ft 6.42 in Weight 138 lb 4 oz BMI 22.0 BP 134/60 Blood Pressure Location Lt brachial Position Sitting Pulse 86 Pulse Source Pulse Oximeter Temp 97.4 F Temp Source Oral Pulse Oximetry (%) 99 Oxygen Delivery Method Room Air Intake Visit Reasons: EP ? UTI Intake Note: Patient present urinary urgency and frequency times 3 weeks. Urine appears very cloudy Patient Tobacco Use Status: Never used Tobacco Bounty Trapper Required: No Is last menstrual period known: No Post menopausal: Yes Patient : No Allergies sulfur Allergy (Unknown, Verified 01/21/25 09:46) hives Medication List - Last Reconciled 01/21/25 by ENID Simmons- amlodipine 10 mg PO DAILY 90 days aspirin 81 mg PO DAILY atorvastatin 80 mg PO DAILY oxybutynin chloride ER 10 mg PO DAILY 90 days triamcinolone acetonide 0.1% 1 appl topical BID vitamin B comp and C no.3 (B Complex Plus Vitamin C) 1 cap PO DAILY Do you need a note to return to daycare/school/sports/work: No HPI HPI Comments History of Present Illness Details History of Present Illness - The patient is a 79-year-old female wi th complex renal cyst, anemia, OAB presenting with urinary tract infection and dizziness. - Burning and urgency started in early ; culture confirmed E. coli. - Completed cefepime antibiotics without improvement. - Reports dizziness, lightheadedness, an d fainting feelings upon standing or walking. She also feels SOB with prolonged standing. States the last time she felt this way was when she had anemia several years ago - Historical anemia with previous simila r symptoms; - Currently denies chest pain, nausea, o r vomiting. - Fever noted in early December, not recurri ng; headache described as eye strain upon waking in the AM - walk in note from 01/08/25 reviewed, UA + Culture E Coli > 100x - Uro note 04/2024 reviewed, plan for MR I for complex renal cyst 04/2025 Review of Systems - Genitourinary: Reports burning, urgenc y, cloudy urine. - Neurological: Reports dizziness, light headedness, headaches. - Constitutional: Reports feeling lighth eaded and faint. - Respiratory: Denies current chest pain , reports shortness of breath after standing. - Gastrointestinal: Denies nausea, vomit ing. Physical Exam General: Well developed, well nourished, in no acute distress. Appears stated age. Head: Normocephalic, atraumatic. Eyes: Pupils are equal, round and reactive to light and accommodation. Mild Conjunctival pallor Lungs: Clear to auscultation bilaterally. No rales, rhonchi or wheeze noted. Good air flow in all [place]. Heart: Regular rate and rhythm. No murmurs, click, rubs or gallops are noted. Abdomen: No suprapubic tenderness, no CVAT bilat Pulses: Peripheral pulses are equal and palpable bilaterally. Extremities: No clubbing, cyanosis nor edema is noted. Neuro: No deficits Psych: Mood and affect appropriate Results UA done today in the office LEUKS 3+, PRO 1+, BLOOD 3+ EKG NSR NONSPECIFIC ST ABNORMALITY, NO CHANGE FROM 07/26/24 Discussion Notes I discussed with the patient the history of the urinary tract infection and its persistence despite antibiotic treatment. The absence of improvement with cefepime despite E. coli sensitivity was noted. I highlighted the symptoms of dizziness and potential links to previous anemia. The benefits of further diagnostics, including an EKG and lab tests to evaluate anemia, were discussed. Ensured the patient understood to monitor symptoms for any exacerbation and the need for timely follow-ups with her primary care physician, Dr. Wallace, especially considering the upcoming appointment in May. Reassured the patient that results from current investigations should be available by the end of the day, allowing for prompt discussions on appropriate management following evaluation. Assessment and Plan 1. Urinary Tract Infection (UTI) - Previous treatment with cefepime; furt her evaluation needed. Urine culture to be sent 2. Dizziness and Lightheadedness - Suspected historical anemia; lab testi ng initiated. CBC, IRON, FERRITIN, B12 EKG NO CHANGES 3. Anemia suspected historically - Evaluating current anemia with lab [place] ts. 4. Headache - Eye strain type; monitoring advised. Likely will need to fu with PCP/Uro Patient Instructions - Monitor symptoms of dizziness and ligh theadedness. - If symptoms worsen or new symptoms dev elop, consult Dr. Ventura. - Await lab results and EKG for further instructions. - PT will be sent a portal message w/ re sults Consent Patient was informed and verbally consented to the use of an ambient scribe for clinic note documentation during this visit. Total time spent caring for the patient today was 45 minutes. This includes time spent before the visit reviewing the chart, time spent during the visit, and time spent after the visit on documentation, reviewing laboratory results, diagnostic imaging, medications, performing a medically necessary evaluation, counseling on diagnoses, care coordination, ordering appropriate tests, ordering appropriate medications, review of tests performed by other providers, reporting test results with the patient, communication with other healthcare providers. [facility] Medical History Shortness of breath on exertion Hypertension Hypercalcemia Atrial arrhythmia Chest pain Vitamin B12 deficiency Impacted cerumen of right ear TSH elevation CVA (cerebral vascular accident) Anemia Left renal mass Osteoporosis Hypercholesterolemia Surgical History Hx of colonoscopy History of cardiac cath History of ankle surgery History of bunionectomy History of breast implant History of tubal ligation Family History Father Colon cancer Mother CHF (congestive heart failure) Daughter In good health Son In good health Sister In good health Sister In good health Sister In good health Brother In good health Social History Housing: House Alcohol intake: current Alcohol intake frequency: a few times a month Patient Tobacco Use Status: Never used Tobacco e-Cigarette/Vaping Use: Never Used Second Hand Smoke Exposure: No Patient : No service: No Current occupational status: retired Cognitive needs: No Hearing needs: Yes Vision needs: Yes Physical Exam Vital Signs: Last Vital Signs Temp 97.4 F 01/21/25 09:28 Pulse 86 01/21/25 09:28 BP 134/60 01/21/25 09:28 Pulse Ox 99 01/21/25 09:28 Oxygen Delivery Method Room Air 01/21/25 09:28 BMI result Body Mass Index 22.0 Office Procedures EKG [id number], Complete Assessment & Plan Assessment & Plan (1) Pre-syncope: Code(s): R55 - Syncope and collapse (2) Complex renal cyst: Code(s): N28.1 - Cyst of kidney, acquired (3) Lower urinary tract symptoms: Code(s): R39.9 - Unspecified symptoms and signs involving the genitourinary system (4) Vitamin B12 deficiency: Comment: 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 Code(s): E53.8 - Deficiency of other specified B group vitamins Plan , Orders: Orders Complete Blood Count no Diff Today E53.8 - Deficiency of other specified B group vitamins, N28.1 - Cyst of kidney, acquired IRON PROFILE Today E53.8 - Deficiency of other specified B group vitamins, N28.1 - Cyst of kidney, acquired AMB Urinalysis Automated Today Z13.9 - Encounter for screening, unspecified Ferritin Today E53.8 - Deficiency of other specified B group vitamins, N28.1 - Cyst of kidney, acquired Vitamin B12 and Folate Today E53.8 - Deficiency of other specified B group vitamins, N28.1 - Cyst of kidney, acquired Urine Culture Today R39.9 - Unspecified symptoms and signs involving the genitourinary system Coding Level of Care Code Est Pt Level 5 (97048) Diagnoses Pre-syncope R55 Complex renal cyst N28.1 Lower urinary tract symptoms R39.9 Vitamin B12 deficiency E53.8 CPT Codes EKG - CPT: 81808-[id number], Complete ([id number])
--- OUTSIDE RECORDS SUMMARY | 2025-01-21 09:59 | XMS_ITS | Clinical Summary ---
Author Organization [facility] Address [address] [place] [id number] Phone Care Team Providers Care Pretzel Cooker Name Role Phone Pcp, Unknown Primary Care Provider Unavailabl e Allergies Active Allergy Reactions Criticality Noted Date Comments Sulfa (Sulfonamide Antibiotics) Anaphylaxis High Medications atorvastatin (LIPITOR) 80 MG tablet Take 80 mg by mouth daily. Active amLODIPine (NORVASC) 2.5 MG tablet Take 2.5 mg by mouth daily. Active oxybutynin (OXYTROL) 3.9 mg/[address] 1 patch onto the skin 2 (two) times a week. Active nitrofurantoin (MACROBID) 100 MG capsuleIndicati ons:Urinary tract infection Take 1 capsule (100 mg total) by mouth 2 (two) times a day. One capsule 2 times daily for 5 days. 10 capsule 01/29/2019 Active alendronate (FOSAMAX) 70 MG tabletIndicatio ns:Medication refill TAKE 1 TABLET WEEKLY IN MORNING FULL GLASS OF WATER ON EMPTY STOMACH DO NOT LIE DOWN FOR 30 MIN 12 tablet 2 05/20/2019 Active Active Problems Problem Noted Date Diagnosed Date Age-related osteoporosis wit hout current pathological fracture 04/11/2018 Overview (05/02/2019): started fosamax 04/2018, DXA 03/28/18 showed osteoporosis at both hips and lumbar spine Pyelonephritis 04/11/2018 Lichen sclerosus et atrophicus of the vulva 10/03 Assessment & Plan (10/31/2017 12:36 AM EDT): I suspect LS based on the exam findings and urged pt to schedule gynecologic evaluation as this is progressive condition which carries increased risk of vulvar SCC. She declines referral at this time as asymptomatic. She discontinued Pap smear screenings in her 40s and we had discussed potentially obtaining a last Pap smear today, however given the severity of her vulvar findings I reviewed I would prefer this to be done with paper bag maker. History of transient ischemic attack (TIA) 09/28 Benign essential hypertension 09/28/2017 Assessment & Plan (01/29/2019 5:34 PM EDT): Controlled. Mixed stress and urge urinary incontinence 09/28 Assessment & Plan (01/29/2019 5:34 PM EDT): Urge urology consultation. New referral is made. Her preliminary urine culture does show e.coli, will start another course of macrobid, close follow up if sx not improving. Sensorineural hearing loss ( SNHL) of left ear with restricted hearing of right ear 09/28/2017 Immunizations Immunization Administration Dates Next Due COVID-19 (Pre-04/24) Moderna Vaccine, mRNA, PF 0 12/03/2020,11/04/2020 Family History Medical History Relation Comments Colon cancer Father age 75 Coronary artery disease Mother Hypertension Mother Peripheral Arterial Disease Mother Relation Status Comments Father Mother Alive Social History Tobacco Use Types Packs/Day Years Used Date Smoking Tobacco: Never Smokeless Tobacco: Never Tobacco Cessation:Counseling Given: No Alcohol Use Standard Drinks/Week Comments Yes 0 (1 standard drink = 0.6 oz pur e alcohol) less than once a week Education Answer Date Recorded Are you interested in more education? Not on troy e 10/28/2022 Are you concerned about learning? Not on file 10/28/2022 No 10/28/2022 No 10/28/2022 Digital Access Answer Date Recorded No 11/26/2022 No 11/26/2022 No 11/26/2022 Reliable internet access at home? Not on file 11/26/2022 Device with a working camera? Not on file Comments Unknown Sex and Gender Information Value Date Recorded Sex Assigned at Not on file Legal Sex Female 10:06 PM EDT Gender Identity Not on file Sexual Orientation Not on file Last Filed Vital Signs Vital Sign Reading Time Taken Comments Blood Pressure 138/84 01/28/2019 4:25 PM EDT Pulse 84 01/28/2019 4:25 PM EDT Temperature 36.8 C (98.2 F) 01/28/2019 4:25 PM EDT Respiratory Rate - - Oxygen Saturation 98% 01/28/2019 4:25 PM EDT Inhaled Oxygen Concentration - - Weight 69.9 kg (154 lb) 01/28/2019 4:25 PM EDT Height 170.2 cm (5' 7 ) 09/17/2018 3:51 PM EDT Body Mass Index 24.12 09/17/2018 3:51 PM EDT Plan of Treatment Health Maintenance Due Date Last Done Comments Adult Td,Tdap Booster 1945 BLOOD PRESSURE 1945 HEPATITIS C SCREENING 1965 COLOGUARD 1992 FIT TEST 1992 FOBT 1992 SIGMOIDOSCOPY 1992 VIRTUAL COLONOSCOPY 1992 PNEUMOCOCCAL VACCINES (50+ years) (1 of 1 - PCV) 1997 ZOSTER VACCINES (1 of 2) 1997 DEPRESSION SCREENING 09/28/2018 09/28/2017 RSV VACCINE (1 - 1-dose 75+ series) 2022 LIPID PANEL 10/25/2022 10/25/2017 COLONOSCOPY 03/07/2023 03/07/2018 COLORECTAL CANCER SCREENING 03/07/2023 COVID-19 VACCINE (3 - 2023-2 5 season) 2024 12/03/2020, 11/04/2020 OSTEOPOROSIS SCREENING INITI AL (ONE-TIME) Completed 03/28/2018 SMOKING STATUS SCREENING (On ce After 26 Yrs) Completed 01/28/2019 HEPATITIS A VACCINES Aged Out No long er eligible based on patient's age to complete this topic HIB VACCINES Aged Out No longer eligi ble based on patient's age to complete this topic MENINGOCOCCAL VACCINES (ACWY) Aged Out No longer eligible based on patient's age to complete this topic MENINGOCOCCAL VACCINES (B) Aged Out N o longer eligible based on patient's age to complete this topic Medical Devices Not on file Procedures Procedure Name Priority Date/Time Associated Diagnosis Comments BD DXA AXIAL (SPINE) WITH HIP Routine 03/28/2018 2:48 PM EDT Estrogen deficiency HM COLONOSCOPY FOR RESULT ENTRY ONLY Routine 03/07/2018 LIPID PANEL Routine 10/25/2017 8:08 AM EDT History of transient ischemic attack (TIA) from Last 3 Months or Most Recently Relevant to Health Maintenance Results * BD DXA AXIAL (SPINE) WITH HIP (03/28/2018 2:48 PM EDT) Anatomical Region Laterality Modality Bone Density Bone Density 03/28/2018 7:18 PM EDT Impressions 03/28/2018 7:20 PM EDT Findings consistent with osteoporosis. POS -[id number] Narrative 03/28/2018 7:20 PM EDT This is a 72-year-old postmenopausal female with a history of estrogen deficiency. No prior studies for comparison.. Evaluation of the lumbar spine and both hips is obtained and appears technically adequate. The lumbar spine from L1 through L4 discloses a total bone mineral density of 0.775 g/cm2 with a T-score of -2.5. Z score -0.3. This is in the osteoporosis range. The right hip has a total bone mineral density of 0.592 g/cm2 with a T-score of -2.9. Z score -1.3. This is in the osteoporosis range. The left hip has a total bone mineral density of 0.625 g/cm2 for a T-score of - 2.6. Z score -1.1. This is in the osteoporosis range. Lateral instant vertebral imaging is no performed. Procedure Note Attila Woodward MD - 03/28/2018 This is a 72-year-old postmenopausal female with a history of estrogendeficiency. No prior studies for comparison.. Evaluation of the lumbar spine and both hips is obtained and appearstechnically adequate. The lumbar spine from L1 through L4 discloses a total bone mineral densityof 0.775 g/cm2 with a T-score of -2.5. Z score -0.3. This is in theosteoporosis range. The right hip has a total bone mineral density of 0.592 g/cm2 with aT-score of - 2.9. Z score -1.3. This is in the osteoporosis range. The left hip has a total bone mineral density of 0.625 g/cm2 for a T-scoreof - 2.6. Z score -1.1. This is in the osteoporosis range. Lateral instant vertebral imaging is no performed. IMPRESSION: Findings consistent with osteoporosis. POS -[id number] Khadar Marte MD IMG BD BONE DENSITY DEXA Final Result * COLONOSCOPY FOR RESULT ENTRY ONLY (03/07/2018) Historical Provider HEALTH MAINTENANCE Final Result * (ABNORMAL) Lipid panel (10/25/2017 8:08 AM EDT) HDL 70 mg/dL [facility] Comment: Interpretation: Risk Level Females Decreased >55mg/dL Average 50-55 mg/dL Increased <50 mg/dL CHOLESTEROL 149 0 - 240 mg/dL [facility] TRIGLYCERIDES 54 30 - 160 mg/dL [facility] LDL 68 50 - 129 mg/dL [facility] Comment: LDL levels in terms of risk for coronary heart disease: <100 mg/dL: Optimal 100-129 mg/dL: Near or above optimal 130-159 mg/dL: Borderline high 160-189 mg/dL: High >190 mg/dL: Very High CARDIAC RISK RATIO 2.1(L) 3.3 - 4.4 C [facility] Blood 10/25/2017 8:08 AM EDT 10/25/2017 8:14 AM EDT Chelo Nobles ADMINISTRATIVE SERVICES ASSISTANT LAB BLOOD ORDERABLES Final Re sult [facility] [address] [place] [address] from Last 3 Months or Most Recently Relevant to Health Maintenance [place] [address] [place] [id number] MEDICARE PPO [address] [place] [place] [id number] MED[place]ARE PPO BL[address] [place] [place] [id number] [address] [place] [place] [id number] MEDICARE PPO BLUE REPLACEMENT MEDICARE PPO BLUE [place] [place] [id number] MEDICARE PPO BLUE REPLACEMENT MEDICARE PPO BLUE REPLACEMENT MEDICARE PPO BLUE [place] [address] [place] [id number] MEDICARE PPO BLUE REPLACEMENT Care Teams Pretzel Cooker Relationship Specialty Start Date End Date Pcp, Unknown PCP - General 02/28/22 Additional Source Comments The information contained in this document represents components of the legal health record. It is not the complete legal health record.[facility]
== END 2025-01-21 10:54 | disposition home or self-care (01) ==
PROVIDERS: PCP Internal Medicine; Visit Provider Nurse Practitioner Family
DX: R55 Syncope and collapse (principal); N28.1 Cyst of kidney, acquired; R39.9 Unspecified symptoms and signs involving the genitourinary system; E53.8 Deficiency of other specified B group vitamins; Z13.9 Encounter for screening, unspecified

== ENCOUNTER 2025-02-11 07:55 | Outpatient (AMB) | payer MEDICARE, SELFPAY ==
--- OUTSIDE RECORDS SUMMARY | 2025-02-11 07:59 | XMS_ITS | Clinical Summary ---
Author Organization [facility] Address [address] [place] [id number] Phone Care Team Providers Care Set Making Machine Operator Name Role Phone Pcp, Unknown Primary Care [...] would prefer this to be done with industrial manufacturing technician. History of transient ischemic attack (TIA) 09/28 [...] PM EDT Findings consistent with osteoporosis. POS -[id number] Narrative 03/28/2018 7:20 PM EDT This is [...] performed. IMPRESSION: Findings consistent with osteoporosis. POS -[id number] Khadar Marte MD IMG BD BONE DENSITY DEXA Final Result * COLONOSCOPY FOR RESULT ENTRY ONLY (03/07/2018) Historical Provider HEALTH MAINTENANCE Final Result * (ABNORMAL) Lipid panel (10/25/2017 8:08 AM EDT) HDL 70 mg/dL [facility] Comment: Interpretation: Risk Level Females Decreased >55mg/dL Average 50-55 mg/dL Increased <50 mg/dL CHOLESTEROL 149 0 - 240 mg/dL [facility] TRIGLYCERIDES 54 30 - 160 mg/dL [facility] LDL 68 50 - 129 mg/dL [facility] Comment: LDL levels in terms of risk for coronary heart disease: <100 mg/dL: Optimal 100-129 mg/dL: Near or above optimal 130-159 mg/dL: Borderline high 160-189 mg/dL: High >190 mg/dL: Very High CARDIAC RISK RATIO 2.1(L) 3.3 - 4.4 C [facility] Blood 10/25/2017 8:08 AM EDT 10/25/2017 8:14 AM EDT Chelo Nobles DRYING EQUIPMENT OPERATOR LAB BLOOD ORDERABLES Final Re sult [facility] [address] [place] [address] from Last 3 Months or Most Recently Relevant to Health Maintenance [place] [address] [place] [id number] [address] [place] [address] [place] [address] MEDICARE PPO [place] [address] [place] [address] MED[address]ARE PPO [place] [address] [place] [address] MEDICARE PPO BLUE REPLACEMENT MEDICARE PPO BLUE [place] [address] [place] [address] MEDICARE PPO BLUE REPLACEMENT MEDICARE PPO BLUE REPLACEMENT MEDICARE PPO [place] [address] [place] [address] MEDICARE PPO BLUE REPLACEMENT Care Teams Set Making Machine Operator Relationship Specialty Start Date End Date Pcp, Unknown PCP - General 02/28/22 Additional Source Comments The information contained in this document represents components of the legal health record. It is not the complete legal health record.[facility]
[2025-02-11 08:04] VITALS: BP 116/58; PULSE 89; O2SAT 99; BMI 22.2
--- NOTE | 2025-02-11 08:04 | A.OFFVIS_ITS ---
Vital Signs 02/11/25 08:04 Height 5 ft 6.42 in Weight 139 lb 8.842 oz BMI 22.2 BP 116/58 L Blood Pressure Location Rt brachial Position Sitting Pulse 89 Pulse Source Pulse Oximeter Pulse Oximetry (%) 99 Oxygen Delivery Method Room Air Intake Visit Reasons: Osteoporosis Intake Note: Patient present today for Osteoporosis follow up. Maintenance Representative Required: No Accompanied by: Self / Same As Patient Allergies sulfur Allergy (Unknown, Verified 02/11/25 08:05) hives Medication List - Last Reconciled 02/11/25 by Steven Patel MD amlodipine 10 mg PO DAILY 90 days aspirin 81 mg PO DAILY atorvastatin 80 mg PO DAILY ciprofloxacin HCl 500 mg PO BID oxybutynin chloride ER 10 mg PO DAILY 90 days triamcinolone acetonide 0.1% 1 appl topical BID vitamin B comp and C no.3 (B Complex Plus Vitamin C) 1 cap PO DAILY HPI Comments Details: The patient is a 79-year-old female presenting for the evaluation and management of osteoporosis. Diagnosed approximately four to five years ago, she has not pursued additional consults or treatments beyond her initial diagnosis. She reports no history of fractures common to osteoporosis, though she has experienced notable height loss, traditionally an indicator of potential vertebral compression fractures. A family history is significant for osteoporosis in both her sisters and a hip fracture in her mother. Her menstrual and menopausal history was uneventful with no need for supplemental estrogen therapy. The patient engages in regular weight-bearing exercises, which include pounding barbells around four or five times a week. Her diet consists of calcium-rich aviva ds such as cheese, yogurt, fruits, ice cream, and certain fish. Despite taking vitamin D with some calcium supplementation, she is unable to specify their precise dosages. There is no record of smoking or substantial alcohol consumption. Of relevance is her history of coronary artery disease, a consideration in assessing medication options, as certain medications to treat osteoporosis may have cardiovascular implications. First diagnosed in 4-5 yrs ago.Never seen specialist before Not Received treatment in the past No history of pathologic fracture or ONJ. Has several servings of dietary calcium per day in the form of cheese, yogurt, salmon, ice cream . Takes Calcium supplement ? mg daily in divided doses. Takes ? IU of Vitamin D daily. Denies ever using PPI, anticoagulant, antiepileptic or glucocorticoid medication. Does weight bearing exercise 4-5 days per week in the form of light weight lifting . 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 age - nl mense Denies history of Kidney stones: Has family history of Osteoporosis in sisters and mom had hip fracture. UTD on dental cleanings and sees dentist every 6 months. No planned upcoming dental work or extractions. No tabacco use or heavy ETOH use DXA dated 09/20/24: FINDINGS: The bone mineral density of the lumbar spine is 0.840 with a T-score of -2.8, and a Z-score of -1.1. This is indicative of osteoporosis. This represents a BMD change of 5.9% compared to the prior exam. This is statistically significant. The bone mineral density of the left total hip is 0.633 with a T-score of -3.0, and a Z-score of -1.2. This is indicative of osteoporosis. This represents a BMD change of -2.3% compared to the prior exam. This is not statistically significant. The bone mineral density of the left femoral neck is 0.637 with a T-score of -2.9, and a Z-score of -0.9. This is indicative of osteoporosis. This represents a BMD change of -3.2% compared to the prior exam. FRACTURE RISK: The FRAX index suggests a ten year probability of major osteoporotic fracture of 53.4%, and of hip fracture 40.1%. MM/XR DEXA axial skeleton IMPRESSION: Based on bone mineral density, and according to World Health Organization (WHO) criteria, the diagnosis is consistent with osteoporosis. Labs: Performed part of the secondary workup enough the 24 hour urine for calcium The patient is a 79-year-old female presenting with bone density concerns and potential calcium leak. Previous tests were ordered, including blood and urine tests, but the 24-hour urine collection for calcium was not completed due to lack of communication from the lab. The patient has been taking calcium and vitamin D supplements regularly. The patient has a history of coronary artery disease, with previous catheterization revealing small blockages (40%) that did not require intervention. There is no history of fractures, but there is a risk for fractures due to bone density concerns. The patient denies any recent fractures or significant changes in health status since the last visit. [facility] Medical History Shortness of breath on exertion Hypertension Hypercalcemia Atrial arrhythmia Chest pain Vitamin B12 deficiency Impacted cerumen of right ear TSH elevation CVA (cerebral vascular accident) Anemia Left renal mass Osteoporosis Hypercholesterolemia Surgical History Hx of colonoscopy History of cardiac cath History of ankle surgery History of bunionectomy History of breast implant History of tubal ligation Family History Father Colon cancer Mother CHF (congestive heart failure) Daughter In good health Son In good health Sister In good health Sister In good health Sister In good health Brother In good health Social History Housing: House Alcohol intake: current Alcohol intake frequency: a few times a month Patient Tobacco Use Status: Never used Tobacco e-Cigarette/Vaping Use: Never Used Second Hand Smoke Exposure: No service: No Current occupational status: retired Cognitive needs: No Hearing needs: Yes Vision needs: Yes Physical Exam Vital Signs: BMI result Body Mass Index 22.2 Assessment & Plan Assessment & Plan (1) Osteoporosis: Comment: July 2019 Code(s): M81.0 - Age-related osteoporosis without current pathological fracture Category: Medical Plan: This is a 79-year-old female with a history of osteoporosis with partial secondary workup Plan is to complete the secondary workup by checking a phosphorus level, 24 hour urine for calcium and creatinine, . We will ensure 1200 mg of calcium and vitamin D3 continued supplementation. Assuming secondary workup was negative would strongly consider the use of anabolic agent like Forteo or Tymlos initially in light of the high risk of fracture followed by an anti resorptive agent. Evenity may be relatively contraindicated in light of the history of ongoing coronary artery disease. 1. Osteoporosis Osteoporosis is managed through dietary measures and supplementation, with a goal of 1200 mg of daily calcium. Testing will include 24-hour urine and blood tests, followed by a consultation in four months to determine the necessity of pharmacological therapy. 2. Coronary Artery Disease The presence of CAD requires careful selection of osteoporosis treatments to minimize potential cardiovascular risks. Anabolic therapy options are preferred, avoiding those linked to adverse cardiac effects. During the visit, I discussed the importance of completing the 24-hour urine collection for calcium and the blood test for phosphorus to evaluate the patient's bone health and risk of calcium leak. We also reviewed the patient's history of coronary artery disease, which affects the choice of osteoporosis medication due to cardiovascular considerations. I advised the patient to return in two months for follow-up and further discussion on treatment options based on the test results. - Complete the 24-hour urine collection for calcium and blood test for p hosphorus as soon as possible. - Continue taking calcium and vitamin D supplements as prescribed. - Schedule a follow-up appointment in two months to discuss test results and treatment options. T - The patient had an opportunity to ask questions regarding treatment plan. The patient expressed understanding and agreement with the above treatment plan. Patient was informed and verbally consented to the use of an ambient scribe for clinic note documentation during this visit. Coding Level of Care Code Est Pt Level 3 (03316) Diagnoses Osteoporosis M81.0
== END 2025-02-11 08:20 | disposition home or self-care (01) ==
LOC: HO.ENCR 07:56
PROVIDERS: Visit Provider Internal Medicine Endocrinology, Diabetes & Metabolism
DX: M81.0 Age-related osteoporosis without current pathological fracture (principal)
CPT/HCPCS: 99213

== ENCOUNTER → 2025-02-11 07:55 | Outpatient (BNVA) | payer MEDICARE, SELFPAY | PROVIDERS: Visit Provider Internal Medicine Endocrinology, Diabetes & Metabolism | DX: M81.0 Age-related osteoporosis without current pathological fracture (principal); I25.10 Atherosclerotic heart disease of native coronary artery without angina pectoris; E53.8 Deficiency of other specified B group vitamins; E55.9 Vitamin D deficiency, unspecified | CPT/HCPCS: 99212 ==

== ENCOUNTER 2025-04-24 15:02 | Outpatient (REF) | payer MEDICARE, SELFPAY ==
--- NOTE | ~2025-04-24 | MR_ITS ---
CLINICAL HISTORY: RENAL MASS Exam: MRI of the abdomen, including gadolinium enhanced imaging. Comparison: None. Findings: Liver is free of focal lesions and ductal dilatation. Gallbladder appears unremarkable. Spleen appears unremarkable. Pancreas and adrenal glands appear unremarkable. Left kidney reveals an upper pole nonenhancing T2 hyperintense cyst measuring up to 3.6 cm cross-sectional dimension (5; 18 and 4.1 cm oblique craniocaudad dimension (3; 7). There are very thin internal septations (Bosniak category 2). Right kidney reveals marked atrophy or hypoplasia of the lower pole (3; 9 and 17; 20). Apparent T2 hyperintensity within the hypoplastic or atrophic lower pole cortex (5; 24), could suggest history of prior hemorrhage. 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 No definable right renal lesions or masses otherwise appreciated. No free intraperitoneal fluid or retroperitoneal masses or adenopathy. Abdominal aorta is normal caliber. Bowel loops reveal no abnormal wall thickening or distention. Osseous structures reveal no destructive osseous lesions. Impression: 1. Left renal upper pole cyst measuring up to 4.1 cm, Bosniak category 2. 2. 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 No definable right renal lesions. This document has been electronically signed by: Gary Hayes MD on 04/25/2025 14:09:07
--- OUTSIDE RECORDS SUMMARY | 2025-04-24 18:56 | XMS_ITS | Encounter Summary ---
Author Organization [facility] Address [address] [place] [phone] Phone Care Team Providers Care Yard Hostler Name Role Phone Chelo Nobles Carmen [facility] Primary Care Provider [phone] Pcp, Unknown Primary Care Provider Unavailabl e Reason for Referral * Physical Therapy (Routine) - Closed Specialty Diagnoses / Procedures Referred By Jeremy levine Referred To Contact Physical Therapy Diagnoses Encounter for rehabilitation Edinson Gillis MD Phone: tel: fax: [facility] [address] [place] [address] Phone: tel: Referral ID Status Reason Start Date Expiration Date Visits Re quested Visits Authorized [id number] Closed 05/21/2019 05/21/2020 99 99 Encounter Details Date Type Department Care Team (Latest Contact Info) Description 05/21/2019 Transcribe Orders [facility] [address] [place] [address] Edinson Gillis MD [address] [place] [address] [facility] Augustine MagallonyoJASS gilman [id number] Encounter for rehabilitation (Primary Dx) Social History Tobacco Use Types Packs/Day Years Used Date Smoking Tobacco: Never Smokeless Tobacco: Never Alcohol Use Standard Drinks/Week Comments Yes 0 (1 standard drink = 0.6 oz pur e alcohol) less than once a week Comments Unknown Sex and Gender Information Value Date Recorded Sex Assigned at Not on file Legal Sex Female 10:06 PM EDT Gender Identity Not on file Sexual Orientation Not on file documented as of this encounter Plan of Treatment Scheduled Referrals Name Type Priority Associated Diagnoses Orde r Schedule Ambulatory referral to [facility] Physical Therapy Outpatient Referral Routine Encounter for rehabilitation Ordered: 05/21/2019 documented as of this encounter Visit Diagnoses Diagnosis Encounter for rehabilitation- Primary documented in this encounter Additional Health Concerns Assessment Noted Time PHQ-2 Depression Total Score: 0 09/29/19 18 3:45 PM EDT documented as of this encounter Care Teams Yard Hostler Relationship Specialty Start Date End Date Chelo Nobles FNP [address] [place] [address], [address] [place] [address] [email or web address] PCP - General Family Medicine 09/25/17 02/27/22 Pcp, Unknown PCP - General 02/28/22 documented as of this encounter Additional Source Comments The information contained in this document represents components of the legal health record. It is not the complete legal health record.[facility]
--- OUTSIDE RECORDS SUMMARY | 2025-04-24 18:56 | XMS_ITS | Encounter Summary ---
Author Organization [facility] Address [address] [place] [phone] Phone Care Team Providers Care Cage Maker Machine Name Role Phone Chelo Nobles Carmen SHUTTLE TRUCK DRIVER Primary Care Provider Pcp, Unknown Primary Care Provider Unavailabl e Reason for Referral * MRI/CAT Scan - Closed Specialty Diagnoses / Procedures Referred By Jeremy levine Referred To Contact Radiology Diagnoses Abdominal pain, right lower quadrant Procedures CT Abdomen/Pelvis Marco Flores MD Phone: tel: fax: [email or web address] Referral ID Status Reason Start Date Expiration Date Visits Re quested Visits Authorized [id number] Closed 04/03/2018 06/01/2018 1 1 Encounter Details Date Type Department Care Team (Late st Contact Info) Description 04/04/2018 Ancillary Orders Virtual Department [address] [place] [address] Marco Flores MD [address] [address] [email or web address] Abdominal pain, right lower quadrant Social History Tobacco Use Types Packs/Day Years [...] as of this encounter Plan of Treatment Not on file documented as of this encounter Results * CT ABDOMEN/PELVIS WITHOUT CONTRAST (04/09/2018 12:13 PM EDT) Anatomical Region Laterality Modality Abdomen, Pelvis Computed Tomogra phy 04/09/2018 12:5 4 PM EDT Impressions 04/09/2018 2:08 PM EDT No evidence of right ureteral stone or appendicitis to account for the right- sided pain. Atrophy lower pole of the right kidney may indicate a vascular etiology from a vascular anomaly or insult. Some calcification there may be in part related to the scarring but a few tiny non-obstructing stones may be present as well. Probable sequestered diverticulum at the right colon. TOTAL CTDIvol: 5.2 mGy POS - [id number] Edited by: Loyda Gray on 04/09/2018 1:36 PM Narrative 04/09/2018 2:08 PM EDT HISTORY: Right flank pain and right lower quadrant pain. COMPARISON: None. TECHNIQUE: Unenhanced CT obtained from above the kidneys through the inferior pubic rami. Sagittal and coronal reformats generated. Automated exposure control utilized. FINDINGS: Unenhanced imaging has diminished sensitivity for inflammatory or neoplastic processes. Costophrenic angles: No findings of concern. Liver and spleen: Subcapsular splenic calcification appears fairly coarse and may be related to an old trauma. Remote infection also possible. Biliary tree and pancreas: No findings of concern. Adrenals and : Prominent atrophy through much of the lower pole of the right kidney with an overall small right kidney. Some tiny cortical and possibly corticomedullary calcifications measure only a few millimeters seen in the atrophic portion of the lower right kidney. There appears to be compensatory hypertrophy in the left kidney. There is a dominant cyst in the upper pole measuring approximately 4 x 3 x 4 cm. No hydronephrosis in either kidney. No bladder stones. Bladder largely decompressed. There are some phleboliths near the posterior margin of the bladder on the right but these appear to be below the UVJ. No ureteral stones seen. Uterus present. No adnexal mass identified. Bowel: No obstruction. Terminal ileum unremarkable. Appendix retrocecal but otherwise unremarkable. No evidence of colitis. Fairly extensive sigmoid diverticulosis incidentally noted. No evidence of diverticulitis. A fairly dense diverticulum noted on the mesenteric side of the ascending colon with some hyperdense material within. Nodes: No adenopathy detected for technique. Vascular: Moderate atherosclerotic changes. No abdominal aortic aneurysm or iliac aneurysm. Soft tissues: No ascites, inflammatory change or fluid collection. No bowel-containing hernias. Bones: Prominent hemangioma of L3. No compression deformity or bony destructive lesions identified. Procedure Note Tee Peguero MD - 04/09/2018 HISTORY: Right flank pain and right lower quadrant pain. COMPARISON: None. TECHNIQUE: Unenhanced CT obtained from above the kidneys through theinferior pubic rami. Sagittal and coronal reformats generated. Automatedexposure control utilized. FINDINGS: Unenhanced imaging has diminished sensitivity for inflammatory orneoplastic processes. Costophrenic angles: No findings of concern. Liver and spleen: Subcapsular splenic calcification appears fairly coarseand may be related to an old trauma. Remote infection also possible. Biliary tree and pancreas: No findings of concern. Adrenals and : Prominent atrophy through much of the lower pole of theright kidney with an overall small right kidney. Some tiny cortical andpossibly corticomedullary calcifications measure only a few millimetersseen in the atrophic portion of the lower right kidney. There appears gianna compensatory hypertrophy in the left kidney. There is a dominant cystin the upper pole measuring approximately 4 x 3 x 4 cm. No hydronephrosisin either kidney. No bladder stones. Bladder largely decompressed. Thereare some phleboliths near the posterior margin of the bladder on the rightbut these appear to be below the UVJ. No ureteral stones seen. Uteruspresent. No adnexal mass identified. Bowel: No obstruction. Terminal ileum unremarkable. Appendix retrocecalbut otherwise unremarkable. No evidence of colitis. Fairly extensivesigmoid diverticulosis incidentally noted. No evidence of diverticulitis.A fairly dense diverticulum noted on the mesenteric side of the ascendingcolon with some hyperdense material within. Nodes: No adenopathy detected for technique. Vascular: Moderate atherosclerotic changes. No abdominal aortic aneurysmor iliac aneurysm. Soft tissues: No ascites, inflammatory change or fluid collection. Nobowel- containing hernias. Bones: Prominent hemangioma of L3. No compression deformity or bonydestructive lesions identified. IMPRESSION: No evidence of right ureteral stone or appendicitis to account for theright- sided pain. Atrophy lower pole of the right kidney may indicate avascular etiology from a vascular anomaly or insult. Some calcificationthere may be in part related to the scarring but a few tinynon-obstructing stones may be present as well. Probable sequestereddiverticulum at the right colon. TOTAL CTDIvol: 5.2 mGy POS - [id number] Edited by: Loyda Gray on 04/09/2018 1:36 PM us Marco Flores MD IMG CT ABD/PELVIS Final Result documented in this encounter Visit Diagnoses Diagnosis Abdominal pain, right lower quadrant Abdominal pain, right lower quadrant documented in this encounter Additional Health Concerns Assessment Noted Time PHQ-2 Depression Total Score: 0 09/29/19 18 3:45 PM EDT documented as of this encounter Care Teams Cage Maker Machine Relationship Specialty Start Date End Date NaifChelo cornejo, SHUTTLE TRUCK DRIVER [address] [place] [address], [address] [place] [address] [email or web address] PCP - General Family Medicine 09/25/17 02/27/22 Pcp, Unknown PCP - General 02/28/22 documented as of this encounter Additional Source Comments The information contained in this document represents components of the legal health record. It is not the complete legal health record.[facility]
--- OUTSIDE RECORDS SUMMARY | 2025-04-24 18:56 | XMS_ITS | Encounter Summary ---
Author Organization [facility] Address [address] [place] [address] [place] [address] Phone Care Team Providers Care Voice Network Engineer Name Role Phone Chelo Nobles Primary Care Provider [phone] Pcp, Unknown Primary Care Provider Unavailabl e Encounter Details Date Type Department Care Team (Late st Contact Info) Description 04/04/2018 Procedure [facility], Ct Scan - [address] [address] Social History Tobacco Use Types Packs/Day Years [...] on file documented as of this encounter Visit Diagnoses Not on filedocumented in this encounter Additional Health Concerns Assessment Noted Time PHQ-2 Depression Total Score: 0 09/29/19 18 3:45 PM EDT documented as of this encounter Care Teams Voice Network Engineer Relationship Specialty Start Date End Date Chelo Nobles FNP [address] [place] [address] [address] [place] [address] PCP - General Family Medicine 09/25/17 02/27/22 Pcp, Unknown PCP - General 02/28/22 documented as of this encounter Additional Source Comments The information contained in this document represents components of the legal health record. It is not the complete legal health record.[facility]
--- OUTSIDE RECORDS SUMMARY | 2025-04-24 18:56 | XMS_ITS | Clinical Summary ---
Author Organization [facility] Address [address] [place] [address] Phone Care Team Providers Care Reimbursement Representative Name Role Phone Pcp, Unknown Primary Care [...] would prefer this to be done with resident director. History of transient ischemic attack (TIA) 09/28 [...] COLONOSCOPY 03/07/2023 03/07/2018 COLORECTAL CANCER SCREENING 03/07/2023 INFLUENZA VACCINE (#1) 2025 COVID-19 VACCINE (3 - 2024-2 6 season) 2025 12/03/2020, 11/04/2020 OSTEOPOROSIS SCREENING INITI AL (ONE-TIME) [...] PM EDT Findings consistent with osteoporosis. POS -[id number] Narrative 03/28/2018 7:20 PM EDT This is [...] performed. IMPRESSION: Findings consistent with osteoporosis. POS -[id number] Khadar Marte MD IMG BD BONE DENSITY DEXA Final Result * COLONOSCOPY FOR RESULT ENTRY ONLY (03/07/2018) Historical Provider HEALTH MAINTENANCE Final Result * (ABNORMAL) Lipid panel (10/25/2017 8:08 AM EDT) HDL 70 mg/dL [facility] Comment: Interpretation: Risk Level Females Decreased >55mg/dL Average 50-55 mg/dL Increased <50 mg/dL CHOLESTEROL 149 0 - 240 mg/dL [facility] TRIGLYCERIDES 54 30 - 160 mg/dL [facility] LDL 68 50 - 129 mg/dL [facility] Comment: LDL levels in terms of risk for coronary heart disease: <100 mg/dL: Optimal 100-129 mg/dL: Near or above optimal 130-159 mg/dL: Borderline high 160-189 mg/dL: High >190 mg/dL: Very High CARDIAC RISK RATIO 2.1(L) 3.3 - 4.4 C [facility] Blood 10/25/2017 8:08 AM EDT 10/25/2017 8:14 AM EDT Chelo Nobles [employer] [facility] BLOOD ORDERABLES Final Re sult [facility] [address] [place] [address] from Last 3 Months or Most Recently Relevant to Health Maintenance Insurance MEDICARE PPO BLUE REPLACEMENT MEDICARE PPO BLUE REPLACEMENT MEDICARE PPO BLUE REPLACEMENT [place] [address] [address] MEDICARE PPO BLUE REPLACEMENT [place] [address] MEDICARE PPO BLUE REPLACEMENT [place] [address] MEDICARE PPO BLUE REPLACEMENT [place] [place] [address] MEDICARE PPO BLUE REPLACEMENT MEDICARE PPO BLUE REPLACEMENT [place] [place] [address] MEDICARE PPO BLUE REPLACEMENT Care Teams Reimbursement Representative Relationship Specialty Start Date End Date Pcp, Unknown PCP - General 02/28/22 Additional Source Comments The information contained in this document represents components of the legal health record. It is not the complete legal health record.[facility]
--- OUTSIDE RECORDS SUMMARY | 2025-04-24 18:57 | XMS_ITS | Encounter Summary ---
Author Organization [facility] Address [address] [place] [address] [place] [address] Phone Care Team Providers Care Data Control Clerk Supervisor Name Role Phone Chelo Nobles BUSINESS COMMUNICATIONS INSTRUCTOR Primary Care Provider Pcp, Unknown Primary Care Provider Unavailabl e Encounter Details Date Type Department Care Team (Latest Contact Info) Description 04/03/2018 Transcribe Orders [facility] [address] 2[address] [place] [address] Marco Flores MD 10 [facility] 2 [place] [address] Abdominal pain, right lower quadrant (Primary Dx) Social History Tobacco Use Types [...] documented as of this encounter Results * (ABNORMAL) Urinalysis w/reflex Urine Culture (04/03/2018 2:36 PM EDT) COLOR Yellow Yellow CLARITY Clear GLUCOSE Negative Negative BILI Negative Negative KETONES Negative Negative SPECIFIC GRAVITY <1.005 1.005 - 1.030 BLOOD Negative Negative PH 6.0 5.0 - 8.0 Protein-UA Negative Negative NITRITE Negative Negative Leukocyte esterase, ur 1+(A) Negative Urine (Urine) 04/03/2018 2:3 6 PM EDT 04/03/2018 2:52 PM EDT us Marco Flores MD URINE ORDERABLES Final Result Performing Organization Address City/State/[facility] Co de Phone Number [address] [place] [address] * Comprehensive metabolic panel (04/03/2018 2:36 PM EDT) SODIUM 140 133 - 146 mmol/L POTASSIUM 4.9 3.3 - 5.1 mmol/L CHLORIDE 101 96 - 108 mmol/L CO2 27 21 - 35 mmol/L BUN 13 6 - 19 mg/dL CREATININE 0.70 0.5 - 1.5 mg/dL GLUCOSE 93 70 - 99 mg/dL ALBUMIN 4.5 3.9 - 4.8 g/dL TOTAL PROTEIN 7.8 6.5 - 8.0 g/dL CALCIUM 10.1 8.4 - 10.3 mg/dL ALKALINE PHOSPHATASE 54 39 - 117 U/L TOTAL BILIRUBIN 0.4 0.0 - 1.2 mg/dL AST 28 0 - 37 U/L ALT 20 0 - 40 U/L GLOBULIN 3.3 1 - 4.8 g/dL EGFR 88 >59 mL/min/1.7 3m2 Comment:If patient is black, multiply result by 1.159. Estimated glomerular filtration rate calculated using the CKD-EPI equation. ANION GAP 17 10 - 20 mmol/L Blood 04/03/2018 2:36 PM EDT 04/03/2018 2:39 PM EDT us Marco Flores MD LAB BLOOD ORDERABLES Final Resul t Performing Organization Address [facility] Co de Phone Number [address] [address] * (ABNORMAL) CBC (04/03/2018 2:36 PM EDT) WBC 7.27 3.40 - 11.20 K/uL RBC 4.32 3.80 - 4.80 M/uL HGB 11.8(L) 12.0 - 15.0 g/dL HCT 37.5 36.0 - 46.0 % PLT 211 130 - 400 K/uL MCV 86.8 79.0 - 98.0 fL MCH 27.3 27.0 - 34.8 pg MCHC 31.5 31.5 - 36.0 g/dL RDW 13.3 10.8 - 14.6 % MPV 11.2 9.4 - 12.4 fl NRBC 0.00 /100 WBCs ABSOLUTE NRBC 0.00 K/uL Blood 04/03/2018 2:36 PM EDT 04/03/2018 2:39 PM EDT us Marco Flores MD LAB BLOOD ORDERABLES Final Resul t Performing Organization Address [facility] Co de Phone Number [address] [address] documented in this encounter Visit Diagnoses Diagnosis Abdominal pain, right lower quadrant- Primary documented in this encounter Additional Health Concerns Assessment Noted Time PHQ-2 Depression Total Score: 0 09/29/19 18 3:45 PM EDT documented as of this encounter Care Teams Data Control Clerk Supervisor Relationship Specialty Start Date End Date Chelo Nobles DecemberENID [address] [place] [address], [address] [place] [address] PCP - General Family Medicine 09/25/17 02/27/22 Pcp, Unknown PCP - General 02/28/22 documented as of this encounter Additional Source Comments The information contained in this document represents components of the legal health record. It is not the complete legal health record.[facility]
== END 2025-04-24 15:03 | disposition home or self-care (01) ==
LOC: HO.MRI 15:02
PROVIDERS: Visit Provider Nurse Practitioner Family
DX: N28.89 Other specified disorders of kidney and ureter (principal)
CPT/HCPCS: 74183; A9585

== ENCOUNTER → 2025-04-24 15:20 | Outpatient (BNV) | payer MEDICARE, SELFPAY | PROVIDERS: Visit Provider Radiology Diagnostic Radiology | DX: N28.1 Cyst of kidney, acquired (principal) | CPT/HCPCS: 74183 ==

== ENCOUNTER 2025-05-01 09:23 | Outpatient (AMB) | payer MEDICARE, SELFPAY ==
--- NOTE | 2025-05-01 09:25 | A.OFFVIS_ITS ---
Intake Visit Reasons: 1y/US/PVR Intake Note: Patient is present for 1Y/US/PVR Urology Medication:OXYBUTYNIN,VITAMIN B COMPLEX Antibiotic Allergy:SULFA Blood Thinner:ASPIRIN Last PVR:0ML'S Todays PVR:80ML'S Cae Engineer Required: No Allergies sulfur Allergy (Unknown, Verified 05/01/25 12:17) hives Medication List - Last Reconciled 05/01/25 by DAMION ZengP- amlodipine 10 mg PO DAILY 90 days aspirin 81 mg PO DAILY atorvastatin 80 mg PO DAILY estradiol 0.01%(0.1mg/gram) (Estrace) 1 g vaginal 3XW 90 days solifenacin (Vesicare) 5 mg PO DAILY 30 days triamcinolone acetonide 0.1% 1 appl topical BID vitamin B comp and C no.3 (B Complex Plus Vitamin C) 1 cap PO DAILY HPI Comments Details: Danielle is a very pleasant 79-year-old female patient of Dr. Wallace. She has a past medical history of hypercalcemia, atrial arrhythmia, vitamin B12 deficiency, CVA, anemia, osteoporosis, hypertension, hypercholesteremia, and left renal cyst. She presents to the office today for follow-up of her left complex renal cyst. In discussion with the patient today she reports to be doing and feeling well. She reports since her last office visit here she has been experiencing lower urinary tract symptoms. She reports having seeked urgent care services for dysuria and cloudy urine she had been experiencing at which time she has been treated for 2 urinary tract infections. In review of patient's chart it appears urine cultures are as follows: 01/24 E coli, 01/24 Pseudomonas aeruginosa In office urinalysis results reviewed with the patient today 3+ leukocytes nega tive nitrates. We did discuss sending urine out today for urine culture. We also discussed most recent MRI 04/26 left renal upper pole cyst measuring 4.1 cm, Bosniak category 2 per radiology report. No definable right renal lesion. She does report compliance with oxybutynin and feels this has been helpful with episodes of urinary urgency and frequency she typically experiences. However she does at times experience episodes of nocturia up to 2 times per night. PVR today 80 mL. We did discuss at length renal cysts, lower urinary tract symptoms, and urinary tract infections. We did discussed further treatment options and risks and benefits of these treatment options. All questions were answered. She denies hematuria, flank pain, fever, and or chills. She otherwise offers no other issues or concerns at this time. [facility] Medical History Shortness of breath on exertion Hypertension Hypercalcemia Atrial arrhythmia Chest pain Vitamin B12 deficiency Impacted cerumen of right ear TSH elevation CVA (cerebral vascular accident) Anemia Left renal mass Osteoporosis Hypercholesterolemia Surgical History Hx of colonoscopy History of cardiac cath History of ankle surgery History of bunionectomy History of breast implant History of tubal ligation Family History Father Colon cancer Mother CHF (congestive heart failure) Daughter In good health Son In good health Sister In good health Sister In good health Sister In good health Brother In good health Social History Housing: House Alcohol intake: current Alcohol intake frequency: a few times a month Patient Tobacco Use Status: Never used Tobacco e-Cigarette/Vaping Use: Never Used Second Hand Smoke Exposure: No service: No Current occupational status: retired Cognitive needs: No Hearing needs: Yes Vision needs: Yes Review of Systems Const Reports as per [facility] Eyes Reports no additional complaints ENT Reports no additional complaints Card Reports as per HPI Resp Reports no additional complaints GI Reports no additional complaints Reports as per HPI Musc Reports as per [facility] Neuro Reports as per HPI Psych Reports no additional complaints Endo Reports no additional complaints Malik/Lymph Reports no additional complaints Aller/Immun Reports no additional complaints Physical Exam Const General: cooperative, healthy appearing, comfortable, no acute distress, well developed, alert and awake Orientation/consciousness: patient oriented x3 Limitations: no limitations HEENT Head: Yes normal to inspection, Yes normocephalic and Yes atraumatic Ears: hearing grossly normal bilaterally Eyes General: appearance normal, both eyes and all related structures Neck Neck: Yes normal visual inspection and Yes trachea midline Chest Chest palpation & inspection: normal inspection of the chest Resp Effort & Inspection: normal respiratory effort and able to speak in complete sentences Cardio Rate: regular rate GI Inspection: Yes normal to inspection General: Yes no CVA tenderness Back/Spine/Pelvis Back: no CVA tenderness Skin General skin exam: no rashes or lesions noted Neuro General: patient oriented x3 Extrem General: Yes normal to inspection Psych Appearance: grossly normal and well kempt Mental Status: mental status grossly normal Speech and movement: Normal speech and movement present and Clear speech present Affect: normal affect Attitude: cooperative Thought process: Normal thought process present Thought content: Normal thought content present Insight: Fair insight present (Psych) Judgement: Fair judgement present (Psych) Office Procedures Post Void Residual Post Residual Void Post Void Residual (PVR): 80 [id number] Void Residual by ultrasound Results AMB Urinalysis, Automated UA Leukoctes 500 Oleksandr/uL Last Edit by TYESHA Navarrete on 05/01/25 09:41 UA Nitrite Negative Last Edit by TYESHA Navarrete on 05/01/25 09:41 UA Urobilinogen 0.2 mg/dL Last Edit by TYESHA Navarrete on 05/01/25 09:4 1 UA Protein 15 mg/dL Last Edit by TYESHA Navarrete on 05/01/25 09:41 UA pH 6.0 Last Edit by TYESHA Navarrete on 05/01/25 09:41 UA Blood 25 Carson/uL Last Edit by TYESHA Navarrete on 05/01/25 09:41 UA Specific [place] 1.010 Last Edit by TYESHA Navarrete on 05/01/25 09: 41 UA Ketone Negative Last Edit by TYESHA Navarrete on 05/01/25 09:41 UA Bilirubin 0 mg/dL Last Edit by TYESHA Navarrete on 05/01/25 09:41 UA Glucose 0 mg/dL Last Edit by TYESHA Navarrete on 05/01/25 09:41 Results Reviewed Results Reviewed: Laboratory Last Values Urine pH (Auto) 6.0 05/01/25 09:40 Specific [place] (Auto) 1.010 05/01/25 09:40 Urine Protein (Auto) 15 mg/dL 05/01/25 09:40 Glucose (UA)(Auto) 0 mg/dL 05/01/25 09:40 Urine Ketones (Auto) Negative 05/01/25 09:40 Urine Blood (Auto) 25 Carson/uL 05/01/25 09:40 Urine Nitrite (Auto) Negative 05/01/25 09:40 Urine Bilirubin (Auto) 0 mg/dL 05/01/25 09:40 Urine Urobilinogen (Auto) 0.2 mg/dL 05/01/25 09:40 Leukocyte Esterase (Auto) 500 Oleksandr/uL 05/01/25 09:40 Date of Service: 04/24/25 Procedure(s): MR abdomen wo/w con Findings: Liver is free of focal lesions and ductal dilatation. Gallbladder appears unremarkable. Spleen appears unremarkable. Pancreas and adrenal glands appear unremarkable. Left kidney reveals an upper pole nonenhancing T2 hyperintense cyst measuring up to 3.6 cm cross-sectional dimension (5; 18 and 4.1 cm oblique craniocaudad dimension (3; 7). There are very thin internal septations (Bosniak category 2). Right kidney reveals marked atrophy or hypoplasia of the lower pole (3; 9 and 17; 20). Apparent T2 hyperintensity within the hypoplastic or atrophic lower pole cortex (5; 24), could suggest history of prior hemorrhage. 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 No definable right renal lesions or masses otherwise appreciated. No free intraperitoneal fluid or retroperitoneal masses or adenopathy. Abdominal aorta is normal caliber. Bowel loops reveal no abnormal wall thickening or distention. Osseous structures reveal no destructive osseous lesions. Impression: 1. Left renal upper pole cyst measuring up to 4.1 cm, Bosniak category 2. 2. 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 No definable right renal lesions. Assessment & Plan Assessment & Plan (1) Complex renal cyst: Code(s): N28.1 - Cyst of kidney, acquired Category: Medical (2) Overactive bladder: Code(s): N32.81 - Overactive bladder Category: Medical (3) Urinary urgency: Code(s): R39.15 - Urgency of urination Category: Medical (4) UTI (urinary tract infection): Code(s): N39.0 - Urinary tract infection, site not specified Category: Medical Qualifiers: Urinary tract infection type: acute cystitis Hematuria presence: with hematuria Qualified Code(s): N30.01 - Acute cystitis with hematuria (5) Lower urinary tract symptoms: Code(s): R39.9 - Unspecified symptoms and signs involving the genitourinary system Category: Medical (6) Nocturia: Code(s): R35.1 - Nocturia Category: Medical Plan In office urinalysis results reviewed with the patient today; as noted above; will send for urine culture; will await results for potential treatment. PVR 80 mL Start Estrace cream as discussed and prescribed. Stop oxybutynin. Start VESIcare as discussed and prescribed. Most recent MRI results reviewed with the patient today; as noted above. We discussed potential causes of renal cysts, urinary tract infections, and lower urinary tract symptoms; we discussed further treatment options and risks and benefits of these treatment options. All questions were answered. Follow-up in 3 months with PVR; or sooner with any issues, concerns, and or questions. Orders: Orders AMB Urinalysis Automated Today Z13.9 - Encounter for screening, unspecified Medications: New estradiol 0.01%(0.1mg/gram) (Estrace) 1 g vaginal 3XW 42.5 grams 2RF 90 days solifenacin (Vesicare) 5 mg PO DAILY 30 tabs 3RF 30 days Discontinued oxybutynin chloride ER Discontinued Reason: Doctor's Order 10 mg PO DAILY 90 days 90 tabs 3RF ciprofloxacin HCl Discontinued Reason: Patient Completed Course 500 mg PO BID 10 tabs 0RF Patient Instructions: The patient had an opportunity to ask questions regarding the treatment plan. All questions were answered. Physical exam, labs, and imaging were discussed and reviewed in detail. As well as risks, benefits, and discussion of treatment choices. No major barriers to understanding were identified. The patient expressed understanding and agreement with the above treatment plan. The patient was made aware they should contact our office by phone for worsening of their current condition, the appearance of new symptoms, or with any questions or concerns. Compliance is encouraged with any medications and follow up testing that is ordered. It is a privilege to be allowed the opportunity to participate in? your urological care.? Again, if you have any questions or concerns If you have any questions or concerns please do not hesitate to contact me. The office is [phone]. This note is constructed using voice recognition software. While every effort has been made to ensure accuracy wiring mechanic errors may have been included. Yours sincerely, Kaitlin Pinto, CLAMP FORKLIFT OPERATOR-BC Coding Level of Care Code Est Pt Level 4 (76233) Complex EM visit Add On G2211 Diagnoses Complex renal cyst N28.1 Overactive bladder N32.81 Urinary urgency R39.15 Acute cystitis with hematuria N30.01 Urinary tract infection type: acute cystitis Hematuria presence: with hematuria Lower urinary tract symptoms R39.9 Nocturia R35.1 CPT Codes Post Residual Void - PVR CPT Code: 10046-Nsvf Void Residual by ultrasound ([id number])
--- OUTSIDE RECORDS SUMMARY | 2025-05-01 10:47 | XMS_ITS | Encounter Summary ---
Author Organization [facility] Address [address] [place] [address] Phone Care Team Providers Care Floorperson Name Role Phone Chelo Nobles Carmen [facility] Primary Care Provider [phone] Pcp, Unknown Primary Care Provider Unavailabl e Reason for Referral * Physical Therapy (Routine) - Closed Specialty Diagnoses / Procedures Referred By Jeremy levine Referred To Contact Physical Therapy Diagnoses Encounter for rehabilitation Edinson Gillis MD Phone: tel: fax: [address] [address] Phone: tel: Referral ID Status Reason Start Date Expiration Date Visits Re quested Visits Authorized [id number] Closed 05/21/2019 05/21/2020 99 99 Encounter Details Date Type Department Care Team (Latest Contact Info) Description 05/21/2019 Transcribe Orders [facility] [address] [place] [address] Edinson Gillis MD [address] [place] [address] [facility] Augustine MagallonyoJASS gilman [address] Encounter for rehabilitation (Primary Dx) Social History [...] Diagnoses Orde r Schedule Ambulatory referral to [facility] Physical Therapy Outpatient Referral Routine Encounter for rehabilitation Ordered: 05/21/2019 documented as of this encounter Visit Diagnoses Diagnosis Encounter for rehabilitation- Primary documented in this encounter Additional Health Concerns Assessment Noted Time PHQ-2 Depression Total Score: 0 09/29/19 18 3:45 PM EDT documented as of this encounter Care Teams Floorperson Relationship Specialty Start Date End Date Chelo Nobles FNP [address] [place] [address], [address] [place] [address] [email or web address] PCP - General Family Medicine 09/25/17 02/27/22 Pcp, Unknown PCP - General 02/28/22 documented as of this encounter Additional Source Comments The information contained in this document represents components of the legal health record. It is not the complete legal health record.[facility]
--- OUTSIDE RECORDS SUMMARY | 2025-05-01 10:47 | XMS_ITS | Encounter Summary ---
Author Organization [facility] Address [address] [place] [address] [place] [address] Phone Care Team Providers Care Learning Engineer Name Role Phone Chelo Nobles Primary Care Provider Pcp, Unknown Primary Care Provider Unavailabl e Encounter Details Date Type Department Care Team (Late st Contact Info) Description 04/04/2018 Procedure Pass [facility], Ct Scan - [address] [address] Social History Tobacco Use Types Packs/Day Years [...] documented as of this encounter Care Teams Learning Engineer Relationship Specialty Start Date End Date Chelo Nobles FNP [address] [place] [address] [address] [place] [address] PCP - General Family Medicine 09/25/17 02/27/22 Pcp, Unknown PCP - General 02/28/22 documented as of this encounter Additional Source Comments The information contained in this document represents components of the legal health record. It is not the complete legal health record.[facility]
--- OUTSIDE RECORDS SUMMARY | 2025-05-01 10:47 | XMS_ITS | Clinical Summary ---
Author Organization [facility] Address [address] [place] [address] Phone Care Team Providers Care At Risk Specialist Name Role Phone Pcp, Unknown Primary Care [...] would prefer this to be done with stuntman. History of transient ischemic attack (TIA) 09/28 [...] PM EDT Findings consistent with osteoporosis. POS -[id number] Narrative 03/28/2018 7:20 PM EDT This is [...] performed. IMPRESSION: Findings consistent with osteoporosis. POS -[id number] Khadar Marte MD IMG BD BONE DENSITY DEXA Final Result * COLONOSCOPY FOR RESULT ENTRY ONLY (03/07/2018) Historical Provider HEALTH MAINTENANCE Final Result * (ABNORMAL) Lipid panel (10/25/2017 8:08 AM EDT) HDL 70 mg/dL [facility] Comment: Interpretation: Risk Level Females Decreased >55mg/dL Average 50-55 mg/dL Increased <50 mg/dL CHOLESTEROL 149 0 - 240 mg/dL [facility] TRIGLYCERIDES 54 30 - 160 mg/dL [facility] LDL 68 50 - 129 mg/dL [facility] Comment: LDL levels in terms of risk for coronary heart disease: <100 mg/dL: Optimal 100-129 mg/dL: Near or above optimal 130-159 mg/dL: Borderline high 160-189 mg/dL: High >190 mg/dL: Very High CARDIAC RISK RATIO 2.1(L) 3.3 - 4.4 C [facility] Blood 10/25/2017 8:08 AM EDT 10/25/2017 8:14 AM EDT Chelo Nobles MACHINE MAINTENANCE REPAIRER LAB BLOOD ORDERABLES Final Re sult [facility] [address] [place] [address] from Last 3 Months or Most Recently Relevant to Health Maintenance Insurance MEDICARE PPO BLUE REPLACEMENT MEDICARE PPO BLUE REPLACEMENT MEDICARE PPO BLUE REPLACEMENT [address] [address] MEDICARE PPO BLUE REPLACEMENT [address] [place] [address] MEDICARE [address]PO BLUE [address] [place] [address] MED[address] [place] [address] MEDICARE PPO BLUE REPLACEMENT MEDICARE PPO BLUE REPLACEMENT [address] [address] MEDICARE PPO BLUE REPLACEMENT Care Teams At Risk Specialist Relationship Specialty Start Date End Date Pcp, Unknown PCP - General 02/28/22 Additional Source Comments The information contained in this document represents components of the legal health record. It is not the complete legal health record.[facility]
--- OUTSIDE RECORDS SUMMARY | 2025-05-01 10:48 | XMS_ITS | Encounter Summary ---
Author Organization [facility] Address [address] [place] [address] Phone Care Team Providers Care Dance Coach Name Role Phone Chelo Nobles Carmen [employer] Primary Care Provider [phone] Pcp, Unknown Primary Care Provider Unavailabl e Reason for Referral * MRI/CAT Scan - Closed Specialty Diagnoses / Procedures Referred By Jeremy levine Referred To Contact Radiology Diagnoses Abdominal pain, right lower quadrant Procedures CT Abdomen/Pelvis Marco Flores MD Phone: tel: fax: [email or web address] Referral ID Status Reason Start Date Expiration Date Visits Re quested Visits Authorized [id number] Closed 04/03/2018 06/01/2018 1 1 Encounter Details Date Type Department Care Team (Late st Contact Info) Description 04/04/2018 Ancillary Orders Virtual Department [address] [place] [address] Marco Flores MD [address] [address] [email or web address] Abdominal pain, right lower quadrant Social History [...] documented as of this encounter Care Teams Dance Coach Relationship Specialty Start Date End Date NaifChelo cornejo, [employer]ER [address] [place] [address], [address] [place] [address] [email or web address] PCP - General Family Medicine 09/25/17 02/27/22 Pcp, Unknown PCP - General 02/28/22 documented as of this encounter Additional Source Comments The information contained in this document represents components of the legal health record. It is not the complete legal health record.[facility]
--- OUTSIDE RECORDS SUMMARY | 2025-05-01 10:48 | XMS_ITS | Encounter Summary ---
Author Organization [facility] Address [address] [place] [address] [place] [id number] Phone Care Team Providers Care Asbestos Worker Helper Name Role Phone Chelo Nobles ACADEMIC PHYSICIAN Primary Care Provider [phone] Pcp, Unknown Primary Care Provider Unavailabl e Encounter Details Date Type Department Care Team (Latest Contact Info) Description 04/03/2018 Transcribe Orders [facility] [address] [place] [address] Marco Flores MD [address] [facility] [address] [place] [address] Abdominal pain, right lower quadrant (Primary Dx) [...] (04/03/2018 2:36 PM EDT) COLOR Yellow Yellow [facility] CLARITY Clear [facility] GLUCOSE Negative Negative [facility] BILI Negative Negative [facility] KETONES Negative Negative [facility] SPECIFIC GRAVITY <1.005 1.005 - 1.030 [facility] BLOOD Negative Negative [facility] PH 6.0 5.0 - 8.0 [facility] Protein-UA Negative Negative [facility] NITRITE Negative Negative [facility] Leukocyte esterase, ur 1+(A) Negative [facility] Urine (Urine) 04/03/2018 2:3 6 PM EDT 04/03/2018 2:52 PM EDT us Marco Flores MD URINE ORDERABLES Final Result Performing Organization Address City/State/[facility] Co de Phone Number [facility] [address] [place] [address] * Comprehensive metabolic panel (04/03/2018 2:36 PM EDT) SODIUM 140 133 - 146 mmol/L [facility] POTASSIUM 4.9 3.3 - 5.1 mmol/L [facility] CHLORIDE 101 96 - 108 mmol/L [facility] CO2 27 21 - 35 mmol/L [facility] BUN 13 6 - 19 mg/dL [facility] CREATININE 0.70 0.5 - 1.5 mg/dL [facility] GLUCOSE 93 70 - 99 mg/dL [facility] ALBUMIN 4.5 3.9 - 4.8 g/dL [facility] TOTAL PROTEIN 7.8 6.5 - 8.0 g/dL [facility] CALCIUM 10.1 8.4 - 10.3 mg/dL [facility] ALKALINE PHOSPHATASE 54 39 - 117 U/L [facility] TOTAL BILIRUBIN 0.4 0.0 - 1.2 mg/dL [facility] AST 28 0 - 37 U/L [facility] ALT 20 0 - 40 U/L [facility] GLOBULIN 3.3 1 - 4.8 g/dL [facility] EGFR 88 >59 mL/min/1.7 3m2 [facility] Comment:If patient is black, multiply result by 1.159. Estimated glomerular filtration rate calculated using the CKD-EPI equation. ANION GAP 17 10 - 20 mmol/L [facility] Blood 04/03/2018 2:36 PM EDT 04/03/2018 2:39 PM EDT us Marco Flores MD LAB BLOOD ORDERABLES Final Resul t Performing Organization Address [facility] Co de Phone Number [address] [address] * (ABNORMAL) CBC (04/03/2018 2:36 PM EDT) WBC 7.27 3.40 - 11.20 K/uL [facility] RBC 4.32 3.80 - 4.80 M/uL [facility] HGB 11.8(L) 12.0 - 15.0 g/dL [facility] HCT 37.5 36.0 - 46.0 % [facility] PLT 211 130 - 400 K/uL [facility] MCV 86.8 79.0 - 98.0 fL [facility] MCH 27.3 27.0 - 34.8 pg [facility] MCHC 31.5 31.5 - 36.0 g/dL [facility] RDW 13.3 10.8 - 14.6 % [facility] MPV 11.2 9.4 - 12.4 fl [facility] NRBC 0.00 /100 WBCs [facility] ABSOLUTE NRBC 0.00 K/uL [facility] Blood 04/03/2018 2:36 PM EDT 04/03/2018 2:39 PM EDT us Marco Flores MD LAB BLOOD ORDERABLES Final Resul t Performing Organization Address [facility] Co de Phone Number [address] [phone] documented in this encounter Visit Diagnoses Diagnosis Abdominal pain, right lower quadrant- Primary documented in this encounter Additional Health Concerns Assessment Noted Time PHQ-2 Depression Total Score: 0 09/29/19 18 3:45 PM EDT documented as of this encounter Care Teams Asbestos Worker Helper Relationship Specialty Start Date End Date Chelo Nobles DecemberENID [address] [place] [address], [address] [place] [address] PCP - General Family Medicine 09/25/17 02/27/22 Pcp, Unknown PCP - General 02/28/22 documented as of this encounter Additional Source Comments The information contained in this document represents components of the legal health record. It is not the complete legal health record.[facility]
== END 2025-05-01 10:19 | disposition home or self-care (01) ==
LOC: HO.HUSH 09:23
PROVIDERS: PCP Internal Medicine; Visit Provider Nurse Practitioner Family
DX: N28.1 Cyst of kidney, acquired (principal); N32.81 Overactive bladder; R39.15 Urgency of urination; N30.01 Acute cystitis with hematuria; R39.9 Unspecified symptoms and signs involving the genitourinary system; R35.1 Nocturia; Z13.9 Encounter for screening, unspecified
CPT/HCPCS: 99214; G2211

== ENCOUNTER → 2025-05-01 09:23 | Outpatient (BNVA) | payer MEDICARE, SELFPAY | PROVIDERS: PCP Internal Medicine; Visit Provider Nurse Practitioner Family | DX: N28.1 Cyst of kidney, acquired (principal); N32.81 Overactive bladder; N30.01 Acute cystitis with hematuria; R39.15 Urgency of urination; R39.9 Unspecified symptoms and signs involving the genitourinary system; R35.1 Nocturia | CPT/HCPCS: 51798; 81003; 99212 ==